=== PATIENT | female | born 1960 | race Two or more races ===

== ENCOUNTER 2020-01-08 15:55 | Outpatient (REF) | payer OTHER, SELFPAY ==
[2020-01-08 17:12] LABS: MANUAL DIFF FLAG NO
[2020-01-08 17:29] LABS: Basophils Percent Auto 0.3 % (0-2); Eosinophils Absolute Auto 0.1 X10*3/uL (0.0-0.4); Eosinophils Percent Auto 0.8 % (0-4); Hematocrit 32.1 % (37-47); Hemoglobin 9.9 g/dl (12.0-16.0); Imm Gran Abs Auto 0.01 X10*3/uL (0.00-0.03); Imm Gran Pct Auto 0.2 % (0.0-0.4); Immature Retic Fraction 7.7 % (3.0-15.9); Lymphocytes Absolute Auto 2.4 X10*3/uL (1.2-4.9); Lymphocytes Percent Auto 36.4 % (20-40); Mean Corpuscular HGB Conc 30.8 g/dl (31.0-35.0); Mean Corpuscular Hemoglobin 23.4 pg (27.0-33.0); Mean Corpuscular Volume 75.9 fL (80-98); Mean Platelet Volume 11.1 fL (9.4-12.3); Monocytes Absolute Auto 0.7 X10*3/uL (0.1-1.2); Monocytes Percent Auto 10.8 % (2-11); Neutrophils Absolute Auto 3.4 X10*3/uL (2.0-8.3); Neutrophils Percent Auto 51.5 % (45-73); Platelet Count 238 X10*3/uL (160-400); Red Blood Count 4.23 X10*6/uL (4.20-5.50); Red Cell Distribution Width 13.8 % (11.0-16.0); Retic HGB Equivalent 26.3 pg (30.0-35.0); Reticulocytes Absolute 0.041 X10*6/uL (0.026-0.095); White Blood Count 6.5 X10*3/uL (4.8-10.8)
[2020-01-08 17:54] LABS: Alanine Aminotransferase 45 U/L (0-31); Albumin Level 4.4 g/dL (3.5-5.0); Alkaline Phosphatase 55 U/L (39-117); Anion Gap 9 (12-20); Aspartate Amino Transferase 33 U/L (5-31); Bilirubin Total 0.2 mg/dL (0.0-1.0); Blood Urea Nitrogen 24 mg/dL (9-16); Calcium 9.4 mg/dL (8.4-10.2); Carbon Dioxide 30 mmol/L (22-29); Chloride 106 mmol/L (96-108); Estimated Glomerular Filt Rate > 60; Glucose Random 72 mg/dL (60-115); Potassium 4.4 mmol/l (3.3-5.1); Sodium 141 mmol/L (135-145); Total Protein 7.4 g/dL (6.5-8.0)
[2020-01-08 17:57] LABS: Ferritin 630 ng/mL (10-250)
== END 2020-01-08 15:56 | disposition home or self-care (01) ==
LOC: HO.LAB 15:55
PROVIDERS: PCP Internal Medicine; Visit Provider Internal Medicine Medical Oncology
DX: Z86.2 Personal history of diseases of the blood and blood-forming organs and certain disorders involving the immune mechanism (principal)
CPT/HCPCS: 36415; 80053; 82728; 85025; 85045

== ENCOUNTER 2020-02-29 10:09 | Outpatient (REF) | payer OTHER, SELFPAY ==
[2020-02-29 11:30] LABS: MANUAL DIFF FLAG NO
[2020-02-29 11:50] LABS: Basophils Percent Auto 0.3 % (0-2); Eosinophils Percent Auto 0.6 % (0-4); Hematocrit 31.9 % (37-47); Imm Gran Abs Auto 0.02 X10*3/uL (0.00-0.03); Imm Gran Pct Auto 0.3 % (0.0-0.4); Lymphocytes Absolute Auto 2.2 X10*3/uL (1.2-4.9); Lymphocytes Percent Auto 31.4 % (20-40); Mean Corpuscular HGB Conc 31.3 g/dl (31.0-35.0); Mean Corpuscular Hemoglobin 23.4 pg (27.0-33.0); Mean Corpuscular Volume 74.7 fL (80-98); Mean Platelet Volume 10.8 fL (9.4-12.3); Monocytes Absolute Auto 0.6 X10*3/uL (0.1-1.2); Monocytes Percent Auto 8.1 % (2-11); Neutrophils Absolute Auto 4.1 X10*3/uL (2.0-8.3); Neutrophils Percent Auto 59.3 % (45-73); Platelet Count 244 X10*3/uL (160-400); Red Blood Count 4.27 X10*6/uL (4.20-5.50); Red Cell Distribution Width 13.7 % (11.0-16.0); White Blood Count 6.9 X10*3/uL (4.8-10.8)
[2020-02-29 12:02] LABS: Alanine Aminotransferase 40 U/L (0-31); Albumin Level 4.6 g/dL (3.5-5.0); Alkaline Phosphatase 52 U/L (39-117); Anion Gap 13 (12-20); Aspartate Amino Transferase 31 U/L (5-31); Bilirubin Total 0.3 mg/dL (0.0-1.0); Blood Urea Nitrogen 18 mg/dL (9-16); Calcium 9.4 mg/dL (8.4-10.2); Carbon Dioxide 27 mmol/L (22-29); Chloride 105 mmol/L (96-108); Estimated Glomerular Filt Rate > 60; Glucose Random 78 mg/dL (60-115); Potassium 4.5 mmol/l (3.3-5.1); Sodium 140 mmol/L (135-145); Total Protein 7.9 g/dL (6.5-8.0)
== END 2020-02-29 10:10 | disposition home or self-care (01) ==
LOC: HO.LAB 10:09
PROVIDERS: PCP Internal Medicine; Visit Provider Internal Medicine
DX: R42 Dizziness and giddiness (principal); R55 Syncope and collapse
CPT/HCPCS: 36415; 80053; 85025

== ENCOUNTER 2020-02-29 10:33 | Outpatient (REF) | payer OTHER, SELFPAY | END 2020-02-29 10:34 | disposition home or self-care (01) | LOC: HO.US 10:33 | PROVIDERS: PCP Internal Medicine; Visit Provider Internal Medicine | DX: Z13.89 Encounter for screening for other disorder (principal) ==

== ENCOUNTER 2020-03-08 14:46 | Outpatient (REF) | payer OTHER, SELFPAY ==
--- NOTE | 2020-03-08 | US_ITS ---
EXAMINATION: US EXTRACRANIAL CAROTID DUPLEX, BILATERAL CLINICAL INFORMATION: Syncope. Dizziness. COMPARISON: None TECHNIQUE: Real-time ultrasound and Doppler techniques (integrating B-mode 2-D vascular images, Doppler spectral analysis and color-flow Doppler imaging) were utilized to interrogate the extracranial carotid arteries, the vertebral arteries and proximal subclavian arteries bilaterally. The degree of stenosis is determined by criteria similar to NASCET. FINDINGS: Right Side: 1. There is no significant atherosclerotic plaque seen in the bifurcation/proximal ICA region. There is some mild calcified plaque with shadowing seen within the right external carotid artery. 2. The common carotid artery PSV proximally is 113 cm/s and distally 93 cm/s. 3. The proximal internal carotid artery velocities are 105 cm/s systolic and 24 cm/s diastolic. 4. The proximal external carotid artery PSV is 130 cm/s. 5. The vertebral artery shows antegrade flow. 6. The subclavian artery waveforms are normal. Left Side: 1. There is no significant atherosclerotic plaque seen in the bifurcation/proximal ICA region. There is some mild calcified plaque with shadowing seen within the left external carotid artery. 2. The common carotid artery PSV proximally is 126 cm/s and distally 111 cm/s. 3. The proximal internal carotid artery velocities are 66 cm/s systolic and 19 cm/s diastolic. 4. The proximal external carotid artery PSV is 98 cm/s. 5. The vertebral artery shows antegrade flow. 6. The subclavian artery waveforms are normal. US/US carotid duplex BI IMPRESSION: 1. RIGHT: Minimal, non-hemodynamically significant stenosis of the proximal right internal carotid artery corresponding to a 0-49% stenosis by velocity criteria. 2. LEFT: Minimal, non-hemodynamically significant stenosis of the proximal left internal carotid artery corresponding to a 0-49% stenosis by velocity criteria.
== END 2020-03-08 14:47 | disposition home or self-care (01) ==
LOC: HO.US 14:46
PROVIDERS: PCP Internal Medicine; Visit Provider Internal Medicine
DX: R55 Syncope and collapse (principal); R42 Dizziness and giddiness
CPT/HCPCS: 93880

== ENCOUNTER → 2020-03-11 13:08 | Outpatient (BNVA) | payer OTHER, SELFPAY | PROVIDERS: PCP Internal Medicine; Visit Provider Nurse Practitioner | DX: Z76.89 Persons encountering health services in other specified circumstances (principal) ==

== ENCOUNTER 2020-04-02 09:34 | Outpatient (REF) | payer OTHER, SELFPAY ==
[2020-04-02 10:31] LABS: Alanine Aminotransferase 31 U/L (0-31); Albumin Level 4.7 g/dL (3.5-5.0); Alkaline Phosphatase 52 U/L (39-117); Anion Gap 10 (12-20); Aspartate Amino Transferase 26 U/L (5-31); Bilirubin Total 0.4 mg/dL (0.0-1.0); Blood Urea Nitrogen 19 mg/dL (9-16); Calcium 9.2 mg/dL (8.4-10.2); Carbon Dioxide 32 mmol/L (22-29); Chloride 103 mmol/L (96-108); Cholesterol 288 mg/dL; Estimated Glomerular Filt Rate > 60; Glucose Fasting 93 mg/dL (60-99); HDL Cholesterol 63 mg/dL; LDL Cholesterol Calculated 201 mg/dl; Potassium 4.2 mmol/l (3.3-5.1); Sodium 141 mmol/L (135-145); Total Protein 7.9 g/dL (6.5-8.0); Triglycerides 121 mg/dL
[2020-04-02 10:51] LABS: Ferritin 836 ng/mL (10-250); Thyroid Stimulating Hormone 1.72 uIU/mL (0.32-4.0)
== END 2020-04-02 09:35 | disposition home or self-care (01) ==
LOC: HO.LAB 09:34
PROVIDERS: PCP Internal Medicine; Visit Provider Internal Medicine
DX: D64.89 Other specified anemias (principal); E04.2 Nontoxic multinodular goiter; R42 Dizziness and giddiness; R55 Syncope and collapse
CPT/HCPCS: 36415; 80053; 80061; 82728; 84443

== ENCOUNTER → 2020-05-06 13:19 | Outpatient (BNVA) | payer OTHER, SELFPAY | PROVIDERS: PCP Internal Medicine; Visit Provider Nurse Practitioner ==

== ENCOUNTER 2020-05-24 06:28 | Outpatient (REF) | payer OTHER, SELFPAY ==
[2020-05-24 07:51] LABS: Alanine Aminotransferase 82 U/L (0-31); Albumin Level 4.5 g/dL (3.5-5.0); Alkaline Phosphatase 57 U/L (39-117); Anion Gap 13 (12-20); Aspartate Amino Transferase 48 U/L (5-31); Bilirubin Total 0.5 mg/dL (0.0-1.0); Blood Urea Nitrogen 13 mg/dL (9-16); Calcium 8.9 mg/dL (8.4-10.2); Carbon Dioxide 27 mmol/L (22-29); Chloride 106 mmol/L (96-108); Cholesterol 124 mg/dL; Estimated Glomerular Filt Rate > 60; Glucose Random 89 mg/dL (60-115); HDL Cholesterol 60 mg/dL; LDL Cholesterol Calculated 52 mg/dl; Potassium 4.7 mmol/L (3.3-5.1); Sodium 141 mmol/L (135-145); Total Protein 7.6 g/dL (6.5-8.0); Triglycerides 63 mg/dL
== END 2020-05-24 06:29 | disposition home or self-care (01) ==
LOC: HO.LAB 06:28
PROVIDERS: PCP Internal Medicine; Visit Provider Internal Medicine
DX: D64.89 Other specified anemias (principal); E78.01 Familial hypercholesterolemia; H81.11 Benign paroxysmal vertigo, right ear; H92.01 Otalgia, right ear
CPT/HCPCS: 36415; 80053; 80061

== ENCOUNTER 2020-06-02 09:08 | Outpatient (REF) | payer OTHER, SELFPAY ==
--- NOTE | ~2020-06-02 | US_ITS ---
EXAMINATION: US THYROID CLINICAL INFORMATION: Nontoxic multinodular goiter. COMPARISON: Ultrasound soft tissue head/neck thyroid dated 02/03/2018 and 01/14/2017. TECHNIQUE: Linear transducer grayscale and color Doppler examination with attention to the region of the thyroid. FINDINGS: SIZE: Measurements of the thyroid lobes and nodules are given in sagittal, anteroposterior and transverse dimensions respectively. Right Thyroid Lobe: 5.7 x 1.3 x 1.2 cm, volume 4.7 mL. Previously 5.0 x 1.4 x 1.5 cm, volume 5.4 mL. Parenchyma: The gland echotexture is heterogeneous. Thyroid vascularity is increased. Left Thyroid Lobe: 4.2 x 1.1 x 1.2 cm, volume 2.9 mL. Previously 4.1 x 0.9 x 1.0 cm, volume 2.0 mL. Parenchyma: The gland echotexture is heterogeneous. Thyroid vascularity is increased. Isthmus: 0.5 cm in maximum AP dimension. Previously 0.3 cm. Estimated total number of nodules greater than or equal to 1 cm: 0. [employer] nodules are described as follows: 1. Location: Right mid. Size: 0.8 x 0.5 x 0.5 cm, volume 0.1 mL. Previously: 0.6 x 0.4 x 0.4 cm, volume 0.08 mL. Nodule characteristics: Composition: Solid (2). Echogenicity: Very hypoechoic (3). Shape: Not taller than wide (0). Margins: Lobulated (2). Echogenic Foci: None (0). ACR TI-RADS total points: 7 ACR TI-RADS category: 5 Significant change in size (>/= 20% in 2 dimensions and minimal increase of 2 mm or 50% or greater increase in volume): None Change in features: None Change in ACR TI-RADS risk category: Not applicable. 2. Location: Right mid. Size: 0.8 x 0.5 x 0.8 cm, volume 0.2 mL. Previously: 0.5 x 0.4 x 0.5 cm, volume 0.05 mL. Nodule characteristics: Composition: Solid (2). Echogenicity: Hypoechoic (2). Shape: Not taller than wide (0). Margins: Ill-defined (0). Echogenic Foci: None (0). ACR TI-RADS total points: 4 ACR TI-RADS category: 4 Significant change in size (>/= 20% in 2 dimensions and minimal increase of 2 mm or 50% or greater increase in volume): None Change in features: None Change in ACR TI-RADS risk category: Not applicable. 3. Location: Isthmus. Size: 0.6 x 0.5 x 0.7 cm, volume 0.1 mL. Previously: 0.5 x 0.3 x 0.4 cm, volume 0.03 mL. Nodule characteristics: Composition: Solid (2). Echogenicity: Hypoechoic (2). Shape: Not taller than wide (0). Margins: Smooth (0). Echogenic Foci: None (0). ACR TI-RADS total points: 4 ACR TI-RADS category: 4 Significant change in size (>/= 20% in 2 dimensions and minimal increase of 2 mm or 50% or greater increase in volume): None Change in features: None Change in ACR TI-RADS risk category: Not applicable. 4. Location: Left mid. Size: 0.5 x 0.4 x 0.4 cm, volume 0.04 mL. Previously: 0.5 x 0.3 x 0.4 cm, volume 0.03 mL. Nodule characteristics: Composition: Solid (2). Echogenicity: Isoechoic (1). Shape: Not taller than wide (0). Margins: Smooth (0). Echogenic Foci: None (0). ACR TI-RADS total points: 3 ACR TI-RADS category: 3 Significant change in size (>/= 20% in 2 dimensions and minimal increase of 2 mm or 50% or greater increase in volume): None Change in features: None Change in ACR TI-RADS risk category: Not applicable. NODES: No lymphadenopathy is seen in the tissue surrounding the thyroid gland. US/US thyroid IMPRESSION: Subcentimeter thyroid nodules bilaterally as described above are stable. The 4 largest nodules are mentioned above. Recommend continued followup. ACR TI-RADS RECOMMENDATION REFERENCE: Ultrasound-guided fine-needle aspiration, followup ultrasound, no further follow up. * TR1 (0 point) and TR 2 (2 points): No FNA or follow up * TR3 (3 points): FNA if more than or equal to 2.5 cm in maximum dimension, followup ultrasound in 1, 3 and 5 years if 1.5 to 2.4 cm in maximum dimension. * TR4 (4-6 points): FNA if more than or equal to 1.5 cm in maximum dimension, followup ultrasound in 1, 2, 3 and 5 years if 1 to 1.4 cm in maximum dimension. * TR5 (more than or equal to 7 points): FNA if more than or equal to 1 cm in maximum dimension, followup ultrasound every year for 5 years if 0.5 to 0.9 cm in maximum dimension. * TR3, TR4 or TR5 nodules that are below the size threshold for follow up receive no follow up.
== END 2020-06-02 09:09 | disposition home or self-care (01) ==
LOC: HO.US 09:08
PROVIDERS: PCP Internal Medicine; Visit Provider Internal Medicine
DX: E04.2 Nontoxic multinodular goiter (principal)
CPT/HCPCS: 76536

== ENCOUNTER → 2020-06-17 13:13 | Outpatient (BNVA) | payer OTHER, SELFPAY | PROVIDERS: PCP Internal Medicine; Visit Provider Nurse Practitioner | DX: K21.9 Gastro-esophageal reflux disease without esophagitis (principal); K59.00 Constipation, unspecified | CPT/HCPCS: 99212 ==

== ENCOUNTER → 2020-11-23 09:35 | Outpatient (BNVA) | payer OTHER, SELFPAY | PROVIDERS: PCP Internal Medicine; Visit Provider Internal Medicine | DX: E04.2 Nontoxic multinodular goiter (principal); E55.9 Vitamin D deficiency, unspecified | CPT/HCPCS: 99202 ==

== ENCOUNTER 2020-11-23 10:37 | Outpatient (REF) | payer OTHER, SELFPAY ==
[2020-11-23 14:58] LABS: Thyroid Stimulating Hormone 1.35 uIU/mL (0.32-4.0)
== END 2020-11-23 10:38 | disposition home or self-care (01) ==
LOC: HO.10HDL 10:37
PROVIDERS: Visit Provider Internal Medicine
DX: E04.2 Nontoxic multinodular goiter (principal); E55.9 Vitamin D deficiency, unspecified
CPT/HCPCS: 36415; 82306; 84439; 84443

== ENCOUNTER → 2020-12-06 14:48 | Outpatient (BNVA) | payer OTHER, SELFPAY | PROVIDERS: PCP Internal Medicine; Visit Provider Nurse Practitioner ==

== ENCOUNTER 2020-12-10 10:26 | Outpatient (REF) | payer OTHER, SELFPAY ==
[2020-12-10 11:12] LABS: Appearance Urine CLEAR; Color Urine STRAW; Glucose Urine UA NEG (NEG); Leukocyte Esterase Urine NEG (NEG); Nitrite Urine NEG (NEG); Specific Gravity - Urine <= 1.005 (1.005-1.025); UACC Culture Trigger NO; Urine Blood 1+ (NEG); Urine Ketones NEG (NEG); Urine Protein NEG (NEG-TRACE)
[2020-12-10 11:25] LABS: RBC Urine 0-2 /HPF (0); Squamous Epithelial Cell Urine TRACE /LPF; WBC Urine 0 /HPF (0-4)
== END 2020-12-10 10:27 | disposition home or self-care (01) ==
LOC: HO.LAB 10:26
PROVIDERS: PCP Internal Medicine; Visit Provider Nurse Practitioner
DX: R35.0 Frequency of micturition (principal)
CPT/HCPCS: 81001

== ENCOUNTER 2020-12-25 18:47 | Emergency (ER) | payer OTHER, SELFPAY ==
[2020-12-25 18:51] VITALS: BP 129/67; PULSE 68; RESP 18; TEMP 36.6; O2SAT 99; BMI 21.9
[2020-12-25 19:21] VITALS: BP 136/55; PULSE 68; RESP 18; TEMP 36.4; O2SAT 99
--- NOTE | 2020-12-25 20:23 | ED.ALLEREA ---
HPI - Allergic Reaction General Chief complaint: Allergic Reaction Stated complaint: allergic reaction Time Seen by Provider: 12/25/20 19:56 Source: patient Mode of arrival: ambulatory Limitations: no limitations History of Present Illness HPI narrative: Patient presents to the ED for itchy rash on extremities, neck, and llower extremities. Patient states began 3 hours after eating at a restaurant last night. Patient denies swelling of lips, tongue, or sensation of throat closing. MD complaint: allergic reaction Related Data Home Medications Medication Instructions Recorded Confirmed magnesium oxide 400 mg (241.3 mg 400 mg PO BID 06/17/20 11/23/20 magnesium) tablet rosuvastatin 40 mg tablet 40 mg PO BEDTIME 06/17/20 11/23/20 Previous Rx's Medication Instructions Recorded omeprazole 20 mg capsule,delayed 20 mg PO DAILY 30 Days #30 cap 05/06/20 release diphenhydramine HCl 25 mg capsule 25 mg PO TID PRN #30 cap 12/25/20 (Benadryl) famotidine 20 mg tablet (Pepcid) 20 mg PO BID 7 Days #14 tab 12/25/20 prednisone 20 mg tablet 60 mg PO DAILY 7 Days #21 tab 12/25/20 Allergies Allergy/AdvReac Type Severity Reaction Status Date / Time No Known Allergies Allergy Verified 12/25/20 18:50 [No Known Allergies*] Review of Systems Review of Systems: Yes all other systems are reviewed and are negative Constitutional: Constitutional: Reports as per HPI and Reports no additional constitutional complaints Eyes: Eyes: Reports as per HPI and Reports no additional eye complaints ENT: Reports system reviewed and no additional complaints, except as documented and Reports as per HPI Cardiovascular: Cardiovascular: Reports as per HPI and Reports no additional cardiovascular complaints Respiratory: Respiratory: Reports as per HPI and Reports no additional respiratory complaints Gastrointestinal: Gastrointestinal: Reports as per HPI and Reports no additional gastrointestinal complaints Genitourinary: Genitourinary: Reports no additional female genitourinary complaints and Reports as per HPI Musculoskeletal: Musculoskeletal: Reports no additional musculoskeletal complaints Integumentary/Breasts: Skin/Breast: Reports system reviewed and no additional complaints, except as docu and Reports as per HPI Comments: itchy rash on skin Neurologic: Reports system reviewed and no additional complaints, except as documented and Reports as per HPI Psychiatric: Psychiatric: Reports no additional psychiatric complaints and Reports as per HPI [facility] Past Medical History Medical History Multinodular thyroid Vitamin D deficiency Surgical History H/O blepharoplasty History of colonoscopy History of esophagogastroduodenoscopy (EGD) Family History Family History Father Leukemia Mother Colon cancer Sister Diabetes Hypertension Social History Social History Household Members: Children Alcohol intake: current Alcohol intake frequency: does not drink Patient Tobacco Use Status: Never used Tobacco Advance Directives: No Advance Directives Information Provided: No Patient : No Physical Exam Vital Signs: Vital Signs: Last Vital Signs Temp 97.5 F 12/25/20 19: Pulse 68 12/25/20 19:21 Resp 18 12/25/20 19:21 BP 136/55 L 12/25/20 19:21 Pulse Ox 99 12/25/20 19:21 Body Mass Index 21.9 Const: General: cooperative, healthy appearing, comfortable, no acute distress, well developed, alert, awake and Physically active Orientation/consciousness: patient oriented x3 HENMT: Other: rash on forehead. negative for swelling of tongue, lips, or uvula Head: Yes normal to inspection, Yes No palpable skull fracture present, Yes normocephalic and Yes atraumatic Head images: 1. itchy rash 2. itchy rash Eyes: General: appearance normal, both eyes and all related structures Neck: Other: itchy rash Chest: Chest palpation & inspection: normal inspection of the chest and normal palpation of entire chest wall Resp: Effort & Inspection: normal respiratory effort and able to speak in complete sentences Auscultation: clear to auscultation bilaterally GI: Inspection: Yes normal to inspection and No abdominal wall ecchymosis Palpation (GI): Soft to palpation, not firm, nontender, no guarding and not rigid : General: No CVA tenderness and Yes no CVA tenderness Back/Spine/Pelvis: Back: no CVA tenderness, No CVA tenderness and No back tenderness Skin: Other: itchy rash. no rash on chest/abdomen/back pain Full body images: 1. itchy rash. 2. itchy rash 3. ithcy rash 4. itchy rash 5. itchy rash 6. itchy rash. Neuro: General: patient oriented x3, gait normal and CN's II-XI intact bilaterally Cranial nerves: Yes CN's II-XII intact bilaterally Extrem: Other: itchy rash General: Yes normal to inspection and Yes full ROM Psych: Appearance: grossly normal, well kempt and not disheveled Course Course Course Narrative: Itchy rash Reevaluation(s) Reevaluation #1: Itchy rash. Rash is not vesicular or viral looking. Rash evaluated with Dr. Sheriff who states it may be some form of contact dermaitis/rash reaction Time: 20:47 MDM - Allergic Reaction MDM Narrative Medical decision making narrative: Dermatitis Discharge Plan Discharge Clinical Impression: Contact dermatitis Patient Disposition: Home, Self-Care Instructions: Contact Dermatitis (ED) Additional Instructions: Se le isaias? de earl con esteroides orales, Benadryl y Pepcid. Regrese al servicio de urgencias si tiene hinchaz?n de los labios, hinchaz?n de la lengua, sensaci?n de cierre de la garganta, dificultad para respirar, fiebre, escalofr?os, empeoramiento de la erupci?n o cualquier otro s?ntoma preocupante. Jas un seguimiento con el proveedor de atenci?n primaria. Prescriptions: New prednisone 20 mg tablet 60 mg PO DAILY 7 Days Qty: 21 RF: 0 famotidine [Pepcid] 20 mg tablet 20 mg PO BID 7 Days Qty: 14 RF: 0 diphenhydramine HCl [Benadryl] 25 mg capsule 25 mg PO TID PRN (Reason: itchiness) Qty: 30 RF: 0 No Action rosuvastatin 40 mg tablet 40 mg PO BEDTIME RF: 0 magnesium oxide 400 mg (241.3 mg magnesium) tablet 400 mg PO BID RF: 0 omeprazole 20 mg capsule,delayed release(DR/EC) 20 mg PO DAILY 30 Days Qty: 30 RF: 6 Print Language: Armenian
[2020-12-25] MEDS: predniSONE 20 MG TABLET 60 MG PO (20:31)
[2020-12-25] MEDS: diphenhydrAMINE HCL 25 MG TABLET 50 MG PO (20:31)
[2020-12-25] MEDS: Famotidine 20 MG TABLET PO (20:31)
== END 2020-12-25 21:35 | disposition home or self-care (01) ==
PROVIDERS: Emergency Provider Emergency Medicine Emergency Medical Services; PCP Internal Medicine
DX: L25.9 Unspecified contact dermatitis, unspecified cause (principal); Z79.899 Other long term (current) drug therapy
CPT/HCPCS: 99283; 99284; Q0163

== ENCOUNTER 2021-01-10 06:31 | Outpatient (REF) | payer OTHER, SELFPAY ==
[2021-01-10 06:39] LABS: MANUAL DIFF FLAG NO
[2021-01-10 07:16] LABS: Basophils Percent Auto 0.3 % (0-2); Eosinophils Absolute Auto 0.1 X10*3/uL (0.0-0.4); Eosinophils Percent Auto 0.8 % (0-4); Hematocrit 34.1 % (37-47); Hemoglobin 10.5 g/dl (12.0-16.0); Imm Gran Abs Auto 0.02 X10*3/uL (0.00-0.03); Imm Gran Pct Auto 0.3 % (0.0-0.4); Lymphocytes Absolute Auto 2.3 X10*3/uL (1.2-4.9); Lymphocytes Percent Auto 36.1 % (20-40); Mean Corpuscular HGB Conc 30.8 g/dl (31.0-35.0); Mean Corpuscular Hemoglobin 23.1 pg (27.0-33.0); Mean Corpuscular Volume 75.1 fL (80-98); Mean Platelet Volume 9.6 fL (9.4-12.3); Monocytes Absolute Auto 0.7 X10*3/uL (0.1-1.2); Monocytes Percent Auto 10.8 % (2-11); Neutrophils Absolute Auto 3.3 X10*3/uL (2.0-8.3); Neutrophils Percent Auto 51.7 % (45-73); Platelet Count 247 X10*3/uL (160-400); Red Blood Count 4.54 X10*6/uL (4.20-5.50); Red Cell Distribution Width 14.6 % (11.0-16.0); White Blood Count 6.3 X10*3/uL (4.8-10.8)
[2021-01-10 07:42] LABS: Alanine Aminotransferase 36 U/L (0-31); Albumin Level 4.1 g/dL (3.5-5.0); Alkaline Phosphatase 56 U/L (39-117); Anion Gap 11 (12-20); Aspartate Amino Transferase 25 U/L (5-31); Bilirubin Total 0.2 mg/dL (0.0-1.0); Blood Urea Nitrogen 15 mg/dL (9-16); Calcium 8.9 mg/dL (8.4-10.2); Carbon Dioxide 28 mmol/L (22-29); Chloride 106 mmol/L (96-108); Estimated Glomerular Filt Rate > 60; Glucose Random 94 mg/dL (60-115); Sodium 140 mmol/L (135-145)
[2021-01-10 08:02] LABS: Ferritin 750 ng/mL (10-250)
== END 2021-01-10 06:32 | disposition home or self-care (01) ==
LOC: HO.LAB 06:31
PROVIDERS: PCP Internal Medicine; Visit Provider Internal Medicine Medical Oncology
DX: H81.11 Benign paroxysmal vertigo, right ear (principal); R79.89 Other specified abnormal findings of blood chemistry; Z86.2 Personal history of diseases of the blood and blood-forming organs and certain disorders involving the immune mechanism
CPT/HCPCS: 36415; 80053; 82728; 85025

== ENCOUNTER 2021-01-12 10:15 | Outpatient (REF) | payer OTHER, SELFPAY ==
[2021-01-12 10:51] LABS: MANUAL DIFF FLAG NO
[2021-01-12 11:17] LABS: Basophils Percent Auto 0.5 % (0-2); Eosinophils Percent Auto 0.5 % (0-4); Hematocrit 34.3 % (37-47); Hemoglobin 10.5 g/dl (12.0-16.0); Imm Gran Abs Auto 0.01 X10*3/uL (0.00-0.03); Imm Gran Pct Auto 0.2 % (0.0-0.4); Lymphocytes Absolute Auto 1.9 X10*3/uL (1.2-4.9); Lymphocytes Percent Auto 35.2 % (20-40); Mean Corpuscular HGB Conc 30.6 g/dl (31.0-35.0); Mean Corpuscular Hemoglobin 23.1 pg (27.0-33.0); Mean Corpuscular Volume 75.6 fL (80-98); Mean Platelet Volume 11.7 fL (9.4-12.3); Monocytes Absolute Auto 0.5 X10*3/uL (0.1-1.2); Monocytes Percent Auto 8.9 % (2-11); Neutrophils Percent Auto 54.7 % (45-73); Platelet Count 232 X10*3/uL (160-400); Red Blood Count 4.54 X10*6/uL (4.20-5.50); Red Cell Distribution Width 14.9 % (11.0-16.0); White Blood Count 5.5 X10*3/uL (4.8-10.8)
[2021-01-12 11:52] LABS: Alanine Aminotransferase 36 U/L (0-31); Albumin Level 4.3 g/dL (3.5-5.0); Alkaline Phosphatase 54 U/L (39-117); Anion Gap 10 (12-20); Aspartate Amino Transferase 25 U/L (5-31); Bilirubin Total 0.5 mg/dL (0.0-1.0); Blood Urea Nitrogen 14 mg/dL (9-16); Calcium 9.3 mg/dL (8.4-10.2); Carbon Dioxide 27 mmol/L (22-29); Chloride 108 mmol/L (96-108); Cholesterol 200 mg/dL; Estimated Glomerular Filt Rate > 60; Glucose Random 87 mg/dL (60-115); HDL Cholesterol 70 mg/dL; LDL Cholesterol Calculated 119 mg/dl; Potassium 4.3 mmol/L (3.3-5.1); Sodium 141 mmol/L (135-145); Total Protein 7.3 g/dL (6.5-8.0); Triglycerides 56 mg/dL
[2021-01-12 12:32] LABS: Ferritin 786 ng/mL (10-250)
== END 2021-01-12 10:16 | disposition home or self-care (01) ==
LOC: HO.10HDL 10:15
PROVIDERS: Visit Provider Internal Medicine
DX: D50.8 Other iron deficiency anemias (principal); E78.00 Pure hypercholesterolemia, unspecified; H81.12 Benign paroxysmal vertigo, left ear; M51.15 Intervertebral disc disorders with radiculopathy, thoracolumbar region; R21 Rash and other nonspecific skin eruption
CPT/HCPCS: 36415; 80053; 80061; 82728; 85025

== ENCOUNTER 2021-02-20 10:36 | Outpatient (REF) | payer OTHER, SELFPAY ==
[2021-02-20 14:15] LABS: Hemoglobin 10.3 g/dl (12.0-16.0)
[2021-02-20 14:42] LABS: Iron 88 mcg/dL (30-160); Percent Iron Saturation 37 % (15-50); Total Iron Binding Capacity 241 mcg/dL (228-428); Unsaturated Iron Binding 153 ug/dL
[2021-02-20 14:47] LABS: Ferritin 683 ng/mL (10-250)
[2021-02-20 14:49] LABS: Free T4 (Free Thyroxine) 0.92 ng/dL (0.71-1.85); Thyroid Stimulating Hormone 1.34 uIU/mL (0.32-4.0)
[2021-02-22 15:40] LABS: Prot Elec - Albumin 4.1 g/dL (3.8-4.8); Prot Elec - Alpha1 0.2 g/dL (0.2-0.3); Prot Elec - Alpha2 0.7 g/dL (0.5-0.9); Prot Elec - Beta 1 0.4 g/dL (0.4-0.6); Prot Elec - Beta 2 0.4 g/dL (0.2-0.5); Prot Elec - Gamma 1.2 g/dL (0.8-1.7); Prot Elec - Total Protein 6.9 g/dL (6.1-8.1)
== END 2021-02-20 10:37 | disposition home or self-care (01) ==
LOC: HO.10HDL 10:36
PROVIDERS: Absent Provider Internal Medicine Medical Oncology; Visit Provider Internal Medicine
DX: R79.89 Other specified abnormal findings of blood chemistry (principal); E04.2 Nontoxic multinodular goiter; Z86.2 Personal history of diseases of the blood and blood-forming organs and certain disorders involving the immune mechanism
CPT/HCPCS: 36415; 82728; 83540; 84165; 84439; 84443; 85018

== ENCOUNTER → 2021-02-23 09:38 | Outpatient (BNV) | payer OTHER, SELFPAY | PROVIDERS: PCP Internal Medicine; Referring Provider Internal Medicine Medical Oncology; Visit Provider Internal Medicine Medical Oncology | DX: D50.9 Iron deficiency anemia, unspecified (principal) | CPT/HCPCS: 99203; 99212; 99213; 99214 ==

== ENCOUNTER 2021-05-25 11:12 | Outpatient (REF) | payer OTHER, SELFPAY ==
--- NOTE | ~2021-05-25 | US_ITS ---
EXAMINATION: US THYROID CLINICAL INFORMATION: Goiter. COMPARISON: Ultrasound soft tissue head/neck thyroid dated 06/02/2020 and 02/03/2018. TECHNIQUE: Linear transducer dumas-scale and color Doppler examination with attention to the region of the thyroid. FINDINGS: SIZE: Measurements of the thyroid lobes and nodules are given in sagittal, anteroposterior and transverse dimensions respectively. Right Thyroid Lobe: 5.7 x 1.0 x 1.3 cm, volume 4.3 mL. Previously 5.7 x 1.3 x 1.2 cm, volume 4.7 mL. Parenchyma: The gland echotexture is heterogeneous. Thyroid vascularity is increased. Left Thyroid Lobe: 4.4 x 1.1 x 1.4 cm, volume 3.3 mL. Previously 4.2 x 1.1 x 1.2 cm, volume 2.9 mL. Parenchyma: The gland echotexture is heterogeneous. Thyroid vascularity is increased. Isthmus: 0.41 cm in maximum AP dimension. Previously 0.50 cm. Estimated total number of nodules greater than or equal to 1 cm: 2. [employer] nodules are described as follows: 1. Location: Isthmus. Size: 1.1 x 0.36 x 0.72 cm, volume 0.15 mL. Previously: 0.60 x 0.50 x 0.70 cm, volume 0.10 mL. Nodule characteristics: Composition: Solid (2). Echogenicity: Hypoechoic (2). Shape: Not taller than wide (0). Margins: Smooth (0). Echogenic Foci: None (0). ACR TI-RADS total points: 4 Previous: 4 ACR TI-RADS category: 4 Previous: 4 Significant change in size (>/= 20% in 2 dimensions and minimal increase of 2 mm or 50% or greater increase in volume): Change in features: Change in ACR TI-RADS risk category: 2. Location: Right mid. Size: 0.70 x 0.46 x 0.62 cm, volume 0.10 mL. Previously: 0.80 x 0.50 x 0.50 cm, volume 0.08 mL. Nodule characteristics: Composition: Spongiform (0). Echogenicity: Anechoic (0). Shape: Not taller than wide (0). Margins: Smooth (0). Echogenic Foci: None (0). ACR TI-RADS total points: 0 Previous: 7 ACR TI-RADS category: 1 Previous: 5 Significant change in size (>/= 20% in 2 dimensions and minimal increase of 2 mm or 50% or greater increase in volume): Change in features: Change in ACR TI-RADS risk category: 3. Location: Right mid. Size: 0.96 x 0.53 x 0.93 cm, volume 0.25 mL. Previously: 0.80 x 0.50 x 0.80 cm, volume 0.20 mL. Nodule characteristics: Composition: Mixed cystic and solid (1). Echogenicity: Hypoechoic (2). Shape: Not taller than wide (0). Margins: Smooth (0). Echogenic Foci: None (0). ACR TI-RADS total points: 3 Previous: 4 ACR TI-RADS category: 3 Previous: 4 Significant change in size (>/= 20% in 2 dimensions and minimal increase of 2 mm or 50% or greater increase in volume): Change in features: Change in ACR TI-RADS risk category: 4. Location: Left mid. Size: 1.2 x 0.45 x 0.83 cm, volume 0.24 mL. Previously: 0.50 x 0.38 x 0.39 cm, volume 0.03 mL. Nodule characteristics: Composition: Spongiform (0). Echogenicity: Anechoic (0). Shape: Not taller than wide (0). Margins: Smooth (0). Echogenic Foci: None (0). ACR TI-RADS total points: 0 Previous: 3 ACR TI-RADS category: 1 Previous: 3 Significant change in size (>/= 20% in 2 dimensions and minimal increase of 2 mm or 50% or greater increase in volume): Change in features: Change in ACR TI-RADS risk category: 5. Location: Left mid. Size: 0.36 x 0.30 x 0.30 cm, volume 0.02 mL. Previously: Not seen on the previous study. Nodule characteristics: Composition: Spongiform (0). Echogenicity: Anechoic (0). Shape: Not taller than wide (0). Margins: Smooth (0). Echogenic Foci: None (0). ACR TI-RADS total points: 0 ACR TI-RADS category: 1 NODES: No lymphadenopathy is seen in the tissue surrounding the thyroid gland. US/US thyroid IMPRESSION: Normal size heterogeneous slightly hypervascular thyroid gland. There is slight interval increase in size in the isthmus and left mid pole nodules. There is a newly appreciated small nodule in the left midpole. Otherwise nodules do not appear changed. ACR TI-RADS RECOMMENDATION REFERENCE: Ultrasound-guided fine-needle aspiration, followup ultrasound, no further follow up. * TR1 (0 point) and TR 2 (2 points): No FNA or follow up * TR3 (3 points): FNA if more than or equal to 2.5 cm in maximum dimension, followup ultrasound in 1, 3 and 5 years if 1.5 to 2.4 cm in maximum dimension. * TR4 (4-6 points): FNA if more than or equal to 1.5 cm in maximum dimension, followup ultrasound in 1, 2, 3 and 5 years if 1 to 1.4 cm in maximum dimension. * TR5 (more than or equal to 7 points): FNA if more than or equal to 1 cm in maximum dimension, followup ultrasound every year for 5 years if 0.5 to 0.9 cm in maximum dimension. * TR3, TR4 or TR5 nodules that are below the size threshold for follow up receive no follow up.
== END 2021-05-25 11:13 | disposition home or self-care (01) ==
LOC: HO.HMGCX 11:12
PROVIDERS: PCP Internal Medicine; Visit Provider Internal Medicine
DX: E04.1 Nontoxic single thyroid nodule (principal)
CPT/HCPCS: 76536

== ENCOUNTER 2021-06-19 08:33 | Outpatient (REF) | payer OTHER, SELFPAY ==
[2021-06-19 10:47] LABS: MANUAL DIFF FLAG NO
[2021-06-19 11:04] LABS: Basophils Percent Auto 0.4 % (0-2); Eosinophils Percent Auto 0.4 % (0-4); Hematocrit 37.7 % (37.0-47.0); Hemoglobin 11.3 g/dl (12.0-16.0); Imm Gran Abs Auto 0.01 X10*3/uL (0.00-0.03); Imm Gran Pct Auto 0.2 % (0.0-0.4); Lymphocytes Absolute Auto 1.8 X10*3/uL (1.2-4.9); Lymphocytes Percent Auto 37.2 % (20-40); Mean Corpuscular Hemoglobin 22.7 pg (27.0-33.0); Mean Corpuscular Volume 75.7 fL (80.0-98.0); Mean Platelet Volume 12.5 fL (9.4-12.3); Monocytes Absolute Auto 0.5 X10*3/uL (0.1-1.2); Monocytes Percent Auto 9.7 % (2-11); Neutrophils Absolute Auto 2.6 x10*3/uL (2.0-8.3); Neutrophils Percent Auto 52.1 % (45-73); Platelet Count 192 X10*3/uL (160-400); Red Blood Count 4.98 X10*6/uL (4.20-5.50)
[2021-06-19 11:21] LABS: Alanine Aminotransferase 23 U/L (0-31); Albumin Level 4.7 g/dL (3.5-5.0); Alkaline Phosphatase 55 U/L (39-117); Anion Gap 15 (12-20); Aspartate Amino Transferase 25 U/L (5-31); Bilirubin Total 0.6 mg/dL (0.0-1.0); Blood Urea Nitrogen 18 mg/dL (9-16); Calcium 9.8 mg/dL (8.4-10.2); Carbon Dioxide 27 mmol/L (22-29); Chloride 105 mmol/L (96-108); Cholesterol 241 mg/dL; Estimated Glomerular Filt Rate > 60; Glucose Random 92 mg/dL (60-115); HDL Cholesterol 65 mg/dL; LDL Cholesterol Calculated 158 mg/dl; Potassium 4.5 mmol/L (3.3-5.1); Sodium 142 mmol/L (135-145); Total Protein 8.3 g/dL (6.5-8.0); Triglycerides 92 mg/dL
[2021-06-19 11:37] LABS: Ferritin 737 ng/mL (10-250); Thyroid Stimulating Hormone 1.88 uIU/mL (0.32-4.0)
== END 2021-06-19 08:34 | disposition home or self-care (01) ==
LOC: HO.10HDL 08:33
PROVIDERS: Visit Provider Internal Medicine
DX: D64.9 Anemia, unspecified (principal); E04.2 Nontoxic multinodular goiter; E78.00 Pure hypercholesterolemia, unspecified; U09.9 Post COVID-19 condition, unspecified
CPT/HCPCS: 36415; 80053; 80061; 82728; 84443; 85025

== ENCOUNTER 2021-09-21 11:11 | Outpatient (REF) | payer OTHER, SELFPAY ==
[2021-09-21 13:47] LABS: MANUAL DIFF FLAG NO
[2021-09-21 13:51] LABS: Basophils Percent Auto 0.4 % (0-2); Eosinophils Percent Auto 0.2 % (0-4); Hematocrit 34.2 % (37.0-47.0); Hemoglobin 10.5 g/dl (12.0-16.0); Imm Gran Abs Auto 0.01 X10*3/uL (0.00-0.03); Imm Gran Pct Auto 0.2 % (0.0-0.4); Lymphocytes Absolute Auto 1.9 X10*3/uL (1.2-4.9); Mean Corpuscular HGB Conc 30.7 g/dl (31.0-35.0); Mean Corpuscular Hemoglobin 22.7 pg (27.0-33.0); Mean Platelet Volume 11.1 fL (9.4-12.3); Monocytes Absolute Auto 0.4 X10*3/uL (0.1-1.2); Monocytes Percent Auto 8.2 % (2-11); Neutrophils Absolute Auto 2.6 x10*3/uL (2.0-8.3); Platelet Count 239 X10*3/uL (160-400); Red Blood Count 4.62 X10*6/uL (4.20-5.50); Red Cell Distribution Width 13.9 % (11.0-16.0)
[2021-09-21 14:10] LABS: Alanine Aminotransferase 46 U/L (0-31); Albumin Level 4.5 g/dL (3.5-5.0); Alkaline Phosphatase 59 U/L (39-117); Anion Gap 12 (12-20); Aspartate Amino Transferase 32 U/L (5-31); Bilirubin Total 0.6 mg/dL (0.0-1.0); Blood Urea Nitrogen 15 mg/dL (9-16); Calcium 9.2 mg/dL (8.4-10.2); Carbon Dioxide 28 mmol/L (22-29); Chloride 106 mmol/L (96-108); Cholesterol 179 mg/dL; Estimated Glomerular Filt Rate > 60; Glucose Fasting 87 mg/dL (60-99); HDL Cholesterol 64 mg/dL; LDL Cholesterol Calculated 105 mg/dl; Potassium 4.6 mmol/L (3.3-5.1); Sodium 141 mmol/L (135-145); Total Protein 7.4 g/dL (6.5-8.0); Triglycerides 54 mg/dL
[2021-09-21 14:25] LABS: Ferritin 738 ng/mL (10-250); Thyroid Stimulating Hormone 1.66 uIU/mL (0.32-4.0)
== END 2021-09-21 11:12 | disposition home or self-care (01) ==
LOC: HO.10HDL 11:11
PROVIDERS: Visit Provider Internal Medicine
DX: D59.10 Autoimmune hemolytic anemia, unspecified (principal); E78.00 Pure hypercholesterolemia, unspecified
CPT/HCPCS: 36415; 80053; 80061; 82728; 84443; 85025

== ENCOUNTER 2021-12-17 10:29 | Emergency (ER) | payer OTHER, SELFPAY ==
--- NOTE | ~2021-12-17 | CT_ITS ---
EXAMINATION: CT ABDOMEN AND PELVIS WITHOUT CONTRAST CLINICAL INFORMATION: Left flank pain COMPARISON: Previous CT of the abdomen and pelvis October 2016 TECHNIQUE: Multidetector volumetric imaging was performed from the superior aspect of the liver through the pubic symphysis. Sagittal and coronal reformatted images were obtained on the technologist's workstation. This CT examination was performed using dose optimization techniques as appropriate, variously including the following: *Automated exposure control *Adjustment of mA and/or kV according to patient size (this includes techniques or standardized protocols for targeted exams where dose is matched to indication/reason for exam; i.e. extremities or head) *Use of iterative reconstruction technique DLP: 421 mGy-cm FINDINGS: LUNG BASES: The visualized lung bases are unremarkable. LIVER, GALLBLADDER, AND BILIARY TREE: The liver is normal in size, shape, and attenuation. No focal hepatic lesion or biliary ductal dilatation is present. The gallbladder is unremarkable with no evidence of radiopaque gallstones, gallbladder wall thickening, or obvious pericholecystic inflammatory changes. PANCREAS: Unremarkable. SPLEEN: Unremarkable. ADRENAL GLANDS: Unremarkable. KIDNEYS AND URETERS: There is a small 1 to 2 mm nonobstructing right upper pole renal stone. There is a small 2 mm left lower pole nonobstructing stone. No hydronephrosis or ureteral dilatation. There are several left pelvic calcifications probably representing calcified phleboliths. No definite left ureteral stone is seen. BLADDER: Unremarkable. GASTROINTESTINAL TRACT: The small and large bowel are unremarkable. The appendix is not identified with certainty. No inflammatory changes are seen in the right lower quadrant.. ABDOMINAL WALL: There is a small umbilical hernia containing fat. LYMPH NODES: Normal. VASCULAR: Unremarkable. PELVIC VISCERA: Unremarkable. OSSEOUS STRUCTURES: Unremarkable. CT/CT abdomen pelvis wo IV con IMPRESSION: Small bilateral renal stones. Fleischner guidelines were followed.
[2021-12-17 10:39] VITALS: BP 139/72; BP 140/90; PULSE 69; PULSE 80; RESP 16; TEMP 36.6; O2SAT 100; BMI 21.9
[2021-12-17] MEDS: ondansetron HCL 4 MG/2 ML VIAL IVPUSH (11:31)
[2021-12-17] MEDS: Morphine Sulfate 4 MG/ML CARTRIDGE IVPUSH (11:32)
[2021-12-17] MEDS: Ketorolac Tromethamine 30 MG/ML VIAL IVPUSH (11:32)
[2021-12-17 11:33] LABS: Basophils Percent Auto 0.5 % (0-2); Eosinophils Absolute Auto 0.1 X10*3/uL (0.0-0.4); Eosinophils Percent Auto 2.2 % (0-4); Hematocrit 36.1 % (37.0-47.0); Hemoglobin 11.5 g/dl (12.0-16.0); Imm Gran Abs Auto 0.01 X10*3/uL (0.00-0.03); Imm Gran Pct Auto 0.2 % (0.0-0.4); Lymphocytes Absolute Auto 2.2 X10*3/uL (1.2-4.9); Lymphocytes Percent Auto 34.3 % (20-40); MANUAL DIFF FLAG NO; Mean Corpuscular HGB Conc 31.9 g/dl (31.0-35.0); Mean Corpuscular Hemoglobin 23.4 pg (27.0-33.0); Mean Corpuscular Volume 73.4 fL (80.0-98.0); Mean Platelet Volume 10.9 fL (9.4-12.3); Monocytes Absolute Auto 0.5 X10*3/uL (0.1-1.2); Monocytes Percent Auto 7.7 % (2-11); Neutrophils Absolute Auto 3.5 x10*3/uL (2.0-8.3); Neutrophils Percent Auto 55.1 % (45-73); Platelet Count 237 X10*3/uL (160-400); Red Blood Count 4.92 X10*6/uL (4.20-5.50); White Blood Count 6.3 X10*3/uL (4.8-10.8)
[2021-12-17 12:32] LABS: Anion Gap 19 (12-20); Blood Urea Nitrogen 20 mg/dL (9-16); Calcium 9.7 mg/dL (8.4-10.2); Carbon Dioxide 23 mmol/L (22-29); Chloride 109 mmol/L (96-108); Creatinine Clr Calc Pharmacy 61.5; Estimated Glomerular Filt Rate > 60; Glucose Random 93 mg/dL (60-115); Potassium 4.6 mmol/L (3.3-5.1); Sodium 146 mmol/L (135-145)
--- NOTE | 2021-12-17 12:35 | ED_ITS ---
HPI - Back Pain/Injury General Chief Complaint: Fall Stated Complaint: LT HIP PAIN S/P FALL,-HS,-LOC Time Seen by Provider: 12/17/21 11:18 Source: patient and family Mode of arrival: EMS Limitations: no limitations History of Present Illness HPI Narrative: Patient no significant back problems was taking shower sudden she noticed pain on the left flank area pain was very severe , patient slumped down , no nausea n o vomiting no abdominal pain no urinary patient ambulates in Related Data Home Medications Medication Instructions Recorded Confirmed magnesium oxide 400 mg (241.3 mg 400 mg PO BID 06/17/20 09/28/21 magnesium) tablet rosuvastatin 40 mg tablet 40 mg PO BEDTIME 06/17/20 09/28/21 aspirin 81 mg tablet 81 mg PO BID PRN Pain 05/25/21 09/28/21 Previous Rx's Medication Instructions Recorded omeprazole 20 mg capsule,delayed 20 mg PO DAILY 30 days #30 caps 05/06/20 release cyclobenzaprine 10 mg tablet 10 mg PO Q8H #20 tabs 12/17/21 tramadol 50 mg tablet 50 mg PO Q6H PRN pain #20 tabs 12/17/21 Allergies Allergy/AdvReac Type Severity Reaction Status Date / Time Iodinated Contrast Media Allergy Unconscious Verified 09/28/21 09:56 [IV Contrast Dye] Review of Systems Review of Systems: Yes all other systems are reviewed and are negative [facility] Past Medical History Medical History Multinodular thyroid Vitamin D deficiency Surgical History H/O blepharoplasty History of colonoscopy History of esophagogastroduodenoscopy (EGD) Family History Family History Father Leukemia Mother Colon cancer Sister Diabetes Hypertension Social History Social History Household Members: Children Housing: Apartment Are you a primary vision care associate to a significant other at home: No Do you presently have visiting nurse or other home services: No Alcohol intake: current Alcohol intake frequency: does not drink Patient Tobacco Use Status: Never used Tobacco Smoked in Last 30 Days: No Use of substances other than those prescribed or required for medical reasons: No Advance Directives: No Advance Directives Information Provided: Yes service: No Current occupational status: employed Physical Exam Vital Signs: Vital Signs: Last Vital Signs Temp 97.8 F 12/17/21 10:39 Pulse 62 12/17/21 13:55 Resp 16 12/17/21 13:55 BP 108/60 12/17/21 13:55 Pulse Ox 97 12/17/21 13:55 O2 Del Method 12/17/21 13:55 BMI result Body Mass Index 21.9 Appearance: Alert. Oriented X3. No acute distress. Eyes: PERRLA, No Nystagmus ENT: Pharynx normal. Oral Mucosa moist Neck: Normal inspection. Neck supple. CVS: Normal heart rate and rhythm. Pulses normal. Respiratory: No respiratory distress. Equal air entry bilateral, no wheezing/rales/rhonchi Abdomen: Soft and nontender. Bowel sounds are present, no mass palpable,l flank tenderness no midline spinal tender Skin: Skin warm and dry. Normal skin color. Normal skin turgor. Extremities: No lower extremity edema. No calf tenderness Neuro: Oriented X 3. No motor deficit. MDM - Back Pain/Injury MDM Narrative Medical decision making narrative: Patient has stable labs CT scan negative for acute likely musculoskeletal pain Lab Data Attestation: I reviewed the patient's lab results. Result diagrams: 12/17/21 11:28 12/17/21 12:15 Labs: Lab Results 12/17/21 12/17/21 12/17/21 Range/Units 11:28 12:15 12:45 WBC 6.3 (4.8-10.8) X10*3/uL RBC 4.92 (4.20-5.50) X10*6/uL Hgb 11.5 L (12.0-16.0) g/dl Hct 36.1 L (37.0-47.0) % MCV 73.4 L (80.0-98.0) fL MCH 23.4 L (27.0-33.0) pg MCHC 31.9 (31.0-35.0) g/dl RDW 14.0 (11.0-16.0) % Plt Count 237 (160-400) X10*3/uL MPV 10.9 (9.4-12.3) fL Immature Gran % (Auto) 0.2 (0.0-0.4) % Neut % (Auto) 55.1 (45-73) % Lymph % (Auto) 34.3 (20-40) % Johnson % (Auto) 7.7 (2-11) % Eos % (Auto) 2.2 (0-4) % Baso % (Auto) 0.5 (0-2) % Lymph # (Auto) 2.2 (1.2-4.9) X10*3/uL Johnson # (Auto) 0.5 (0.1-1.2) X10*3/uL Eos # (Auto) 0.1 (0.0-0.4) X10*3/uL Baso # (Auto) 0.0 (0.0-0.2) X10*3/uL Abs Immat Gran (auto) 0.01 (0.00-0.03) X10*3/uL Absolute Neuts (auto) 3.5 (2.0-8.3) x10*3/uL Absolute Nucleated RBC 0.000 (0.0-0.012) X10*3/uL Nucleated RBC % (auto) 0.0 (0.0-0.2) /100WBC Sodium 146 H (135-145) mmol/L Potassium 4.6 (3.3-5.1) mmol/L Chloride 109 H (96-108) mmol/L Carbon Dioxide 23 (22-29) mmol/L Anion Gap 19 (12-20) BUN 20 H (9-16) mg/dL Creatinine 0.75 (0.5-1.4) mg/dL Estim Creat Clear Calc 61.5 Estimated GFR > 60 Random Glucose 93 (60-115) mg/dL Calcium 9.7 (8.4-10.2) mg/dL Urine Color Yellow Urine Appearance Clear Urine pH 6.5 (5.0-9.0) Ur Specific [place] <= 1.005 (1.005-1.025) Urine Protein Negative (Neg-Trace) mg/dL Urine Glucose (UA) Negative (Negative) mg/dL Urine Ketones Trace (Negative) mg/dL Urine Blood Small (1+) H (Negative) Urine Nitrite Negative (Negative) Ur Leukocyte Esterase Negative (Negative) Urine RBC 0-2 (0-2) /HPF Urine WBC 0-5 (0-5) /HPF Ur Squamous Epith Cells 0-2 (0-2) /HPF Urine Bacteria None Seen (None Seen) Hyaline Casts 0-2 (0-2) /LPF Discharge Plan Discharge Clinical Impression: Lumbosacral strain Patient Disposition: Home, Self-Care Instructions: Acute Low Back Pain (ED) Additional Instructions: Rest at home Apply ice Pain medication and muscle relaxant as prescribed Prescriptions: New cyclobenzaprine 10 mg tablet 10 mg PO Q8H Qty: 20 0RF tramadol 50 mg tablet 50 mg PO Q6H PRN (Reason: pain) Qty: 20 0RF No Action aspirin 81 mg Tablet 81 mg PO BID PRN (Reason: Pain) rosuvastatin 40 mg tablet 40 mg PO BEDTIME magnesium oxide 400 mg (241.3 mg magnesium) tablet 400 mg PO BID omeprazole 20 mg capsule,delayed release(DR/EC) 20 mg PO DAILY 30 Days Qty: 30 6RF Interventions: ED Discharge Assessment Last Done: 12/17/21 15:32 Discharge Date/Time: 12/17/21 15:33
[2021-12-17 12:53] LABS: Appearance Urine Clear; Color Urine Yellow; Glucose Urine UA Negative (Negative); Leukocyte Esterase Urine Negative (Negative); Nitrite Urine Negative (Negative); PH 6.5 (5.0-9.0); Specific Gravity - Urine <= 1.005 (1.005-1.025); UMIC TRIGGER UACC YES; Urine Blood Small (1+) (Negative); Urine Ketones Trace mg/dL (Negative); Urine Protein Negative (Neg-Trace)
[2021-12-17 13:14] LABS: Bacteria Urine None Seen (None Seen); Hyaline Casts Urine 0-2 /LPF (0-2); RBC Urine 0-2 /HPF (0-2); Squamous Epithelial Cell Urine 0-2 /HPF (0-2); WBC Urine 0-5 /HPF (0-5)
[2021-12-17] MEDS: 0.9 % Sodium Chloride 1,000 ML 999 ML IV (13:52)
[2021-12-17 13:55] VITALS: BP 108/60; PULSE 62; RESP 16; O2SAT 97
== END 2021-12-17 15:33 | disposition home or self-care (01) ==
PROVIDERS: Emergency Provider Internal Medicine
DX: M54.50 Low back pain, unspecified (principal); R10.2 Pelvic and perineal pain; Z79.899 Other long term (current) drug therapy
CPT/HCPCS: 36415; 74176; 80048; 81001; 85025; 96374; 96375; 99284; J1885; J2270; J2405

== ENCOUNTER 2022-03-01 07:40 | Outpatient (REF) | payer OTHER, SELFPAY ==
[2022-03-01 10:38] LABS: MANUAL DIFF FLAG NO
[2022-03-01 10:48] LABS: Basophils Percent Auto 0.4 % (0-2); Eosinophils Absolute Auto 0.1 X10*3/uL (0.0-0.4); Eosinophils Percent Auto 1.2 % (0-4); Hematocrit 34.8 % (37.0-47.0); Hemoglobin 10.7 g/dl (12.0-16.0); Imm Gran Abs Auto 0.01 X10*3/uL (0.00-0.03); Imm Gran Pct Auto 0.2 % (0.0-0.4); Lymphocytes Absolute Auto 2.4 X10*3/uL (1.2-4.9); Lymphocytes Percent Auto 45.8 % (20-40); Mean Corpuscular HGB Conc 30.7 g/dl (31.0-35.0); Mean Corpuscular Volume 74.7 fL (80.0-98.0); Mean Platelet Volume 11.1 fL (9.4-12.3); Monocytes Absolute Auto 0.5 X10*3/uL (0.1-1.2); Monocytes Percent Auto 10.1 % (2-11); Neutrophils Absolute Auto 2.2 x10*3/uL (2.0-8.3); Neutrophils Percent Auto 42.3 % (45-73); Platelet Count 257 X10*3/uL (160-400); Red Blood Count 4.66 X10*6/uL (4.20-5.50); Red Cell Distribution Width 14.6 % (11.0-16.0); White Blood Count 5.1 X10*3/uL (4.8-10.8)
[2022-03-01 11:43] LABS: Alanine Aminotransferase 26 U/L (0-31); Albumin Level 4.5 g/dL (3.5-5.0); Alkaline Phosphatase 54 U/L (39-117); Anion Gap 12 (12-20); Aspartate Amino Transferase 23 U/L (5-31); Bilirubin Total 0.6 mg/dL (0.0-1.0); Blood Urea Nitrogen 16 mg/dL (9-16); Calcium 9.5 mg/dL (8.4-10.2); Carbon Dioxide 27 mmol/L (22-29); Chloride 107 mmol/L (96-108); Cholesterol 302 mg/dL; Estimated Glomerular Filt Rate > 60; Glucose Random 80 mg/dL (60-115); HDL Cholesterol 61 mg/dL; LDL Cholesterol Calculated 225 mg/dl; Potassium 4.3 mmol/L (3.3-5.1); Sodium 142 mmol/L (135-145); Total Protein 7.4 g/dL (6.5-8.0); Triglycerides 81 mg/dL
== END 2022-03-01 07:41 | disposition home or self-care (01) ==
LOC: HO.10HDL 07:40
PROVIDERS: Visit Provider Internal Medicine
DX: D59.10 Autoimmune hemolytic anemia, unspecified (principal); E78.00 Pure hypercholesterolemia, unspecified; H53.30 Unspecified disorder of binocular vision; R74.01 Elevation of levels of liver transaminase levels
CPT/HCPCS: 36415; 80053; 80061; 85025; 87086

== ENCOUNTER 2022-03-01 14:00 | Outpatient (RCR) | payer OTHER, SELFPAY ==
--- NOTE | 2022-01-24 08:59 | MHC.PT.EP ---
[facility] [place] Office [place] Office [place] Office [address] [phone] F: [phone] F: [phone] F: [phone] F: [phone] Physical Therapy Plan of Care Date of Evaluation: Date of Surgery: Diagnosis: lumbar radiculopathy Assessment: Patient is a pleasant 61 y.o female who presents to PT with dx of LBP with radiculopathy. She presents as sprain/strain L low with mechanical dysfunction back causing compensations that leads to radicular sxs, does not test as disc involvement. She presents with weakness in hips and core, decreased lumbar AROM, pain and difficulty with walking, bending, working, stair use. She will benefit from course of skilled PT to restore to full independent activities. Frequency and Duration: The patient will be seen 1-2/week for 4 weeks Short Term Goals: 2 weeks Patient presents with decreased LBP 4/10. Patient demonstrates independence with HEP to self manage symptoms. Mcc Goals: 4 weeks Patient presents with increased lumbar flexion 90 degrees to be able to perform ADLs without difficulty. Patient presents with increased bilateral knee flexion 5/5 without pain to be able to utilize reciprocal stairs. Treatment Plan: Modalities to reduce pain, spasms and effusion. Manual therapy to restore motion and function. Therapeutic exercise to improve strength and flexibility. Neuromuscular re-education for posture and balance. Therapeutic activities to return to functional activities of daily living. Electronically signed by: Dennis Buenrostro, PT, DPT Please sign and return to therapist. Thank you for your referral.
--- NOTE | 2022-04-04 13:39 | MHC.PT.DC ---
[facility] [place] Office [place] Office [place] Office [address] Lucy Singh [address] [phone] F: [phone] F: [phone] F: [phone] F: [phone] Physical Therapy Discharge Report Diagnosis: lumbar radiculopathy Date of Surgery: Date of Evaluation: 01/23/22 Date of Discharge: 04/04/22 Treatments to Date: 5 Cancellations to Date: 2 No Shows to Date: Discharge Status: Independent with HEP Patient Elected to Stop Discharge Summary: Patient ceased attending PT on her own accord as of 03/01/22. And is therefore discharged from PT at this time. Electronically signed by: Dennis Buenrostro, PT, DPT Please sign and return to therapist. Thank you for your referral.
== END 2022-04-04 13:40 | disposition home or self-care (01) ==
LOC: HO.PT 14:00
PROVIDERS: PCP Internal Medicine; Visit Provider Internal Medicine
DX: M54.16 Radiculopathy, lumbar region (principal)
CPT/HCPCS: 97110; 97140; 97161

== ENCOUNTER 2022-06-25 08:59 | Outpatient (REF) | payer OTHER, SELFPAY ==
[2022-06-25 10:53] LABS: Cholesterol 156 mg/dL; HDL Cholesterol 64 mg/dL; LDL Cholesterol Calculated 81 mg/dl; Triglycerides 56 mg/dL
== END 2022-06-25 09:00 | disposition home or self-care (01) ==
LOC: HO.10HDL 08:59
PROVIDERS: Visit Provider Internal Medicine
DX: D64.89 Other specified anemias (principal); E78.01 Familial hypercholesterolemia; M54.50 Low back pain, unspecified
CPT/HCPCS: 36415; 80061

== ENCOUNTER 2022-09-13 08:34 | Outpatient (REF) | payer OTHER, SELFPAY ==
--- NOTE | ~2022-09-13 | MM_ITS ---
EXAMINATION: BONE DENSITOMETRY CLINICAL INDICATION: Menopause. COMPARISON: None (current study represents initial baseline exam). TECHNIQUE: Using a [employer] DXA System (software version: 13.1) manufactured by [employer], dual-energy x-ray absorptiometry was performed of the lumbar spine and left hip. The images are of good technical quality. Summary results are attached. FINDINGS: AP SPINE L1-L4: BMD 0.898 g/cm2, Z-score -0.5, T-score -2.4, osteopenia. LEFT FEMUR, NECK: BMD 0.705 g/cm2, Z-score -0.8, T-score -2.4, osteopenia. LEFT FEMUR, TOTAL: BMD 0.785 g/cm2, Z-score -0.4, T-score -1.8, osteopenia. IDENTIFIED RISK FACTORS: Menopause. HISTORY OF FRACTURE: None listed. MEDICATIONS: Vitamin D. MM/XR DEXA axial skeleton IMPRESSION: 1. DIAGNOSIS: Osteopenia based on the lowest T-score value of -2.4 in the lumbar spine and femur neck applying World Health Organization criteria. 2. 10-YEAR FRACTURE RISK PREDICTION, FRAX: Major osteoporotic fracture (clinical spine, forearm, hip or shoulder) 6.1%. Hip fracture 1.2%. 3. Treatment Recommendations: NOF guidelines recommend consideration for treatment in postmenopausal women and men age 50 and older presenting with the following: -A hip or vertebral (clinical or morphometric) fracture. -T-score less than or equal to -2.5 at the femoral neck or spine after appropriate evaluation to exclude secondary causes. -Low bone mass at the hip or spine and a 10-year fracture probability by FRAX of greater than or equal to 3% for hip fracture or greater than or equal to 20% for major osteoporotic fracture based on the [place] adapted WHO algorithm. 4. Other Recommendations: All treatment decisions require clinical judgment and consideration of individual patient factors, including patient preferences, comorbidities, previous drug use, risk factors not captured in the FRAX model (e.g. frailty, falls, vitamin D deficiency, increased bone turnover, interval significant decline in bone density) and possible under or overestimation of fracture risk by FRAX. Additional medical evaluation for secondary cause of low bone mineral density may be appropriate. FUTURE SCAN RECOMMENDATION: People with diagnosed cases of osteoporosis or at high risk for fracture should have regular bone mineral density tests. For patients eligible for Medicare, routine testing is allowed once every 2 years. The testing frequency can be increased to one year for patients who have rapidly progressing disease, those who are receiving or discontinuing medical therapy to restore bone mass, or have additional risk factors.
--- NOTE | ~2022-09-13 | MM_ITS ---
EXAMINATION: MM SCREENING DIGITAL BREAST TOMOSYNTHESIS, BILATERAL CLINICAL INFORMATION: Screening. Asymptomatic. The lifetime risk of breast cancer based on the Tyrer-Cuzick Model is 6%. COMPARISON: Mammography: 08/09/2018, 07/06/2017, 05/25/2016 TECHNIQUE: Digital breast tomosynthesis is performed in both the craniocaudal and mediolateral oblique views along with computer-aided detection (CAD). Synthesized 2D images are generated from the tomosynthesis. Additional right MLO view is provided. FINDINGS: The breasts are heterogeneously dense, which may obscure small masses (ACR BI-RADS breast composition Category c). Fibronodular parenchymal pattern is similar to prior studies and there is no developing density or architectural abnormality. There are no significant masses, abnormal calcifications, or other abnormalities. The axilla and skin contours are unremarkable. No significant changes. MM/MM tomosynthesis screening BI IMPRESSION: No mammographic evidence of malignancy. ASSESSMENT: BI-RADS 1: Negative RECOMMENDATION: Routine annual mammography screening. This patient's information was entered into a reminder system with a target due date for their next mammogram.
== END 2022-09-13 08:35 | disposition home or self-care (01) ==
LOC: HO.MAMMO 08:34
PROVIDERS: PCP Internal Medicine; Visit Provider Obstetrics & Gynecology Female Pelvic Medicine and Reconstructive Surgery
DX: Z12.31 Encounter for screening mammogram for malignant neoplasm of breast (principal); Z13.820 Encounter for screening for osteoporosis; N95.1 Menopausal and female climacteric states
CPT/HCPCS: 77063; 77067; 77080

== ENCOUNTER 2022-12-25 08:59 | Outpatient (REF) | payer OTHER, SELFPAY ==
[2022-12-25 09:42] LABS: Cholesterol 182 mg/dL (<200); HDL Cholesterol 58 mg/dL (>40); LDL Cholesterol Calculated 108 mg/dL (<100); Triglycerides 82 mg/dL (<150)
[2022-12-25 09:57] LABS: Thyroid Stimulating Hormone 2.29 uIU/mL (0.32-4.0)
== END 2022-12-25 09:00 | disposition home or self-care (01) ==
LOC: HO.LAB 08:59
PROVIDERS: PCP Internal Medicine; Visit Provider Internal Medicine
DX: Z00.00 Encounter for general adult medical examination without abnormal findings (principal); D64.89 Other specified anemias; E04.2 Nontoxic multinodular goiter; E78.01 Familial hypercholesterolemia; R21 Rash and other nonspecific skin eruption
CPT/HCPCS: 36415; 80061; 84443

== ENCOUNTER 2023-01-08 18:28 | Emergency (ER) | payer OTHER, SELFPAY ==
[2023-01-08 18:38] VITALS: BP 142/70; PULSE 60; O2SAT 98
[2023-01-08 18:45] VITALS: BP 135/69; PULSE 64; RESP 18; TEMP 36.8; O2SAT 99; BMI 22.6
--- NOTE | 2023-01-08 18:59 | ED_ITS ---
HPI - General Adult General Chief complaint: General Medical Stated complaint: DIZZINESS, WEAKNESS, PALPITATIONS Time Seen by Provider: 01/08/23 18:56 Source: patient Mode of arrival: ambulatory Limitations: no limitations History of Present Illness HPI narrative: Patient with history of vertigo anemia was feeling good otherwise noticed nonspecific dizziness since patient started on Lopressor 50 mg daily for new diagnosis of hypertension patient feels heavy felt like passing out no vertiginous feeling nausea no urinary complaint of abdominal pain no chest pain no shortness of breath no cough no palpitations no fever no chills Related Data Home Medications Medication Instructions Recorded Confirmed magnesium oxide 400 mg (241.3 mg 400 mg PO BID 06/17/20 07/19/22 magnesium) tablet rosuvastatin 40 mg tablet 40 mg PO BEDTIME 06/17/20 07/19/22 aspirin 81 mg tablet 81 mg PO BID PRN Pain 05/25/21 07/19/22 Previous Rx's Medication Instructions Recorded omeprazole 20 mg capsule,delayed 20 mg PO DAILY 30 days #30 caps 05/06/20 release tramadol 50 mg tablet 50 mg PO Q6H PRN pain #20 tabs 12/17/21 Allergies Allergy/AdvReac Type Severity Reaction Status Date / Time Iodinated Contrast Media Allergy Unconscious Verified 01/08/23 18:50 [IV Contrast Dye] Review of Systems 2 Review of Systems: Yes all other systems are reviewed and are negative [facility] Past Medical History Medical History Vitamin D deficiency Multinodular thyroid Surgical History H/O blepharoplasty History of esophagogastroduodenoscopy (EGD) History of colonoscopy Family History Family History Father Leukemia Mother Colon cancer Sister Diabetes Hypertension Social History Social History Household Members: Children Housing: Apartment Are you a primary furnace caretaker to a significant other at home: No Do you presently have visiting nurse or other home services: No Alcohol intake: current Alcohol intake frequency: does not drink Patient Tobacco Use Status: Never used Tobacco Smoked in Last 30 Days: No Use of substances other than those prescribed or required for medical reasons: No Advance Directives: No Advance Directives Information Provided: No Patient : No service: No Current occupational status: employed Physical Exam ED Vital Signs: Vital Signs - 24 hr 01/08/23 18:45 01/08/23 21:12 Temperature 98.2 F 98.4 F Pulse Rate 64 63 Respiratory Rate 18 20 Blood Pressure 135/69 132/59 L Pulse Oximetry 99 98 Oxygen Delivery Method Room Air Room Air BMI result Body Mass Index 22.6 Appearance: Alert. Oriented X3. No acute distress. Eyes: PERRLA, No Nystagmus ENT: Pharynx normal. Oral Mucosa moist Neck: Normal inspection. Neck supple. CVS: Normal heart rate and rhythm. Pulses normal. Respiratory: No respiratory distress. Equal air entry bilateral, no wheezing/rales/rhonchi Abdomen: Soft and nontender. Bowel sounds are present, no mass palpable, no CVA tenderness Skin: Skin warm and dry. Normal skin color. Normal skin turgor. Extremities: No lower extremity edema. No calf tenderness Neuro: Oriented X 3. No motor deficit. No sensory deficit.No cerebellar signs , cranial nerves II-XII intact Medical Decision Making Medical Decision Making MDM Narrative: Patient chronic anemia came for nonspecific dizziness after starting Lopressor likely the cause blood pressure stable, workup is negative orthostatics are stable will discharge patient home advised drink plenty of fluids Differential Diagnosis Differential Diagnoses: The differential diagnosis associated with the presentation includes Vertigo/dizziness/viral syndrome/UTI Lab Data [facility] Lab Attestation statement: I reviewed the patient's lab results. 01/08/23 20:17 01/08/23 20:17 Labs: Lab Results 01/08/23 01/08/23 Range/Units 20:17 21:02 WBC 6.0 (4.8-10.8) X10*3/uL RBC 4.61 (4.20-5.50) X10*6/uL Hgb 10.7 L (12.0-16.0) g/dl Hct 34.3 L (37.0-47.0) % MCV 74.4 L (80.0-98.0) fL MCH 23.2 L (27.0-33.0) pg MCHC 31.2 (31.0-35.0) g/dl RDW 14.2 (11.0-16.0) % Plt Count 230 (160-400) X10*3/uL MPV 10.7 (9.4-12.3) fL Immature Gran % (Auto) 0.2 (0.0-0.4) % Neut % (Auto) 55.4 (45-73) % Lymph % (Auto) 32.1 (20-40) % [place] % (Auto) 10.8 (2-11) % Eos % (Auto) 1.2 (0-4) % Baso % (Auto) 0.3 (0-2) % Lymph # (Auto) 1.9 (1.2-4.9) X10*3/uL [place] # (Auto) 0.6 (0.1-1.2) X10*3/uL Eos # (Auto) 0.1 (0.0-0.4) X10*3/uL Baso # (Auto) 0.0 (0.0-0.2) X10*3/uL Abs Immat Gran (auto) 0.01 (0.00-0.03) X10*3/uL Absolute Neuts (auto) 3.3 (2.0-8.3) x10*3/uL Absolute Nucleated RBC 0.000 (0.0-0.012) X10*3/uL Nucleated RBC % (auto) 0.0 (0.0-0.2) /100WBC Sodium 144 (135-145) mmol/L Potassium 4.0 (3.3-5.1) mmol/L Chloride 108 (96-108) mmol/L Carbon Dioxide 28 (22-29) mmol/L Anion Gap 12 (12-20) BUN 11 (9-16) mg/dL Creatinine 0.92 (0.5-1.4) mg/dL Estim Creat Clear Calc 49.5 Estimated GFR > 60 Random Glucose 70 (60-115) mg/dL Calcium 9.7 (8.4-10.2) mg/dL Magnesium 2.4 (1.6-2.6) mg/dL Total Bilirubin 0.3 (0.0-1.0) mg/dL AST 26 (5-31) U/L ALT 26 (0-31) U/L Alkaline Phosphatase 61 (39-117) U/L Troponin I High Sens < 2.7 (<3.5-17.0) ng/L Total Protein 8.0 (6.5-8.0) g/dL Albumin 4.5 (3.5-5.0) g/dL Urine Color Yellow Urine Appearance Clear Urine pH 7.5 (5.0-9.0) Ur Specific [place] <= 1.005 (1.005-1.025) Urine Protein Negative (Neg-Trace) mg/dL Urine Glucose (UA) Negative (Negative) mg/dL Urine Ketones Negative (Negative) mg/dL Urine Blood Trace H (Negative) Urine Nitrite Negative (Negative) Ur Leukocyte Esterase Trace H (Negative) Urine RBC 0-2 (0-2) /HPF Urine WBC 0-5 (0-5) /HPF Ur Squamous Epith Cells 0-2 (0-2) /HPF Urine Bacteria None Seen (None Seen) Hyaline Casts 0-2 (0-2) /LPF COVID-19 (JOAO) Negative (Negative) COVID-19 Clin Com See Note Independent Interpretation I performed an independent interpretation of an: EKG Interpretation: Of sinus rhythm heart rate is 80 beats per minute number interval normal axis no acute ST-T changes no acute ischemia Discharge Plan Discharge Clinical Impression: Weakness Patient Disposition: Home, Self-Care Instructions: Weakness (ED) Additional Instructions: Drink plenty of fluids cause of your weakness is not very clear Take your medications and follow-up with PCP Beber mucho l?quido La causa de tu debilidad no est? muy feli. Larson toñito medicamentos y ovidio seguimiento con buchanan PCP. Prescriptions: No Action aspirin 81 mg Tablet 81 mg PO BID PRN (Reason: Pain) tramadol 50 mg tablet 50 mg PO Q6H PRN (Reason: pain) Qty: 20 0RF rosuvastatin 40 mg tablet 40 mg PO BEDTIME magnesium oxide 400 mg (241.3 mg magnesium) tablet 400 mg PO BID omeprazole 20 mg capsule,delayed release(DR/EC) 20 mg PO DAILY 30 Days Qty: 30 6RF Interventions: ED Discharge Assessment Last Done: 01/08/23 22:39 Discharge Date/Time: 01/08/23 22:40 Print Language: Lebanese
--- NOTE | 2023-01-08 19:22 | ECG_ITS ---
Test Reason : DIZZINESS Blood Pressure : / mmHG Vent. Rate : 063 BPM Atrial Rate : 063 BPM P-R Int : 126 ms QRS Dur : 082 ms QT Int : 402 ms P-R-T Axes : 073 072 057 degrees QTc Int : 411 ms Normal sinus rhythm Normal ECG No previous ECGs available Referred By: Sandoval Benítez Electronically Signed By:MARQUITA GIL MD
[2023-01-08 20:24] LABS: MANUAL DIFF FLAG NO
[2023-01-08 20:30] LABS: Appearance Urine Clear; Color Urine Yellow; Glucose Urine UA Negative (Negative); Leukocyte Esterase Urine Trace (Negative); Nitrite Urine Negative (Negative); PH 7.5 (5.0-9.0); Specific Gravity - Urine <= 1.005 (1.005-1.025); UMIC TRIGGER UACC YES; Urine Blood Trace (Negative); Urine Ketones Negative (Negative); Urine Protein Negative (Neg-Trace)
[2023-01-08 20:36] LABS: Basophils Percent Auto 0.3 % (0-2); Eosinophils Absolute Auto 0.1 X10*3/uL (0.0-0.4); Eosinophils Percent Auto 1.2 % (0-4); Hematocrit 34.3 % (37.0-47.0); Hemoglobin 10.7 g/dl (12.0-16.0); Imm Gran Abs Auto 0.01 X10*3/uL (0.00-0.03); Imm Gran Pct Auto 0.2 % (0.0-0.4); Lymphocytes Absolute Auto 1.9 X10*3/uL (1.2-4.9); Lymphocytes Percent Auto 32.1 % (20-40); Mean Corpuscular HGB Conc 31.2 g/dl (31.0-35.0); Mean Corpuscular Hemoglobin 23.2 pg (27.0-33.0); Mean Corpuscular Volume 74.4 fL (80.0-98.0); Mean Platelet Volume 10.7 fL (9.4-12.3); Monocytes Absolute Auto 0.6 X10*3/uL (0.1-1.2); Monocytes Percent Auto 10.8 % (2-11); Neutrophils Absolute Auto 3.3 x10*3/uL (2.0-8.3); Neutrophils Percent Auto 55.4 % (45-73); Platelet Count 230 X10*3/uL (160-400); Red Blood Count 4.61 X10*6/uL (4.20-5.50); Red Cell Distribution Width 14.2 % (11.0-16.0)
[2023-01-08 20:41] LABS: Bacteria Urine None Seen (None Seen); Hyaline Casts Urine 0-2 /LPF (0-2); RBC Urine 0-2 /HPF (0-2); Squamous Epithelial Cell Urine 0-2 /HPF (0-2); WBC Urine 0-5 /HPF (0-5)
[2023-01-08 20:46] LABS: Troponin-I High Sensitivity < 2.7 ng/L (<3.5-17.0)
[2023-01-08 20:48] LABS: Alanine Aminotransferase 26 U/L (0-31); Albumin Level 4.5 g/dL (3.5-5.0); Alkaline Phosphatase 61 U/L (39-117); Anion Gap 12 (12-20); Aspartate Amino Transferase 26 U/L (5-31); Bilirubin Total 0.3 mg/dL (0.0-1.0); Blood Urea Nitrogen 11 mg/dL (9-16); Calcium 9.7 mg/dL (8.4-10.2); Carbon Dioxide 28 mmol/L (22-29); Chloride 108 mmol/L (96-108); Creatinine Clr Calc Pharmacy 49.5; Estimated Glomerular Filt Rate > 60; Glucose Random 70 mg/dL (60-115); Magnesium 2.4 mg/dL (1.6-2.6); Sodium 144 mmol/L (135-145)
[2023-01-08 21:12] VITALS: BP 132/59; PULSE 63; RESP 20; TEMP 36.9; O2SAT 98
[2023-01-08 21:21] LABS: COVID-19 Test Negative (Negative); IDNOW Serial# BCCEAD1C
--- NOTE | 2023-01-08 21:34 | PC.NURSE ---
pt oob with 1 assist, pt c/o dizziness, gait steady, tolerated well, will cont to monitor
== END 2023-01-08 22:40 | disposition home or self-care (01) ==
PROVIDERS: Emergency Provider Internal Medicine; PCP Internal Medicine
DX: R53.1 Weakness (principal); I10 Essential (primary) hypertension; Z79.82 Long term (current) use of aspirin; Z79.899 Other long term (current) drug therapy; Z11.52 Encounter for screening for COVID-19
CPT/HCPCS: 36415; 80053; 81001; 83735; 84484; 85025; 87635; 93005; 99283; 99284

== ENCOUNTER 2023-01-22 08:27 | Outpatient (AMB) | payer OTHER, SELFPAY ==
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
[2023-01-22 08:39] VITALS: BP 145/63; PULSE 80; BMI 21.0
== END 2023-01-22 09:26 | disposition home or self-care (01) ==
PROVIDERS: PCP Internal Medicine; Visit Provider Nurse Practitioner
DX: R13.10 Dysphagia, unspecified (principal); D50.9 Iron deficiency anemia, unspecified; Z80.0 Family history of malignant neoplasm of digestive organs; K21.9 Gastro-esophageal reflux disease without esophagitis; K59.00 Constipation, unspecified; R00.2 Palpitations
CPT/HCPCS: 99214

== ENCOUNTER → 2023-01-22 08:27 | Outpatient (BNVA) | payer OTHER, SELFPAY | PROVIDERS: PCP Internal Medicine; Visit Provider Nurse Practitioner | DX: R13.10 Dysphagia, unspecified (principal); K21.9 Gastro-esophageal reflux disease without esophagitis; K59.00 Constipation, unspecified; R00.2 Palpitations; D50.9 Iron deficiency anemia, unspecified; E55.9 Vitamin D deficiency, unspecified | CPT/HCPCS: 99212 ==

== ENCOUNTER 2023-02-05 08:27 | Outpatient (REF) | payer OTHER, SELFPAY ==
--- NOTE | ~2023-02-05 | CT_ITS ---
EXAMINATION: CT ABDOMEN AND PELVIS WITHOUT CONTRAST CLINICAL INFORMATION: Umbilical hernia COMPARISON: None available. TECHNIQUE: Multidetector volumetric imaging was performed from the superior aspect of the liver through the pubic symphysis. Sagittal and coronal reformatted images were obtained on the technologist's workstation. This CT examination was performed using dose optimization techniques as appropriate, variously including the following: *Automated exposure control *Adjustment of mA and/or kV according to patient size (this includes techniques or standardized protocols for targeted exams where dose is matched to indication/reason for exam; i.e. extremities or head) *Use of iterative reconstruction technique DLP: 266 mGy-cm FINDINGS: LUNG BASES: The visualized lung bases are unremarkable. Nonenlarged heart. No pericardial effusion. LIVER, GALLBLADDER, AND BILIARY TREE: The liver is normal in size, shape, and attenuation. No focal hepatic lesion or biliary ductal dilatation is present. The gallbladder is unremarkable with no evidence of radiopaque gallstones, gallbladder wall thickening, or obvious pericholecystic inflammatory changes. PANCREAS: Unremarkable. SPLEEN: Unremarkable. ADRENAL GLANDS: Unremarkable. KIDNEYS AND URETERS: The kidneys are normal in size, shape, and attenuation. No hydronephrosis or hydroureter. Punctate bilateral renal calculi. No perinephric stranding. BLADDER: Unremarkable. GASTROINTESTINAL TRACT: Stomach is not ideally distended. Nonobstructive bowel pattern. Appendix not seen. Moderately severe to severe fecal retention. ABDOMINAL WALL: Small fat filled umbilical hernia. No bowel contents. LYMPH NODES: Normal. VASCULAR: Atherosclerotic calcifications nonaneurysmal aorta. The inferior vena cava are normal caliber. PELVIC VISCERA: Unremarkable. Pelvic phleboliths. OSSEOUS STRUCTURES: Unremarkable. CT/CT abdomen pelvis wo IV con IMPRESSION: Fat filled umbilical hernia with no bowel contents. Punctate bilateral nonobstructing renal calculi. Fleischner guidelines were followed.
[2023-02-05] MEDS: Barium Sulfate Oral (Vanilla) 450 ML ORAL.SUSP 900 ML PO (11:09)
== END 2023-02-05 08:28 | disposition home or self-care (01) ==
LOC: HO.CT 08:27
PROVIDERS: PCP Internal Medicine; Visit Provider Internal Medicine Medical Oncology
DX: K42.9 Umbilical hernia without obstruction or gangrene (principal)
CPT/HCPCS: 74176

== ENCOUNTER 2023-02-27 10:04 | Outpatient (AMB) | payer OTHER, SELFPAY ==
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
[2023-02-27 10:21] VITALS: BP 145/65; PULSE 74; BMI 20.6
== END 2023-02-27 11:13 | disposition home or self-care (01) ==
PROVIDERS: PCP Internal Medicine; Visit Provider Nurse Practitioner
DX: K21.9 Gastro-esophageal reflux disease without esophagitis (principal); K59.00 Constipation, unspecified; R10.12 Left upper quadrant pain; R13.10 Dysphagia, unspecified
CPT/HCPCS: 99214

== ENCOUNTER → 2023-02-27 10:04 | Outpatient (BNVA) | payer OTHER, SELFPAY | PROVIDERS: PCP Internal Medicine; Visit Provider Nurse Practitioner | DX: K21.9 Gastro-esophageal reflux disease without esophagitis (principal); K59.00 Constipation, unspecified; R10.12 Left upper quadrant pain; R13.10 Dysphagia, unspecified | CPT/HCPCS: 99212 ==

== ENCOUNTER 2023-04-02 17:38 | Emergency (ER) | payer OTHER, SELFPAY ==
--- NOTE | ~2023-04-02 | CT_ITS ---
EXAMINATION: CT CERVICAL SPINE WITHOUT CONTRAST CLINICAL INFORMATION: Neck pain, trauma. COMPARISON: None available. TECHNIQUE: Multiple helical unenhanced images were acquired through the cervical spine. Multiplanar computer reformatted images were acquired from the dataset in the sagittal and coronal plane. This CT examination was performed using dose optimization techniques as appropriate, variously including the following: *Automated exposure control *Adjustment of mA and/or kV according to patient size (this includes techniques or standardized protocols for targeted exams where dose is matched to indication/reason for exam; i.e. extremities or head) *Use of iterative reconstruction technique DLP: 199 mGy-cm FINDINGS: CT examination of the cervical spine shows no prevertebral soft tissue swelling. Vertebral body height and alignment are maintained. No acute fracture or subluxation is evident. The odontoid process, cervicothoracic and cervical medullary junctions are normal. There are no bone lesions. Review of individual intervertebral levels shows mild degenerative disc disease at C5-C6 with posterior osteophyte and uncovertebral joint hypertrophy CT/CT cervical spine wo IV con IMPRESSION: 1. No acute cervical spine fracture or subluxation. Fleischner guidelines were followed.
--- NOTE | ~2023-04-02 | CT_ITS ---
EXAMINATION: CT HEAD WITHOUT CONTRAST CLINICAL INFORMATION: Head strike, syncope COMPARISON: 09/07/2018 TECHNIQUE: Contiguous axial imaging was performed from the skull base to vertex without intravenous administration of contrast. This CT examination was performed using dose optimization techniques as appropriate, variously including the following: *Automated exposure control *Adjustment of mA and/or kV according to patient size (this includes techniques or standardized protocols for targeted exams where dose is matched to indication/reason for exam; i.e. extremities or head) *Use of iterative reconstruction technique DLP: 545 mGy-cm FINDINGS: The ventricles and sulci are normal in size and configuration. No acute hemorrhage, mass effect or shift is evident. Inman-white differentiation is maintained. In the posterior fossa, the brainstem, cerebellum and fourth ventricle image normally. The orbits and calvarium are intact. The paranasal sinuses and mastoid air cells are well pneumatized and clear. CT/CT head/brain wo IV con IMPRESSION: 1. Unremarkable noncontrast brain CT. No acute hemorrhage, mass effect or shift.
--- NOTE | ~2023-04-02 | XR_ITS ---
EXAMINATION: XR RIBS, LEFT CLINICAL INFORMATION: Left rib pain, status post fall COMPARISON: None available. TECHNIQUE: 3 views of the left ribs were obtained. Chest one view FINDINGS: Chest: Lungs are clear. No consolidation, pneumothorax, or pleural effusion. The cardiomediastinal silhouette and pulmonary vasculature are normal. The bony thorax is unremarkable. Left RIBS: Multiple views of left ribs reveal no acute fracture or bony abnormality.. XR/XR ribs LT min 3V w CXR1V IMPRESSION: 1. Unremarkable chest exam. 2. No visible left rib fractures seen.
--- NOTE | ~2023-04-02 | US_ITS ---
EXAMINATION: US VENOUS ULTRASOUND WITH DOPPLER LOWER EXTREMITY, BILATERAL CLINICAL INFORMATION: Bilateral calf pain COMPARISON: None available. TECHNIQUE: Ultrasound of the deep veins is performed from the hip to the calf with compression sonography and color and pulse Doppler assessment. Spectral analysis with color-flow imaging is performed. FINDINGS: RIGHT: There is normal venous compression and respiratory variation and augmented flow. The visualized common femoral vein, superficial femoral vein, profunda femoral vein, popliteal vein, and the trifurcation region shows no evidence of deep venous thrombosis. There is no significant popliteal fossa cyst. LEFT: There is normal venous compression and respiratory variation and augmented flow. The visualized common femoral vein, superficial femoral vein, profunda femoral vein, popliteal vein, and the trifurcation region shows no evidence of deep venous thrombosis. There is no significant popliteal fossa cyst. US/US venous duplex LE BI IMPRESSION: No DVT demonstrated in the left or right lower extremity.
[2023-04-02 18:27] VITALS: BP 140/70; PULSE 78; O2SAT 98; BMI 22.4
[2023-04-02 18:29] VITALS: BP 133/77; PULSE 84; RESP 16; TEMP 36.8; O2SAT 100
--- NOTE | 2023-04-02 18:29 | ED.GENADULT ---
HPI - General Adult General Chief complaint: Syncope Stated complaint: CHEST PAIN LEG PAIN Time Seen by Provider: 04/02/23 18:29 Source: patient, EMS, RN notes reviewed and air tester Mode of arrival: EMS Limitations: language barrier History of Present Illness HPI narrative: This is a 62-year-old Somali-speaking female, with a history of hypertension, hyperlipidemia, GERD, presenting to the emergency department via EMS after a fall today. Patient states that is she was having increased pain in her legs today and ultimately fell. She fell backwards and struck the posterior aspect of her head. She endorses loss of consciousness, this fall was not witnessed. She approximates loss of consciousness for 2 minutes however there was no family around her. She lifted her legs up on the couch, and called 911. Patient reports that she has chronic bilateral lower extremity pain which she believes is attributed to her for rosuvastatin. She has not told her primary care physician to have this changed. She reports slight headache. She denies any chest pain, shortness of breath, abdominal pain. She does have left-sided rib pain. No other complaints or concerns at this time. MD complaint: Fall Onset (ago): minute(s) Location: head Radiation: non-radiation Relieving factors: none Exacerbating factors: none Associated symptoms: denies other symptoms Treatments prior to arrival: none Related Data Home Medications Medication Instructions Recorded Confirmed rosuvastatin 40 mg tablet 40 mg PO BEDTIME 06/17/20 07/19/22 aspirin 81 mg tablet 81 mg PO BID PRN Pain 05/25/21 07/19/22 diclofenac sodium 75 mg 75 mg PO BID 02/27/23 tablet,delayed release ezetimibe 10 mg tablet 10 mg PO DAILY 02/27/23 fluticasone propionate 50 1 spray intranasal BID 02/27/23 mcg/actuation nasal spray,suspension triamcinolone acetonide 0.5 % appl topical 02/27/23 topical cream Previous Rx's Medication Instructions Recorded tramadol 50 mg tablet 50 mg PO Q6H PRN pain #20 tabs 12/17/21 lisinopril 2.5 mg tablet 2.5 mg PO DAILY #30 tabs 01/22/23 omeprazole 20 mg capsule,delayed 20 mg PO DAILY 30 days #30 caps 01/22/23 release magnesium oxide 400 mg (241.3 mg 800 mg (2 x 400 mg (241.3 mg 12/06/23 magnesium) tablet magnesium)) PO BID #120 tabs Allergies Allergy/AdvReac Type Severity Reaction Status Date / Time Iodinated Contrast Media Allergy Unconscious Verified 04/02/23 18:27 [IV Contrast Dye] Review of Systems Review of Systems: Yes all other systems are reviewed and are negative Constitutional: Constitutional: Reports as per [facility] Past Medical History Onset Date is defined in the Problem List Problems that require an onset date and time if occurred within 24 hrs of arrival to the ED Aortic Dissection and Rupture; Neurologic impairment; Cardiopulmonary Arrest; Endotracheal Intubation; Insertion or Replacement of Mechanical Circulatory Assist Device Medical History Vitamin D deficiency Multinodular thyroid Surgical History H/O blepharoplasty History of esophagogastroduodenoscopy (EGD) History of colonoscopy Family History Family History Father Leukemia Mother Colon cancer Sister Diabetes Hypertension Social History Social History Household Members: Children Housing: Apartment Are you a primary critical care clinical nurse specialist to a significant other at home: No Do you presently have visiting nurse or other home services: No Alcohol intake: current Alcohol intake frequency: does not drink Patient Tobacco Use Status: Never used Tobacco Smoked in Last 30 Days: No Use of substances other than those prescribed or required for medical reasons: No Advance Directives: No Advance Directives Information Provided: No Patient : No service: No Current occupational status: employed Physical Exam ED Vital Signs: Vital Signs - 24 hr 04/02/23 18:29 04/02/23 18:43 04/02/23 19:35 Temperature 98.3 F 98.4 F Pulse Rate 84 74 Respiratory Rate 16 18 Blood Pressure 133/77 131/64 Pulse Oximetry 100 100 100 Oxygen Delivery Method Room Air Room Air Room Air 04/02/23 22:11 Temperature 98.0 F Pulse Rate 75 Respiratory Rate 16 Blood Pressure 136/76 Pulse Oximetry 98 Oxygen Delivery Method Room Air BMI result Body Mass Index 22.4 Const General: cooperative, comfortable and no acute distress Orientation/consciousness: patient oriented x3 Limitations: no limitations HENMT Head: Yes normal to inspection, Yes normocephalic and Yes atraumatic Ears: hearing grossly normal bilaterally General nose exam: Normal external nose present Face and sinus: Yes normal facial exam Mouth: Normal oral and palatal mucosa present, oropharynx normal and moist mucous membranes Throat: Yes posterior oropharynx normal Eyes General: appearance normal, both eyes and all related structures Eyelids: Yes eyelids normal Conjunctivae: conjunctivae normal Sclerae: sclerae normal Pupils: Equal, round and reactive pupils present EOM: EOMs intact bilaterally Neck Neck: Yes normal visual inspection, Yes full ROM and Yes no lymphadenopathy Lymphatic: no lymphadenopathy noted Chest Other: Tenderness palpation along the left posterior ribs. No step-off or crepitus. Resp Effort & Inspection: normal respiratory effort and able to speak in complete sentences Auscultation: clear to auscultation bilaterally, no crackles, no rales, no rhonchi and no wheezes Cardio Rate: regular rate Rhythm: regular rhythm Heart sounds: S1 normal heart sound present and S2 normal heart sound present GI Inspection: Yes normal to inspection Skin General skin exam: no rashes or lesions noted Trauma: no lacerations or abrasions Wounds: no wounds Neuro General: patient oriented x3 and moves all extremities Cranial nerves: Yes Equal, round and reactive pupils present Extrem Other: bilateral calf tenderness palpation, strong pedal pulse, distal sensation circulation intact. General: Yes normal to inspection Right upper extremity: normal to inspection Left upper extremity: normal to inspection Right lower extremity: normal to inspection Left lower extremity: normal to inspection Course Reevaluation(s) Reevaluation #1: EKG normal sinus rhythm, CT head and CT neck unremarkable. Rib x-ray unremarkable. Ultrasound negative. H&H stable, chemistry within normal limits. D-dimer negative. Patient tearful, reporting pain in her lower extremities. Tylenol 1 g p.o. ordered, will re-evaluate and ensure that she is able to ambulate prior to dispo. Symptoms are likely due to statin use. She states that she has had chronic lower leg pain secondary to her statin use, worse today. Has been treating her chronic leg pain with diclofenac. I discussed this with patient and recommended follow-up with primary care physician. She understands and agrees with plan. Will monitor for symptomatic improvement. Time: 22:24 Reevaluation #2: Patient feeling slightly better after receiving Tylenol. I discussed above information with patient. Second troponin not indicated as she did not have chest pain or syncopal episode. She states that she fell due to her pain that she had in her legs. She is not feeling dizzy. Pt feels well and feels comfortable for d/c. Given return precautions. She understands and agrees with plan. Stable for d/c. Time: 00:02 Medications Administered Discontinued Medications Generic Name Dose Route Start Last Admin Trade Name Camilo PRN Reason Stop Dose Admin Acetaminophen 975 mg 04/02/23 22:34 04/02/23 22:56 Acetaminophen 325 Mg Tablet PO 04/02/23 22:35 975 mg ONCE ONE Administration Medical Decision Making Medical Decision Making [facility] Narrative: This is a 62-year-old female presenting to the emergency department via EMS status post her fall which occurred today. She states that she has a history of chronic lower leg pain which is secondary to statin she is currently on. She states that she had lower extremity pain which caused her to fall striking her posterior head and left side of her ribs. On arrival, vital signs within normal limits. Patient is neurologically intact, vital signs within normal limits. Patient has tenderness palpation along the left ribs as well as lower extremities. She is neurologically intact. No focal findings. Plan: Labs, EKG, CT head, CT neck, left ribs xray Differential Diagnosis Differential Diagnoses: The differential diagnosis associated with the presentation includes ICH, PE, DVT, closed head injury, electrolyte abnormality Admission/Observation Consideration of admission/observation: Escalation of care including admission/observation considered Patient would have been admitted to the hospital had her work up had any findings where hospital admission was appropriate and her clinical presentation warranted hospital admission. Lab Data [facility] Lab Attestation statement: I reviewed the patient's lab results. See course 04/02/23 19:33 04/02/23 19:33 Labs: Lab Results 04/02/23 04/02/23 04/02/23 Range/Units 19:33 19:33 19:33 WBC 9.0 (4.8-10.8) X10*3/uL RBC 4.73 (4.20-5.50) X10*6/uL Hgb 11.0 L (12.0-16.0) g/dl Hct 35.1 L (37.0-47.0) % MCV 74.2 L (80.0-98.0) fL MCH 23.3 L (27.0-33.0) pg MCHC 31.3 (31.0-35.0) g/dl RDW 13.4 (11.0-16.0) % Plt Count 248 (160-400) X10*3/uL MPV 10.2 (9.4-12.3) fL Immature Gran % (Auto) 0.2 (0.0-0.4) % Neut % (Auto) 65.5 (45-73) % Lymph % (Auto) 25.8 (20-40) % [place] % (Auto) 8.1 (2-11) % Eos % (Auto) 0.2 (0-4) % Baso % (Auto) 0.2 (0-2) % Lymph # (Auto) 2.3 (1.2-4.9) X10*3/uL [place] # (Auto) 0.7 (0.1-1.2) X10*3/uL Eos # (Auto) 0.0 (0.0-0.4) X10*3/uL Baso # (Auto) 0.0 (0.0-0.2) X10*3/uL Abs Immat Gran (auto) 0.02 (0.00-0.03) X10*3/uL Absolute Neuts (auto) 5.9 (2.0-8.3) x10*3/uL Absolute Nucleated RBC 0.000 (0.0-0.012) X10*3/uL Nucleated RBC % (auto) 0.0 (0.0-0.2) /100WBC PT 11.0 L (11.1-13.3) SEC INR 0.9 (0.9-1.1) APTT 29.1 (26.0-36.4) SEC D-Dimer High Sensitivty < 150 Cancelled NG/ML Sodium Cancelled 144 Potassium Cancelled Chloride Carbon Dioxide Anion Gap BUN Creatinine Estim Creat Clear Calc Estimated GFR Random Glucose Calcium Magnesium Total Bilirubin Direct Bilirubin AST ALT Alkaline Phosphatase Total Creatine Kinase (26-140) U/L Troponin I High Sens (<3.5-17.0) ng/L Total Protein Albumin Lipase Urine Color Urine Appearance Urine pH (5.0-9.0) Ur Specific [place] (1.005-1.025) Urine Protein (Neg-Trace) mg/dL Urine Glucose (UA) (Negative) mg/dL Urine Ketones (Negative) mg/dL Urine Blood (Negative) Urine Nitrite (Negative) Ur Leukocyte Esterase (Negative) Urine RBC (0-2) /HPF Urine WBC (0-5) /HPF Ur Squamous Epith Cells (0-2) /HPF Urine Bacteria (None Seen) Hyaline Casts (0-2) /LPF Ethyl Alcohol mg/dL 04/02/23 04/02/23 04/02/23 Range/Units 19:33 19:33 19:33 WBC (4.8-10.8) X10*3/uL RBC (4.20-5.50) X10*6/uL Hgb (12.0-16.0) g/dl Hct (37.0-47.0) % MCV (80.0-98.0) fL MCH (27.0-33.0) pg MCHC (31.0-35.0) g/dl RDW (11.0-16.0) % Plt Count (160-400) X10*3/uL MPV (9.4-12.3) fL Immature Gran % (Auto) (0.0-0.4) % Neut % (Auto) (45-73) % Lymph % (Auto) (20-40) % [place] % (Auto) (2-11) % Eos % (Auto) (0-4) % Baso % (Auto) (0-2) % Lymph # (Auto) (1.2-4.9) X10*3/uL [place] # (Auto) (0.1-1.2) X10*3/uL Eos # (Auto) (0.0-0.4) X10*3/uL Baso # (Auto) (0.0-0.2) X10*3/uL Abs Immat Gran (auto) (0.00-0.03) X10*3/uL Absolute Neuts (auto) (2.0-8.3) x10*3/uL Absolute Nucleated RBC (0.0-0.012) X10*3/uL Nucleated RBC % (auto) (0.0-0.2) /100WBC PT (11.1-13.3) SEC INR (0.9-1.1) APTT (26.0-36.4) SEC D-Dimer High Sensitivty NG/ML Sodium Potassium 5.0 Chloride Cancelled 107 Carbon Dioxide Cancelled 25 Anion Gap Cancelled BUN Creatinine Estim Creat Clear Calc Estimated GFR Random Glucose Calcium Magnesium Total Bilirubin Direct Bilirubin AST ALT Alkaline Phosphatase Total Creatine Kinase (26-140) U/L Troponin I High Sens (<3.5-17.0) ng/L Total Protein Albumin Lipase Urine Color Urine Appearance Urine pH (5.0-9.0) Ur Specific [place] (1.005-1.025) Urine Protein (Neg-Trace) mg/dL Urine Glucose (UA) (Negative) mg/dL Urine Ketones (Negative) mg/dL Urine Blood (Negative) Urine Nitrite (Negative) Ur Leukocyte Esterase (Negative) Urine RBC (0-2) /HPF Urine WBC (0-5) /HPF Ur Squamous Epith Cells (0-2) /HPF Urine Bacteria (None Seen) Hyaline Casts (0-2) /LPF Ethyl Alcohol mg/dL 04/02/23 04/02/23 04/02/23 Range/Units 19:33 19:33 19:33 WBC (4.8-10.8) X10*3/uL RBC (4.20-5.50) X10*6/uL Hgb (12.0-16.0) g/dl Hct (37.0-47.0) % MCV (80.0-98.0) fL MCH (27.0-33.0) pg MCHC (31.0-35.0) g/dl RDW (11.0-16.0) % Plt Count (160-400) X10*3/uL MPV (9.4-12.3) fL Immature Gran % (Auto) (0.0-0.4) % Neut % (Auto) (45-73) % Lymph % (Auto) (20-40) % [place] % (Auto) (2-11) % Eos % (Auto) (0-4) % Baso % (Auto) (0-2) % Lymph # (Auto) (1.2-4.9) X10*3/uL [place] # (Auto) (0.1-1.2) X10*3/uL Eos # (Auto) (0.0-0.4) X10*3/uL Baso # (Auto) (0.0-0.2) X10*3/uL Abs Immat Gran (auto) (0.00-0.03) X10*3/uL Absolute Neuts (auto) (2.0-8.3) x10*3/uL Absolute Nucleated RBC (0.0-0.012) X10*3/uL Nucleated RBC % (auto) (0.0-0.2) /100WBC PT (11.1-13.3) SEC INR (0.9-1.1) APTT (26.0-36.4) SEC D-Dimer High Sensitivty NG/ML Sodium Potassium Chloride Carbon Dioxide Anion Gap 17 BUN Cancelled 16 Creatinine Cancelled 0.81 Estim Creat Clear Calc Cancelled Estimated GFR Random Glucose Calcium Magnesium Total Bilirubin Direct Bilirubin AST ALT Alkaline Phosphatase Total Creatine Kinase (26-140) U/L Troponin I High Sens (<3.5-17.0) ng/L Total Protein Albumin Lipase Urine Color Urine Appearance Urine pH (5.0-9.0) Ur Specific [place] (1.005-1.025) Urine Protein (Neg-Trace) mg/dL Urine Glucose (UA) (Negative) mg/dL Urine Ketones (Negative) mg/dL Urine Blood (Negative) Urine Nitrite (Negative) Ur Leukocyte Esterase (Negative) Urine RBC (0-2) /HPF Urine WBC (0-5) /HPF Ur Squamous Epith Cells (0-2) /HPF Urine Bacteria (None Seen) Hyaline Casts (0-2) /LPF Ethyl Alcohol mg/dL 04/02/23 04/02/23 04/02/23 Range/Units 19:33 19:33 19:33 WBC (4.8-10.8) X10*3/uL RBC (4.20-5.50) X10*6/uL Hgb (12.0-16.0) g/dl Hct (37.0-47.0) % MCV (80.0-98.0) fL MCH (27.0-33.0) pg MCHC (31.0-35.0) g/dl RDW (11.0-16.0) % Plt Count (160-400) X10*3/uL MPV (9.4-12.3) fL Immature Gran % (Auto) (0.0-0.4) % Neut % (Auto) (45-73) % Lymph % (Auto) (20-40) % [place] % (Auto) (2-11) % Eos % (Auto) (0-4) % Baso % (Auto) (0-2) % Lymph # (Auto) (1.2-4.9) X10*3/uL [place] # (Auto) (0.1-1.2) X10*3/uL Eos # (Auto) (0.0-0.4) X10*3/uL Baso # (Auto) (0.0-0.2) X10*3/uL Abs Immat Gran (auto) (0.00-0.03) X10*3/uL Absolute Neuts (auto) (2.0-8.3) x10*3/uL Absolute Nucleated RBC (0.0-0.012) X10*3/uL Nucleated RBC % (auto) (0.0-0.2) /100WBC PT (11.1-13.3) SEC INR (0.9-1.1) APTT (26.0-36.4) SEC D-Dimer High Sensitivty NG/ML Sodium Potassium Chloride Carbon Dioxide Anion Gap BUN Creatinine Estim Creat Clear Calc 51.0 Estimated GFR Cancelled > 60 Random Glucose Cancelled 99 Calcium Cancelled Magnesium Total Bilirubin Direct Bilirubin AST ALT Alkaline Phosphatase Total Creatine Kinase (26-140) U/L Troponin I High Sens (<3.5-17.0) ng/L Total Protein Albumin Lipase Urine Color Urine Appearance Urine pH (5.0-9.0) Ur Specific [place] (1.005-1.025) Urine Protein (Neg-Trace) mg/dL Urine Glucose (UA) (Negative) mg/dL Urine Ketones (Negative) mg/dL Urine Blood (Negative) Urine Nitrite (Negative) Ur Leukocyte Esterase (Negative) Urine RBC (0-2) /HPF Urine WBC (0-5) /HPF Ur Squamous Epith Cells (0-2) /HPF Urine Bacteria (None Seen) Hyaline Casts (0-2) /LPF Ethyl Alcohol mg/dL 04/02/23 04/02/23 04/02/23 Range/Units 19:33 19:33 19:33 WBC (4.8-10.8) X10*3/uL RBC (4.20-5.50) X10*6/uL Hgb (12.0-16.0) g/dl Hct (37.0-47.0) % MCV (80.0-98.0) fL MCH (27.0-33.0) pg MCHC (31.0-35.0) g/dl RDW (11.0-16.0) % Plt Count (160-400) X10*3/uL MPV (9.4-12.3) fL Immature Gran % (Auto) (0.0-0.4) % Neut % (Auto) (45-73) % Lymph % (Auto) (20-40) % [place] % (Auto) (2-11) % Eos % (Auto) (0-4) % Baso % (Auto) (0-2) % Lymph # (Auto) (1.2-4.9) X10*3/uL [place] # (Auto) (0.1-1.2) X10*3/uL Eos # (Auto) (0.0-0.4) X10*3/uL Baso # (Auto) (0.0-0.2) X10*3/uL Abs Immat Gran (auto) (0.00-0.03) X10*3/uL Absolute Neuts (auto) (2.0-8.3) x10*3/uL Absolute Nucleated RBC (0.0-0.012) X10*3/uL Nucleated RBC % (auto) (0.0-0.2) /100WBC PT (11.1-13.3) SEC INR (0.9-1.1) APTT (26.0-36.4) SEC D-Dimer High Sensitivty NG/ML Sodium Potassium Chloride Carbon Dioxide Anion Gap BUN Creatinine Estim Creat Clear Calc Estimated GFR Random Glucose Calcium 9.9 Magnesium Cancelled 2.3 Total Bilirubin Cancelled 0.3 Direct Bilirubin Cancelled AST ALT Alkaline Phosphatase Total Creatine Kinase (26-140) U/L Troponin I High Sens (<3.5-17.0) ng/L Total Protein Albumin Lipase Urine Color Urine Appearance Urine pH (5.0-9.0) Ur Specific [place] (1.005-1.025) Urine Protein (Neg-Trace) mg/dL Urine Glucose (UA) (Negative) mg/dL Urine Ketones (Negative) mg/dL Urine Blood (Negative) Urine Nitrite (Negative) Ur Leukocyte Esterase (Negative) Urine RBC (0-2) /HPF Urine WBC (0-5) /HPF Ur Squamous Epith Cells (0-2) /HPF Urine Bacteria (None Seen) Hyaline Casts (0-2) /LPF Ethyl Alcohol mg/dL 04/02/23 04/02/23 04/02/23 Range/Units 19:33 19:33 19:33 WBC (4.8-10.8) X10*3/uL RBC (4.20-5.50) X10*6/uL Hgb (12.0-16.0) g/dl Hct (37.0-47.0) % MCV (80.0-98.0) fL MCH (27.0-33.0) pg MCHC (31.0-35.0) g/dl RDW (11.0-16.0) % Plt Count (160-400) X10*3/uL MPV (9.4-12.3) fL Immature Gran % (Auto) (0.0-0.4) % Neut % (Auto) (45-73) % Lymph % (Auto) (20-40) % [place] % (Auto) (2-11) % Eos % (Auto) (0-4) % Baso % (Auto) (0-2) % Lymph # (Auto) (1.2-4.9) X10*3/uL [place] # (Auto) (0.1-1.2) X10*3/uL Eos # (Auto) (0.0-0.4) X10*3/uL Baso # (Auto) (0.0-0.2) X10*3/uL Abs Immat Gran (auto) (0.00-0.03) X10*3/uL Absolute Neuts (auto) (2.0-8.3) x10*3/uL Absolute Nucleated RBC (0.0-0.012) X10*3/uL Nucleated RBC % (auto) (0.0-0.2) /100WBC PT (11.1-13.3) SEC INR (0.9-1.1) APTT (26.0-36.4) SEC D-Dimer High Sensitivty NG/ML Sodium Potassium Chloride Carbon Dioxide Anion Gap BUN Creatinine Estim Creat Clear Calc Estimated GFR Random Glucose Calcium Magnesium Total Bilirubin Direct Bilirubin 0.1 AST Cancelled 40 H ALT Cancelled 33 H Alkaline Phosphatase Cancelled Total Creatine Kinase (26-140) U/L Troponin I High Sens (<3.5-17.0) ng/L Total Protein Albumin Lipase Urine Color Urine Appearance Urine pH (5.0-9.0) Ur Specific [place] (1.005-1.025) Urine Protein (Neg-Trace) mg/dL Urine Glucose (UA) (Negative) mg/dL Urine Ketones (Negative) mg/dL Urine Blood (Negative) Urine Nitrite (Negative) Ur Leukocyte Esterase (Negative) Urine RBC (0-2) /HPF Urine WBC (0-5) /HPF Ur Squamous Epith Cells (0-2) /HPF Urine Bacteria (None Seen) Hyaline Casts (0-2) /LPF Ethyl Alcohol mg/dL 04/02/23 04/02/23 04/02/23 Range/Units 19:33 19:33 19:33 WBC (4.8-10.8) X10*3/uL RBC (4.20-5.50) X10*6/uL Hgb (12.0-16.0) g/dl Hct (37.0-47.0) % MCV (80.0-98.0) fL MCH (27.0-33.0) pg MCHC (31.0-35.0) g/dl RDW (11.0-16.0) % Plt Count (160-400) X10*3/uL MPV (9.4-12.3) fL Immature Gran % (Auto) (0.0-0.4) % Neut % (Auto) (45-73) % Lymph % (Auto) (20-40) % [place] % (Auto) (2-11) % Eos % (Auto) (0-4) % Baso % (Auto) (0-2) % Lymph # (Auto) (1.2-4.9) X10*3/uL [place] # (Auto) (0.1-1.2) X10*3/uL Eos # (Auto) (0.0-0.4) X10*3/uL Baso # (Auto) (0.0-0.2) X10*3/uL Abs Immat Gran (auto) (0.00-0.03) X10*3/uL Absolute Neuts (auto) (2.0-8.3) x10*3/uL Absolute Nucleated RBC (0.0-0.012) X10*3/uL Nucleated RBC % (auto) (0.0-0.2) /100WBC PT (11.1-13.3) SEC INR (0.9-1.1) APTT (26.0-36.4) SEC D-Dimer High Sensitivty NG/ML Sodium Potassium Chloride Carbon Dioxide Anion Gap BUN Creatinine Estim Creat Clear Calc Estimated GFR Random Glucose Calcium Magnesium Total Bilirubin Direct Bilirubin AST ALT Alkaline Phosphatase 56 Total Creatine Kinase 168 H (26-140) U/L Troponin I High Sens < 2.7 (<3.5-17.0) ng/L Total Protein Cancelled 8.6 H Albumin Cancelled 4.5 Lipase Cancelled Urine Color Urine Appearance Urine pH (5.0-9.0) Ur Specific [place] (1.005-1.025) Urine Protein (Neg-Trace) mg/dL Urine Glucose (UA) (Negative) mg/dL Urine Ketones (Negative) mg/dL Urine Blood (Negative) Urine Nitrite (Negative) Ur Leukocyte Esterase (Negative) Urine RBC (0-2) /HPF Urine WBC (0-5) /HPF Ur Squamous Epith Cells (0-2) /HPF Urine Bacteria (None Seen) Hyaline Casts (0-2) /LPF Ethyl Alcohol mg/dL 04/02/23 Range/Units 19:33 WBC (4.8-10.8) X10*3/uL RBC (4.20-5.50) X10*6/uL Hgb (12.0-16.0) g/dl Hct (37.0-47.0) % MCV (80.0-98.0) fL MCH (27.0-33.0) pg MCHC (31.0-35.0) g/dl RDW (11.0-16.0) % Plt Count (160-400) X10*3/uL MPV (9.4-12.3) fL Immature Gran % (Auto) (0.0-0.4) % Neut % (Auto) (45-73) % Lymph % (Auto) (20-40) % [place] % (Auto) (2-11) % Eos % (Auto) (0-4) % Baso % (Auto) (0-2) % Lymph # (Auto) (1.2-4.9) X10*3/uL [place] # (Auto) (0.1-1.2) X10*3/uL Eos # (Auto) (0.0-0.4) X10*3/uL Baso # (Auto) (0.0-0.2) X10*3/uL Abs Immat Gran (auto) (0.00-0.03) X10*3/uL Absolute Neuts (auto) (2.0-8.3) x10*3/uL Absolute Nucleated RBC (0.0-0.012) X10*3/uL Nucleated RBC % (auto) (0.0-0.2) /100WBC PT (11.1-13.3) SEC INR (0.9-1.1) APTT (26.0-36.4) SEC D-Dimer High Sensitivty NG/ML Sodium Potassium Chloride Carbon Dioxide Anion Gap BUN Creatinine Estim Creat Clear Calc Estimated GFR Random Glucose Calcium Magnesium Total Bilirubin Direct Bilirubin AST ALT Alkaline Phosphatase Total Creatine Kinase (26-140) U/L Troponin I High Sens (<3.5-17.0) ng/L Total Protein Albumin Lipase 19 Urine Color Yellow Urine Appearance Clear Urine pH 8.0 (5.0-9.0) Ur Specific [place] <= 1.005 (1.005-1.025) Urine Protein Negative (Neg-Trace) mg/dL Urine Glucose (UA) Negative (Negative) mg/dL Urine Ketones Negative (Negative) mg/dL Urine Blood Trace H (Negative) Urine Nitrite Negative (Negative) Ur Leukocyte Esterase Negative (Negative) Urine RBC 0-2 (0-2) /HPF Urine WBC 0-5 (0-5) /HPF Ur Squamous Epith Cells 0-2 (0-2) /HPF Urine Bacteria None Seen (None Seen) Hyaline Casts 0-2 (0-2) /LPF Ethyl Alcohol < 10 mg/dL Radiology Impression Discussion of test interpretation with radiology: I have reviewed the radiologist's reading. External Record Review External record reviewed: Inpatient record, Office record, Outpatient record, Prior outpatient labs, Prior outpatient radiology, Primary care record and Outside ED record Discharge Plan Discharge Clinical Impression: Myalgia Patient Disposition: Home, Self-Care Instructions: Musculoskeletal Pain (ED) Additional Instructions: You were seen in the emergency department after a fall. Your head CT, neck CT, EKG and left rib x-rays were normal. Your labs are reassuring. Your symptoms are likely due to your statin medication. I would follow-up with your primary care physician in regards to this as you may need to switch her medications. If any new or worsening symptoms occur, chest pain, shortness of breath, worsening pain, please return for re-evaluation. Lo atendieron en el departamento de emergencias despu?s de trinity ca?da. White tomograf?a computarizada de kriss, tomograf?a computarizada de danette, electrocardiograma y radiograf?as de jaelyn izquierda fueron normales. Katerine laboratorios son tranquilizadores. Es probable que katerine s?ntomas se deban a white medicaci?n con estatinas. Tyler?a un seguimiento con white m?dico de atenci?n primaria con respecto a esto, ya que es posible que deba cambiar katerine medicamentos. Si se presenta alg?n s?ntoma nuevo o que empeora, dolor en el pecho, dificultad para respirar, dolor que empeora, regrese para trinity reevaluaci?n. Prescriptions: No Action aspirin 81 mg Tablet 81 mg PO BID PRN (Reason: Pain) tramadol 50 mg tablet 50 mg PO Q6H PRN (Reason: pain) Qty: 20 0RF rosuvastatin 40 mg tablet 40 mg PO BEDTIME ezetimibe 10 mg tablet 10 mg PO DAILY fluticasone propionate 50 mcg/actuation spray,suspension 1 spray intranasal BID diclofenac sodium 75 mg tablet,delayed release (DR/EC) 75 mg PO BID triamcinolone acetonide 0.5 % cream topical magnesium oxide 400 mg (241.3 mg magnesium) tablet 800 mg PO BID Qty: 120 6RF omeprazole 20 mg capsule,delayed release(DR/EC) 20 mg PO DAILY 30 Days Qty: 30 6RF lisinopril 2.5 mg tablet 2.5 mg PO DAILY Qty: 30 3RF Interventions: ED Discharge Assessment Last Done: 04/03/23 00:32 Discharge Date/Time: 04/03/23 00:33
--- NOTE | 2023-04-02 18:41 | ECG_ITS ---
Test Reason : SYNCOPE Blood Pressure : / mmHG Vent. Rate : 075 BPM Atrial Rate : 075 BPM P-R Int : 144 ms QRS Dur : 086 ms QT Int : 386 ms P-R-T Axes : 075 068 054 degrees QTc Int : 431 ms Normal sinus rhythm Normal ECG When compared with ECG of 08-JAN-2023 20:23, No significant change was found Referred By: Radha Tobar Electronically Signed By:KAYA ADORNO MD
[2023-04-02 18:43] VITALS: O2SAT 100
[2023-04-02 19:35] VITALS: BP 131/64; PULSE 74; RESP 18; TEMP 36.9; O2SAT 100
--- NOTE | 2023-04-02 19:39 | MHC.EDTECH ---
This tech took over care of patient at 1900, Hourly rounds and vitals completed,EKG taken per order and signed by provider,labs and urine obtained and sent to lab. Patient repositioned to comfort and changed into hospital attire,call burton in reach.
[2023-04-02 19:50] LABS: MANUAL DIFF FLAG NO
[2023-04-02 19:52] LABS: Basophils Percent Auto 0.2 % (0-2); Eosinophils Percent Auto 0.2 % (0-4); Hematocrit 35.1 % (37.0-47.0); Imm Gran Abs Auto 0.02 X10*3/uL (0.00-0.03); Imm Gran Pct Auto 0.2 % (0.0-0.4); Lymphocytes Absolute Auto 2.3 X10*3/uL (1.2-4.9); Lymphocytes Percent Auto 25.8 % (20-40); Mean Corpuscular HGB Conc 31.3 g/dl (31.0-35.0); Mean Corpuscular Hemoglobin 23.3 pg (27.0-33.0); Mean Corpuscular Volume 74.2 fL (80.0-98.0); Mean Platelet Volume 10.2 fL (9.4-12.3); Monocytes Absolute Auto 0.7 X10*3/uL (0.1-1.2); Monocytes Percent Auto 8.1 % (2-11); Neutrophils Absolute Auto 5.9 x10*3/uL (2.0-8.3); Neutrophils Percent Auto 65.5 % (45-73); Platelet Count 248 X10*3/uL (160-400); Red Blood Count 4.73 X10*6/uL (4.20-5.50); Red Cell Distribution Width 13.4 % (11.0-16.0)
[2023-04-02 19:54] LABS: Appearance Urine Clear; Color Urine Yellow; Glucose Urine UA Negative (Negative); Leukocyte Esterase Urine Negative (Negative); Nitrite Urine Negative (Negative); Specific Gravity - Urine <= 1.005 (1.005-1.025); UMIC TRIGGER UACC YES; Urine Blood Trace (Negative); Urine Ketones Negative (Negative); Urine Protein Negative (Neg-Trace)
--- NOTE | 2023-04-02 19:55 | MHC.EDTECH ---
Patient urinated a large amount of urine in bedpan,patient was cleaned and cristi-care given,Patient repositioned and call burton in reach
[2023-04-02 19:57] LABS: Bacteria Urine None Seen (None Seen); Hyaline Casts Urine 0-2 /LPF (0-2); INTERNATIONAL NORM RATIO 0.9 (0.9-1.1); RBC Urine 0-2 /HPF (0-2); Squamous Epithelial Cell Urine 0-2 /HPF (0-2); WBC Urine 0-5 /HPF (0-5)
[2023-04-02 20:00] LABS: Partial Thromboplastin Time 29.1 SEC (26.0-36.4)
[2023-04-02 20:01] LABS: D Dimer High Sensitivity < 150 NG/ML
[2023-04-02 20:12] LABS: Alanine Aminotransferase 33 U/L (0-31); Albumin Level 4.5 g/dL (3.5-5.0); Alkaline Phosphatase 56 U/L (39-117); Anion Gap 17 (12-20); Aspartate Amino Transferase 40 U/L (5-31); Bilirubin Direct 0.1 mg/dL (0.0-0.5); Bilirubin Total 0.3 mg/dL (0.0-1.0); Blood Urea Nitrogen 16 mg/dL (9-16); Calcium 9.9 mg/dL (8.4-10.2); Carbon Dioxide 25 mmol/L (22-29); Chloride 107 mmol/L (96-108); Estimated Glomerular Filt Rate > 60; Ethanol < 10 mg/dL; Glucose Random 99 mg/dL (60-115); Lipase 19 U/L (8-78); Magnesium 2.3 mg/dL (1.6-2.6); Sodium 144 mmol/L (135-145); Total Protein 8.6 g/dL (6.5-8.0)
[2023-04-02 20:16] LABS: Troponin-I High Sensitivity < 2.7 ng/L (<3.5-17.0)
[2023-04-02 22:11] VITALS: BP 136/76; PULSE 75; RESP 16; TEMP 36.7; O2SAT 98
--- NOTE | 2023-04-02 22:12 | MHC.EDTECH ---
Hourly rounds and vitals completed, patient is very tearful, Patient stated she is in a lot of pain, CAMRYN Enriquez aware and RN. Call burton in reach
[2023-04-02] MEDS: Acetaminophen 325 MG TABLET 975 MG PO (22:56)
== END 2023-04-03 00:33 | disposition home or self-care (01) ==
PROVIDERS: Physician Assistant Medical; Emergency Provider Emergency Medicine; PCP Internal Medicine
DX: R07.89 Other chest pain (principal); M79.605 Pain in left leg; M79.604 Pain in right leg; M79.10 Myalgia, unspecified site; R51.9 Headache, unspecified; R07.81 Pleurodynia; M54.2 Cervicalgia; R60.0 Localized edema; Z79.899 Other long term (current) drug therapy
CPT/HCPCS: 36415; 70450; 71101; 72125; 80048; 80076; 80307; 81001; 82550; 83690; 83735; 84484; 85025; 85379; 85610; 85730; 93005; 93970; 99284; 99285

== ENCOUNTER 2023-05-06 12:12 | Outpatient (AMB) | payer OTHER, SELFPAY ==
--- NOTE | 2023-05-06 12:51 | MHC.OFFVIS ---
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/HTN Intake Note: New patient HTN no chest pain had ekg in [place] not having any chest pain Sleep Technologist Required: Yes Sleep Technologist Name: Imelda Allergies Iodinated Contrast Media [IV Contrast Dye] Allergy (Verified 04/02/23 18:27) Unconscious Medication List - Last Reconciled 05/06/23 by Homer Reyna MD ezetimibe 10 mg PO DAILY fluticasone propionate 50 mcg/actuation 1 spray intranasal BID magnesium oxide 800 mg (2 x 400 mg (241.3 mg magnesium)) PO BID omeprazole 20 mg PO DAILY 30 days HPI HPI Comments History of Present Illness Details Daily was referred here for evaluation of palpitations and episodic high blood pressure. History was obtained with help of electronic service technician. Patient said she has had episodic episodes of hypertension and initially was prescribed metoprolol but then soon developed side effects of lightheadedness and not feeling well. After that metoprolol was discontinued and she was switch to lisinopril therapy and had again symptoms of lightheadedness. Since then she has been monitoring her blood pressure and a blood pressures been generally normal range. She does not think that her episodic hypertension is related to anxiety or stress. Although she appears pretty emotional. Her main complaint is severe pain in both lower extremity more prominent in the right lower extremity and also numbness in her hands and her legs. She also feels very cold in her feet. She thinks that she might have circulation issues. She also has symptoms of sharp pain in bilateral chest area as well as rapid heart rate. She has been evaluated [facility] by cardiology department for similar symptoms in the past she has had rare PACs and PVCs less than 1% burden normal echocardiogram. She denies any exertional chest pain or shortness of breath. Denies any lightheadedness, syncope. No orthopnea, PND, leg edema. [facility] Medical History Vitamin D deficiency Multinodular thyroid Surgical History H/O blepharoplasty History of esophagogastroduodenoscopy (EGD) History of colonoscopy Family History Father Leukemia Mother Colon cancer Sister Diabetes Hypertension Social History Household Members: Children Housing: Apartment Are you a primary customer care representative to a significant other at home: No Do you presently have visiting nurse or other home services: No Alcohol intake: current Alcohol intake frequency: does not drink Patient Tobacco Use Status: Never used Tobacco service: No Current occupational status: employed Review of Systems Const Denies chills, Denies daytime sleepiness, Denies fatigue, Denies fever(s), Denies frequent falls, Denies poor appetite, Denies snoring, Denies stops breathing during sleep, Denies weakness, Denies weight gain and Denies weight loss Eyes Denies loss of vision ENT Denies dizziness and Denies hearing loss Card Denies chest pain, Denies claudication, Denies leg edema, Denies lightheadedness, Denies palpitations, Denies dyspnea, Denies dyspnea on exertion and Denies orthopnea Resp Denies cough, Denies excessive phlegm production, Denies dyspnea, Denies dyspnea on exertion, Denies snoring and Denies wheezing GI Denies abdominal pain, Denies hematochezia, Denies change in bowel habits, Denies nausea and Denies vomiting Denies urinary frequency and Denies dysuria Musc Denies arthralgias, Denies muscle weakness, Denies numbness and Denies other (frequent falls) Skin/Breast Denies nail changes and Denies rash Neuro Denies Abnormal speech present, Denies dizziness, Denies frequent falls, Denies loss of vision, Denies memory loss, Denies numbness and Denies weakness Psych Denies depression and Denies memory loss Endo Denies fatigue and Denies palpitations Jacob/Lymph Reports easy bruising and Reports other (anemia) Aller/Immun Denies wheezing Physical Exam Vital Signs: Last Vital Signs Pulse 74 05/06/23 12:53 BP 110/70 05/06/23 12:53 BMI result Body Mass Index 22.0 Const General: cooperative, comfortable, no acute distress, alert, awake, Physically active and anxious Nutritional Appearance: thin Orientation/consciousness: patient oriented x3 Limitations: no limitations HEENT Head: Yes normal to inspection Neck Neck: Yes trachea midline and Yes no JVD Resp Effort & Inspection: normal respiratory effort Auscultation: clear to auscultation bilaterally Cardio Jugular venous distension: no JVD Palpation: normal PMI Rate: regular rate Rhythm: regular rhythm Heart sounds: S1 normal heart sound present, S2 normal heart sound present, no click, no gallops, no murmurs and no rubs GI Auscultation: normal bowel sounds Skin General skin exam: no rashes or lesions noted Neuro General: patient oriented x3 and no focal motor deficits Speech: No Abnormal speech present Extrem General: Yes no clubbing, cyanosis or edema Psych Appearance: grossly normal Assessment & Plan Assessment & Plan (1) Palpitations: Code(s): R00.2 - Palpitations Plan: Patient with symptoms of sharp discomfort in the chest most likely related to isolated extra systoles but also rapid heart rate. She is very anxious about these symptoms. Most likely appears to me that her symptoms are driven by anxiety and could be related to sinus tachycardia. There is also possibility of supraventricular tachycardia and atrial fibrillation which are low on the likelihood scale. Will obtain a 3 day Holter monitor to further assess for the symptoms of palpitations. No pharmacotherapy is been recommended. Avoidance of stimulants was discussed. Stress mitigation strategies were discussed. If Holter monitor is benign, will follow up in the clinic if need be. No other workup is indicated. (2) Episode of hypertension: Code(s): I10 - Essential (primary) hypertension Plan: Episodic hypertension but blood pressure recorded over the last month and half appear to be within normal range. Question blood pressure related to anxiety/stress. However she denies this. Advised to continue to monitor blood pressure at home and avoid salt loading. I would avoid any pharmacotherapy given her side effects and normotensive blood pressures. Will follow up in the clinic if need be. Thank you for allowing me to partake in the care Coding Level of Care Code New Pt Level 3 (54789) Diagnoses Palpitations R00.2 Episode of hypertension I10
[2023-05-06 12:53] VITALS: BP 110/70; PULSE 74; BMI 22.0
== END 2023-05-06 13:28 | disposition home or self-care (01) ==
PROVIDERS: PCP Internal Medicine; Visit Provider Internal Medicine Cardiovascular Disease
DX: R00.2 Palpitations (principal); I10 Essential (primary) hypertension
CPT/HCPCS: 99203

== ENCOUNTER → 2023-05-06 12:12 | Outpatient (BNVA) | payer OTHER, SELFPAY | PROVIDERS: PCP Internal Medicine; Visit Provider Internal Medicine Cardiovascular Disease | DX: R00.2 Palpitations (principal); I10 Essential (primary) hypertension | CPT/HCPCS: 99202 ==

== ENCOUNTER 2023-05-15 08:20 | Outpatient (AMB) | payer OTHER, SELFPAY ==
--- NOTE | 2023-05-15 08:28 | A.OFFVIS_ITS ---
Intake Intake Visit Reasons: 6 weeks Follow up Intake Note: Patient follow up for Constipation Patient cc: slow digestion and denies any other GI issues, medication for constipation is helping her. Brass And Wind Instrument Repairer Required: Yes Brass And Wind Instrument Repairer Name: Francisca [facility] [place] Accompanied by: Self / Same As Patient Allergies Iodinated Contrast Media [IV Contrast Dye] Allergy (Verified 05/15/23 08:30) Unconscious HPI 6 weeks Follow up HPI Details Assessment & Plan (1) GERD (gastroesophageal reflux diseas e): Code(s): K21.9 - Gastro-esophageal reflux disease without esophagitis (2) Constipation: Code(s): K59.00 - Constipation, unspecified (3) LUQ pain: Code(s): R10.12 - Left upper quadrant pain (4) Dysphagia: Code(s): R13.10 - Dysphagia, unspecified Plan [place] #dtr interprets per pt request. She is doing much better, she credits the IB Guard and a probiotic (which I recommended) and she has no more LUQ pain and has not needed to take the omeprazole. This is fine, we will d/c the omeprazole. She also received the lisinopril 2.5mg dose and is having no more dizziness. She has not yet heard from cardiology but I give her the phone # - I think she needs more professional mgmt of her HTN. She stopped her metoprolol, and her BP is the same, very mildly high as before, and this may be ok to offset the risk pre syncope and falls. Cautiously increasing lisinopril may also be prudent. She received the magnesium and credits this as well to helping her to move her bowels up to bid, but she still has incomplete evacuation. Will increase to 2 tabs bid and titrate. ROV 6 weeks. Dtr will email me last EGD from OR from her esophageal impaction of garlic and HH. They again had questions RE: HH and again were educated. Declines barium swallow for now will watch and wait. This was a long appointment because her daughter was not with her at the last 1 and I had to again explained about the hiatal hernia and why we do not routinely surgically repair these. Orders: Orders [place] barium swallow Today R13.10 - Dysphagia , unspecified Medications: Changed From magnesium oxide 400 mg PO BID 60 tabs 6RF K59.00 - Constipat ion, unspecified To magnesium oxide 800 mg (2 x 400 mg (241.3 mg magnesi um)) PO BID 120 ta bs 6RF K59.00 - Constipat ion, unspecified BARIUM SWALLOW SCHEDULED FOR 05/16/2023 TODAY'S VISIT [place] #Francisca Reardon She will have episodes of severe pain with sitting intermittently, she has a hx of fx of coccyx ? if this is related. She has sensitivity at L5-S1 and in the SI joints. She spoke with her accounts payable clerk re: BP but they did not feel that any adjustment was needed or that it was r/t her leg pain. She is now moving her bowels very well with 2 magnesium a day. She feels like my digestion is slow but still her appetite is good and she does very well with the IB guard and the probiotic. She was questioning if she needed the barium swallow, and I explain why I would like to have it given her hx of esophageal spasm. This is a long appt because of a misunderstanding/missed documentation on her file. ROV 3 mos. PFSH Medical History Vitamin D deficiency Multinodular thyroid Surgical History H/O blepharoplasty History of esophagogastroduodenoscopy (EGD) History of colonoscopy Family History Father Leukemia Mother Colon cancer Sister Diabetes Hypertension Social History Household Members: Children Housing: Apartment Are you a primary primary care nurse to a significant other at home: No Do you presently have visiting nurse or other home services: No Alcohol intake: current Alcohol intake frequency: does not drink Patient Tobacco Use Status: Never used Tobacco service: No Current occupational status: employed Review of Systems Const Denies fatigue, Denies fever(s), Denies night sweats, Denies poor appetite and Denies weight loss ENT Reports Normal hearing present, Denies dental pain, Denies dysphagia, Denies hearing loss, Denies mouth pain, Denies odynophagia, Denies throat swelling, Denies tongue swelling and Reports other (Dentition adequate) Card Reports no additional complaints Resp Reports no additional complaints GI Details: Denies abdominal pain, Denies melena, Reports bloating, Denies hematochezia, Denies constipation, Reports GI cramping, Denies dysphagia, Denies excessive flatus, Denies early satiety, Reports heartburn, Denies diarrhea, Denies nausea, Denies odynophagia, Denies vomiting and Denies hematemesis Skin/Breast Denies pruritus, Denies lesions, Denies rash and Denies jaundice Neuro Reports Normal hearing present and Denies Abnormal speech present Endo Denies fatigue Aller/Immun Denies throat swelling and Denies tongue swelling Physical Exam Const General: cooperative, no acute distress, well developed and well groomed Nutritional Appearance: average body habitus and well nourished Orientation/consciousness: oriented to person, oriented to place and oriented to time Limitations: language barrier HEENT Head: Yes normocephalic and Yes atraumatic Eyes General: appearance normal, both eyes and all related structures Pupils: Equal, round and reactive pupils present Neck Neck: Yes normal visual inspection and Yes no lymphadenopathy Thyroid: Thyroid normal Resp Effort & Inspection: normal respiratory effort and able to speak in complete sentences Auscultation: clear to auscultation bilaterally Cardio Rate: regular rate Rhythm: regular rhythm Heart sounds: Normal, physiologic split S2 sound present Peripheral pulses: radial pulses present and posterior tibial pulses present GI Inspection: No distended and No Abdominal panniculus present Palpation (GI): Soft to palpation, nontender, no guarding, not rigid and No hepatosplenomegaly present Percussion: Yes normal to percussion Auscultation: normal bowel sounds Rectal Exam - Female: deferred Skin General skin exam: no rashes or lesions noted, turgor normal, skin not dry, no jaundice, No spider nevi and no striae Rashes: no rashes Nails: normal Neuro General: oriented to person, oriented to place and oriented to time Cranial nerves: Yes Equal, round and reactive pupils present and Yes Normal hearing present Speech: No Abnormal speech present Extrem General: Yes normal to inspection, No clubbing, No cyanosis and No edema Psych Appearance: grossly normal and well kempt Mental Status: mental status grossly normal Speech and movement: Normal speech and movement present Affect: normal affect Attitude: cooperative Thought process: Normal thought process present and not confabulating Thought content: Normal thought content present Insight: Limited insight present (Psych) Judgement: Limited judgement present (Psych) Assessment & Plan Assessment & Plan (1) GERD (gastroesophageal reflux disease): Code(s): K21.9 - Gastro-esophageal reflux disease without esophagitis (2) Constipation: Code(s): K59.00 - Constipation, unspecified Plan [place] #Francisca Live She will have episodes of severe pain with sitting intermittently, she has a hx of fx of coccyx ? if this is related. She has sensitivity at L5-S1 and in the SI joints. She spoke with her accounts payable clerk re: BP but they did not feel that any adjustment was needed or that it was r/t her leg pain. She is now moving her bowels very well with 2 magnesium a day. She feels like my digestion is slow but still her appetite is good and she does very well with the IB guard and the probiotic. She was questioning if she needed the barium swallow, and I explain why I would like to have it given her hx of esophageal spasm. This is a long appt because of a misunderstanding/missed documentation on her file. ROV 3 mos. Coding Level of Care Code Est Pt Level 3 (93061) Diagnoses GERD (gastroesophageal reflux disease) K21.9 Constipation K59.00
== END 2023-05-15 09:21 | disposition home or self-care (01) ==
PROVIDERS: PCP Internal Medicine; Visit Provider Nurse Practitioner
DX: K21.9 Gastro-esophageal reflux disease without esophagitis (principal); K59.00 Constipation, unspecified
CPT/HCPCS: 99213

== ENCOUNTER → 2023-05-15 08:20 | Outpatient (BNVA) | payer OTHER, SELFPAY | PROVIDERS: PCP Internal Medicine; Visit Provider Nurse Practitioner | DX: K21.9 Gastro-esophageal reflux disease without esophagitis (principal); K59.00 Constipation, unspecified | CPT/HCPCS: 99212 ==

== ENCOUNTER 2023-05-23 02:46 | Emergency (ER) | payer OTHER, SELFPAY ==
[2023-05-23 02:55] VITALS: BP 146/73; BP 150/70; PULSE 80; PULSE 84; RESP 14; TEMP 36.8; O2SAT 98
[2023-05-23 03:16] VITALS: BMI 22.1
[2023-05-23] MEDS: diphenhydrAMINE HCL 25 MG CAPSULE PO (03:26)
[2023-05-23 03:37] LABS: Influenza A PCR NEGATIVE (Negative); Influenza B PCR NEGATIVE (Negative); Resp Syncy Virus RNA Qual PCR NEGATIVE (Negative); SARS COV2 PCR INHOUSE NEGATIVE (Negative)
--- NOTE | 2023-05-23 04:08 | ED.URI ---
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 Patient reports that she feels significant sinus pressure and reports that she was started on penicillin for presumptive throat infection but states that she never had a swab done of her throat. Related Data Home Medications Medication Instructions Recorded Confirmed ezetimibe 10 mg tablet 10 mg PO DAILY 02/27/23 05/06/23 fluticasone propionate 50 1 spray intranasal BID 02/27/23 05/06/23 mcg/actuation nasal spray,suspension Previous Rx's Medication Instructions Recorded omeprazole 20 mg capsule,delayed 20 mg PO DAILY 30 days #30 caps 01/22/23 release magnesium oxide 400 mg (241.3 mg 800 mg (2 x 400 mg (241.3 mg 02/27/23 magnesium) tablet magnesium)) PO BID #120 tabs Allergies Allergy/AdvReac Type Severity Reaction Status Date / Time Iodinated Contrast Media Allergy Unconscious Verified 05/23/23 02:57 [IV Contrast Dye] Review of Systems Review of Systems: Pertinent positives and negatives as stated in HPI [facility] Past Medical History Source: nursing notes reviewed Medical History Vitamin D deficiency Multinodular thyroid Surgical History H/O blepharoplasty History of esophagogastroduodenoscopy (EGD) History of colonoscopy Family History Family History Father Leukemia Mother Colon cancer Sister Diabetes Hypertension Social History Social History Household Members: Children Housing: Apartment Are you a primary campground caretaker to a significant other at home: No Do you presently have visiting nurse or other home services: No Alcohol intake: current Alcohol intake frequency: does not drink Patient Tobacco Use Status: Never used Tobacco Advance Directives: No Advance Directives Information Provided: Yes service: No Current occupational status: employed Physical Exam Vital Signs: Vital Signs: Last Vital Signs Temp 98.3 F 05/23/23 02:55 Pulse 84 05/23/23 02:55 Resp 14 05/23/23 02:55 BP 146/73 H 05/23/23 02:55 Pulse Ox 98 05/23/23 02:55 O2 Del Method Room Air 05/23/23 02:55 BMI result Body Mass Index 22.1 VITAL SIGNS: Reviewed. GENERAL: Well developed, well nourished, in no acute distress. HEAD: Normocephalic/atraumatic EYES: PERRLA, EOMI EARS: Ext canals without abnormality, TMs non-bulging and non-erythematous NOSE: Boggy turbinates OROPHARYNX: no oral lesions noted, posterior pharynx clear and non-erythematous without noted tonsillar enlargement/erythema/exudates NECK: Supple, no adenopathy LUNGS: Normal breath sounds. No adventitious sounds or accessory muscle use. SpO2<98> CARDIOVASCULAR: Regular rate and rhythm without noted murmurs ABDOMEN: Soft, non-tender, non-distended with bowel sounds. MUSCULOSKELETAL: No tenderness, deformities, or effusions noted on gross inspection. EXTREMITIES: No cyanosis, clubbing or edema. SKIN: Inspection of the skin reveals no rashes NEUROLOGIC: Alert and oriented x 4. Strength and sensation to light touch were grossly intact x 4. Medications Administered Discontinued Medications Generic Name Dose Route Start Last Admin Trade Name Freq PRN Reason Stop Dose Admin Diphenhydramine HCl 25 mg 05/23/23 03:06 05/23/23 03:26 Diphenhydramine Hcl 25 Mg Capsule PO 05/23/23 03:07 25 mg ONCE ONE Administration Medical Decision Making Medical Decision Making [facility] Narrative: 62-year-old female with history and clinical presentation most consistent with viral infection and suspect a viral sinusitis as well as viral pharyngitis, patient does not exhibit any elevated temperatures I reviewed all investigations and testing for influenza/RSV/COVID-19 is negative. I did offer the patient 25 mg of Benadryl and she has had some improvement in her nasal congestion. We reviewed a number of fqih-aal-wmmtrub medications which I will provide in the discharge paperwork. I have instructed the patient to stop taking the antibiotics as there are no findings to suggest bacterial pharyngitis. Differential Diagnosis Differential Diagnoses: The differential diagnosis associated with the presentation includes Please see the discussion above Admission/Observation Consideration of admission/observation: Escalation of care including admission/observation considered Please see the discussion above Lab Data MDM Lab Attestation statement: I reviewed the patient's lab results. Please see the discussion above Labs: Lab Results 05/23/23 Range/Units 02:57 Influenza Type A (PCR) NEGATIVE (Negative) Influenza Type B (PCR) NEGATIVE (Negative) RSV RNA Qual (PCR) NEGATIVE (Negative) SARS-CoV-2 RNA (RT-PCR) NEGATIVE (Negative) External Record Review External record reviewed: Outpatient record and Prior outpatient labs Discharge Plan Discharge Clinical Impression: Viral syndrome, Viral pharyngitis Patient Disposition: Home, Self-Care Instructions: Pharyngitis (ED), Viral Syndrome (ED) Additional Instructions: 1. Recomiendo fluticasona (Flonase) de venta eladia para ayudar a reducir la inflamaci?n de las fosas nasales. Kelly de christina los antibi?ticos. 2. Tambi?n recomiendo el humidificador de vapor fr?o junto a la cama para aliviar a?n m?s los s?ntomas mientras duerme por la noche. 3. Benadryl de venta eladia puede ayudar con la inflamaci?n y la secreci?n nasal. 4. Jas un seguimiento con buchanan m?dico de atenci?n primaria en los pr?ximos 1 o 2 d?as. 1. I recommend affl-jjw-trefuth fluticasone (Flonase) to help reduce the inflammation within your nasal passages. Stop taking the antibiotics. 2. I also recommend bedside cool mist humidifier for additional symptom relief while sleeping at night. 3. Erod-oon-teupgzo Benadryl can help with inflammation and runny nose. 4. Follow-up with your primary care doctor in the next 1-2 days. Prescriptions: No Action ezetimibe 10 mg tablet 10 mg PO DAILY fluticasone propionate 50 mcg/actuation spray,suspension 1 spray intranasal BID magnesium oxide 400 mg (241.3 mg magnesium) tablet 800 mg PO BID Qty: 120 6RF omeprazole 20 mg capsule,delayed release(DR/EC) 20 mg PO DAILY 30 Days Qty: 30 6RF Print Language: Burkinan
== END 2023-05-23 05:25 | disposition home or self-care (01) ==
PROVIDERS: Emergency Provider Student in an Organized Health Care Education/Training Program
DX: B34.9 Viral infection, unspecified (principal); J02.9 Acute pharyngitis, unspecified; Z11.52 Encounter for screening for COVID-19; Z20.822 Contact with and (suspected) exposure to COVID-19
CPT/HCPCS: 0241U; 99283; 99284

== ENCOUNTER → 2023-06-12 08:36 | Outpatient (REF) | payer OTHER, SELFPAY ==
--- NOTE | 2023-06-12 08:38 | HM_ITS ---
Conclusion: 1. Patient was monitored for total period of 2 days and 23 hours 2. Baseline was normal sinus rhythm with average heart of 66 beats per minute 3. No significant arrhythmias or pauses noted 4. No patient reported events MTDD
== END ==
LOC: HO.CARD 08:36
PROVIDERS: Visit Provider Internal Medicine Cardiovascular Disease
DX: R00.2 Palpitations (principal)
CPT/HCPCS: 93242

== ENCOUNTER → 2023-06-12 08:38 | Outpatient (BNV) | payer OTHER, SELFPAY | PROVIDERS: Visit Provider Internal Medicine Cardiovascular Disease | DX: R00.2 Palpitations (principal) | CPT/HCPCS: 93244 ==

== ENCOUNTER 2023-06-28 08:13 | Outpatient (REF) | payer OTHER, SELFPAY ==
[2023-06-28 08:29] LABS: MANUAL DIFF FLAG NO
[2023-06-28 08:42] LABS: Basophils Percent Auto 0.3 % (0-2); Eosinophils Absolute Auto 0.1 X10*3/uL (0.0-0.4); Hematocrit 33.9 % (37.0-47.0); Hemoglobin 10.7 g/dl (12.0-16.0); Imm Gran Abs Auto 0.01 X10*3/uL (0.00-0.03); Imm Gran Pct Auto 0.1 % (0.0-0.4); Lymphocytes Absolute Auto 2.3 X10*3/uL (1.2-4.9); Lymphocytes Percent Auto 33.9 % (20-40); Mean Corpuscular HGB Conc 31.6 g/dl (31.0-35.0); Mean Corpuscular Hemoglobin 23.5 pg (27.0-33.0); Mean Corpuscular Volume 74.3 fL (80.0-98.0); Mean Platelet Volume 9.4 fL (9.4-12.3); Monocytes Absolute Auto 0.6 X10*3/uL (0.1-1.2); Monocytes Percent Auto 9.1 % (2-11); Neutrophils Absolute Auto 3.7 x10*3/uL (2.0-8.3); Neutrophils Percent Auto 55.6 % (45-73); Platelet Count 238 X10*3/uL (160-400); Red Blood Count 4.56 X10*6/uL (4.20-5.50); Red Cell Distribution Width 14.1 % (11.0-16.0); White Blood Count 6.7 X10*3/uL (4.8-10.8)
[2023-06-28 09:13] LABS: Alanine Aminotransferase 30 U/L (0-31); Albumin Level 4.3 g/dL (3.5-5.0); Alkaline Phosphatase 48 U/L (39-117); Anion Gap 14 (12-20); Aspartate Amino Transferase 30 U/L (5-31); Bilirubin Total 0.5 mg/dL (0.0-1.0); Blood Urea Nitrogen 15 mg/dL (9-16); Calcium 9.4 mg/dL (8.4-10.2); Carbon Dioxide 27 mmol/L (22-29); Chloride 105 mmol/L (96-108); Cholesterol 220 mg/dL (<200); Estimated Glomerular Filt Rate > 60; Glucose Random 94 mg/dL (60-115); HDL Cholesterol 68 mg/dL (>40); LDL Cholesterol Calculated 130 mg/dL (<100); Potassium 4.4 mmol/L (3.3-5.1); Sodium 142 mmol/L (135-145); Total Protein 7.8 g/dL (6.5-8.0); Triglycerides 114 mg/dL (<150)
[2023-06-28 09:34] LABS: Vitamin D 25-OH Total 40.6 ng/mL (>30)
== END 2023-06-28 08:14 | disposition home or self-care (01) ==
LOC: HO.LAB 08:13
PROVIDERS: PCP Internal Medicine; Visit Provider Internal Medicine
DX: E78.00 Pure hypercholesterolemia, unspecified (principal); I10 Essential (primary) hypertension; J30.89 Other allergic rhinitis; M79.606 Pain in leg, unspecified; M81.8 Other osteoporosis without current pathological fracture
CPT/HCPCS: 36415; 80053; 80061; 82306; 85025

== ENCOUNTER 2023-07-19 11:26 | Outpatient (AMB) | payer OTHER, SELFPAY ==
[2023-07-19 11:30] VITALS: BP 129/66; PULSE 66; BMI 20.1
--- NOTE | 2023-07-19 11:30 | MHC.OFFVIS ---
Vital Signs 07/19/23 11:30 Height 5 ft 3 in Weight 113 lb 12.136 oz BMI 20.1 BP 129/66 Blood Pressure Location Lt brachial Position Sitting Pulse 66 Intake Visit Reasons: pt req appointment Intake Note: Daily returns in follow up of GERD. CC: Patient c/o abdominal sensation of fullness, occasional constipation, heartburn, and weakness. She states she feels a strange taste in her mouth. 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 if this is related. She has sensitivity at L5-S1 and in the SI joints. She spoke with her glass calibrator re: BP but they did not feel that any adjustment was needed or that it was r/t her leg pain. She is now moving her bowels very well with 2 magnesium a day. She feels like my digestion is slow but still her appetite is good and she does very well with the IB guard and the probiotic. She was questioning if she needed the barium swallow, and I explain why I would like to have it given her hx of esophageal spasm. This is a long appt because of a misunderstanding/missed documentation on her file. ROV 3 mos. BARIUM SWALLOW Rescheduled fro end of July 2023 TODAY'S VISIT Citizen Of [place] #Eva Live She says she has not been well since I last saw her. She is having a lot of fullness sensation in her midline upper abdomen adn seh has not been able to eat. This is over the past couple of weeks. This was of fairly sudden onset. She thought that it started after eating a candy with coconut. She denies any F/C, her past CIC has improved, no N/V. She denies any medication change, preceding illness, sick contacts or diet changes. The pain will move to the left mid abd/flank, the pain improves after a BM. Probiotics also improve her sx. Passing gas helps a lot too. She has a burning sensation on her tongue and she feels her saliva is thick and her breath is foul. NO recent abx tx. She IS on a fluticasone inhaler. Getting CT, TSH. Also trial of simethicone, diflucan and nystatin swish and spit. She continues on omeprazole 20mg qd. ROV 2 weeks. PFSH Medical History Vitamin D deficiency Multinodular thyroid Surgical History H/O blepharoplasty History of esophagogastroduodenoscopy (EGD) History of colonoscopy Family History Father Leukemia Mother Colon cancer Sister Diabetes Hypertension Social History Household Members: Children Housing: Apartment Are you a primary healthcare educator to a significant other at home: No Do you presently have visiting nurse or other home services: No Alcohol intake: current Alcohol intake frequency: does not drink Patient Tobacco Use Status: Never used Tobacco service: No Current occupational status: employed Review of Systems Const Denies fatigue, Denies fever(s), Denies night sweats, Denies poor appetite and Denies weight loss ENT Reports Normal hearing present, Denies dental pain, Denies dysphagia, Denies hearing loss, Denies mouth pain, Denies odynophagia, Denies throat swelling, Denies tongue swelling and Reports other (Dentition adequate) Card Reports no additional complaints Resp Reports no additional complaints GI Details: Reports abdominal pain, Denies melena, Reports bloating, Denies hematochezia, Reports constipation, Denies GI cramping, Denies dysphagia, Denies excessive flatus, Denies early satiety, Reports heartburn, Denies diarrhea, Denies nausea, Denies odynophagia, Denies vomiting and Denies hematemesis Skin/Breast Denies pruritus, Denies lesions, Denies rash and Denies jaundice Neuro Reports Normal hearing present and Denies Abnormal speech present Endo Denies fatigue Aller/Immun Denies throat swelling and Denies tongue swelling Physical Exam Vital Signs: Last Vital Signs Pulse 66 07/19/23 11:30 BP 129/66 07/19/23 11:30 BMI result Body Mass Index 20.1 Const General: cooperative, no acute distress, well developed and well groomed Nutritional Appearance: average body habitus and well nourished Orientation/consciousness: oriented to person, oriented to place and oriented to time Limitations: language barrier HEENT Head: Yes normocephalic and Yes atraumatic Mouth: tongue abnormal (Red and irritated) Eyes General: appearance normal, both eyes and all related structures Pupils: Equal, round and reactive pupils present Neck Neck: Yes normal visual inspection and Yes no lymphadenopathy Thyroid: Thyroid normal Resp Effort & Inspection: normal respiratory effort and able to speak in complete sentences Auscultation: clear to auscultation bilaterally Cardio Rate: regular rate Rhythm: regular rhythm Heart sounds: Normal, physiologic split S2 sound present Peripheral pulses: radial pulses present and posterior tibial pulses present GI Inspection: No distended and No Abdominal panniculus present Palpation (GI): Soft to palpation, Tenderness to palpation present (GI), no guarding, not rigid and No hepatosplenomegaly present Percussion: Yes normal to percussion Auscultation: normal bowel sounds Rectal Exam - Female: deferred Skin General skin exam: no rashes or lesions noted, turgor normal, skin not dry, no jaundice, No spider nevi and no striae Rashes: no rashes Nails: normal Neuro General: oriented to person, oriented to place and oriented to time Cranial nerves: Yes Equal, round and reactive pupils present and Yes Normal hearing present Speech: No Abnormal speech present Extrem General: Yes normal to inspection, No clubbing, No cyanosis and No edema Psych Appearance: grossly normal and well kempt Mental Status: mental status grossly normal Speech and movement: Normal speech and movement present Affect: normal affect Attitude: cooperative Thought process: Normal thought process present and not confabulating Thought content: Normal thought content present Insight: Limited insight present (Psych) Judgement: Limited judgement present (Psych) Assessment & Plan Assessment & Plan (1) GERD (gastroesophageal reflux disease): Code(s): K21.9 - Gastro-esophageal reflux disease without esophagitis Category: Medical (2) Constipation: Code(s): K59.00 - Constipation, unspecified Category: Medical (3) Family history of colon cancer: Comment: Due for repeat scope in 2024 Code(s): Z80.0 - Family history of malignant neoplasm of digestive organs Category: Medical (4) Oral thrush: Code(s): B37.0 - Candidal stomatitis Category: Medical (5) Generalized abdominal pain: Code(s): R10.84 - Generalized abdominal pain Category: Medical Plan Citizen Of [place] #Eva Reardon She says she has not been well since I last saw her. She is having a lot of fullness sensation in her midline upper abdomen and she has not been able to eat. This is over the past couple of weeks. This was of fairly sudden onset. She thought that it started after eating a candy with coconut. She denies any F/C, her past CIC has improved, no N/V. She denies any medication change, preceding illness, sick contacts or diet changes. The pain will move to the left mid abd/flank, the pain improves after a BM. Probiotics also improve her sx. Passing gas helps a lot too. She has a burning sensation on her tongue and she feels her saliva is thick and her breath is foul. NO recent abx tx. She IS on a fluticasone inhaler. Getting CT, TSH. Also trial of simethicone, diflucan and nystatin swish and spit. She continues on omeprazole 20mg qd. ROV 2 weeks. Orders: Orders CT abdomen pelvis w IV con 07/19/23 R10.84 - Generalized abdominal pain Blood Urea Nitrogen 07/19/23 R10.84 - Generalized abdominal pain UA CC w/rflx Micro + Cult 07/19/23 R10.84 - Generalized abdominal pain TSH reflex Free T4 07/19/23 R10.84 - Generalized abdominal pain Creatinine 07/19/23 R10.84 - Generalized abdominal pain Medications: New fluconazole (Diflucan) 100 mg PO DAILY 5 tabs 0RF 5 days B37.0 - Candidal stomatitis nystatin swish and spit orally 3 times a day; swish and swallow 60 mL 0RF B37.0 - Candidal stomatitis simethicone after meals 180 mg PO QID 120 caps 3RF 30 days Coding Level of Care Code Est Pt Level 4 (13169) Diagnoses GERD (gastroesophageal reflux disease) K21.9 Constipation K59.00 Family history of colon cancer Z80.0 Oral thrush B37.0 Generalized abdominal pain R10.84
== END 2023-07-19 12:16 | disposition home or self-care (01) ==
PROVIDERS: PCP Internal Medicine; Visit Provider Nurse Practitioner
DX: K21.9 Gastro-esophageal reflux disease without esophagitis (principal); K59.00 Constipation, unspecified; Z80.0 Family history of malignant neoplasm of digestive organs; B37.0 Candidal stomatitis; R10.84 Generalized abdominal pain
CPT/HCPCS: 99214

== ENCOUNTER 2023-07-19 11:26 | Outpatient (REF) | payer OTHER, SELFPAY ==
[2023-07-19 14:09] LABS: Appearance Urine Clear; Color Urine Yellow; Glucose Urine UA Negative (Negative); Leukocyte Esterase Urine Negative (Negative); Nitrite Urine Negative (Negative); PH 7.5 (5.0-9.0); UMIC TRIGGER UACC YES; Urine Blood Trace (Negative); Urine Ketones Negative (Negative); Urine Protein Negative (Neg-Trace)
[2023-07-19 14:14] LABS: Bacteria Urine None Seen (None Seen); Hyaline Casts Urine 0-2 /LPF (0-2); Squamous Epithelial Cell Urine 0-2 /HPF (0-2); WBC Urine 0-5 /HPF (0-5)
[2023-07-19 14:46] LABS: TSH reflex Free T4 1.35 uIU/mL (0.32-4.0)
[2023-07-19 15:00] LABS: Blood Urea Nitrogen 14 mg/dL (9-16); Estimated Glomerular Filt Rate > 60
== END 2023-07-19 11:27 | disposition home or self-care (01) ==
LOC: HO.LAB 11:26
PROVIDERS: PCP Internal Medicine; Visit Provider Nurse Practitioner
DX: R10.84 Generalized abdominal pain (principal); K21.9 Gastro-esophageal reflux disease without esophagitis; K59.00 Constipation, unspecified; B37.0 Candidal stomatitis; Z80.0 Family history of malignant neoplasm of digestive organs
CPT/HCPCS: 36415; 81001; 81003; 82565; 84443; 84520; 99212

== ENCOUNTER 2023-08-01 10:25 | Outpatient (AMB) | payer OTHER, SELFPAY ==
--- NOTE | 2023-08-01 10:37 | A.OFFVIS_ITS ---
Vital Signs 08/01/23 10:38 Height 5 ft 3 in Weight 116 lb 13.52 oz BMI 20.7 BP 137/71 Blood Pressure Location Rt brachial Position Sitting Pulse 64 Intake Visit Reasons: 2 week follow up Intake Note: Daily returns in follow up of labs and GERD. CC: Patient states that she is feeling a lot better after taking medications given at last visit. 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0 - Candidal stomatitis Category: Medical (5) Generalized abdominal pain: Code(s): R10.84 - Generalized abdominal pain Category: Medical Plan Swiss #Eva Live She says she has not been well since I last saw her. She is having a lot of fullness sensation in her midline upper abdomen and she has not been able to eat. This is over the past couple of weeks. This was of fairly sudden onset. She thought that it started after eating a candy with coconut. She denies any F/C, her past CIC has improved, no N/V. She denies any medication change, preceding illness, sick contacts or diet changes. The pain will move to the left mid abd/flank, the pain improves after a BM. Probiotics also improve her sx. Passing gas helps a lot too. She has a burning sensation on her tongue and she feels her saliva is thick and her breath is foul. NO recent abx tx. She IS on a fluticasone inhaler. Getting CT, TSH. Also trial of simethicone, diflucan and nystatin swish and spit. She continues on omeprazole 20mg qd. ROV 2 weeks. Orders: Orders CT abdomen pelvis w IV con 04/26/24 R10.84 - Generalized abdominal pain Blood Urea Nitrogen 07/19/23 R10.84 - Generalized abdominal pain UA CC w/rflx Micro + Cult 07/19/23 R10.84 - Generalized abdominal pain TSH reflex Free T4 07/19/23 R10.84 - Generalized abdominal pain Creatinine 07/19/23 R10.84 - Generalized abdominal pain Medications: New fluconazole (Diflucan) 100 mg PO DAILY 5 tabs 0RF 5 days B37.0 - Candidal stomatitis nystatin swish and spit orally 3 times a day; swish and swallow 60 mL 0RF B37.0 - Candidal stomatitis simethicone after meals 180 mg PO QID 120 caps 3RF 30 days LABS: Laboratory Tests 07/19/23 12:52 TSH 1.35 07/19/23-[address]: June Osorio MD ORDERED: [facility] w Micros QUERIES: Collection Date: 07/19/23 Collection Time: 1230 Source: Urine, Clean Catch Test Result Flag Reference Ur Color Yellow Ur Appear Clear PH 7.5 5.0-9.0 Ur Glu Negative Negative mg/dL Urine Blood Trace H Negative Spec Hyde Ur 1.010 1.005-1.025 Urine Protein Negative Neg-Trace mg/dL Urine Ketones Negative Negative mg/dL Ur Nitrite Negative Negative Ur Charley Esterase Negative Negative Ur RBC 3-5 H 0-2 /HPF Ur WBC 0-5 0-5 /HPF Ur Squam Epi 0-2 0-2 /HPF Ur Bact None Seen None Seen Ur Hyaline Manager Athletics 0-2 0-2 /LPF CT ABDOMEN PELVIS ( Ajust had one 01/2023) 02/05/23 FINDINGS: LUNG BASES: The visualized lung bases are unremarkable. Nonenlarged heart. No pericardial effusion. LIVER, GALLBLADDER, AND BILIARY TREE: The liver is normal in size, shape, and attenuation. No focal hepatic lesion or biliary ductal dilatation is present. The gallbladder is unremarkable with no evidence of radiopaque gallstones, gallbladder wall thickening, or obvious pericholecystic inflammatory changes. PANCREAS: Unremarkable. SPLEEN: Unremarkable. ADRENAL GLANDS: Unremarkable. KIDNEYS AND URETERS: The kidneys are normal in size, shape, and attenuation. No hydronephrosis or hydroureter. Punctate bilateral renal calculi. No perinephric stranding. BLADDER: Unremarkable. GASTROINTESTINAL TRACT: Stomach is not ideally distended. Nonobstructive bowel pattern. Appendix not seen. Moderately severe to severe fecal retention. ABDOMINAL WALL: Small fat filled umbilical hernia. No bowel contents. LYMPH NODES: Normal. VASCULAR: Atherosclerotic calcifications nonaneurysmal aorta. The inferior vena cava are normal caliber. PELVIC VISCERA: Unremarkable. Pelvic phleboliths. OSSEOUS STRUCTURES: Unremarkable. CT/CT abdomen pelvis wo IV con IMPRESSION: Fat filled umbilical hernia with no bowel contents. Punctate bilateral nonobstructing renal calculi. TODAY'S VISIT Swiss #Serafin Live She did not find the simethicone helpful, but taking the diflucan has solved the tongue burning and taste and the upper abdominal bloating. This sounds like it was r/t systemic GI nelsy. She continue omeprazole prn and magnesium and likes the OTC IB Guard. Since the simethicone has not helped she can stop this. We will cancel the CT that was scheduled for September. ROV 4 after barium swallow 08/20 [facility] Medical History Vitamin D deficiency Multinodular thyroid Surgical History H/O blepharoplasty History of esophagogastroduodenoscopy (EGD) History of colonoscopy Family History Father Leukemia Mother Colon cancer Sister Diabetes Hypertension Social History Household Members: Children Housing: Apartment Are you a primary healthcare liaison to a significant other at home: No Do you presently have visiting nurse or other home services: No Alcohol intake: current Alcohol intake frequency: does not drink Patient Tobacco Use Status: Never used Tobacco service: No Current occupational status: employed Review [employer] Systems Const Denies fatigue, Denies fever(s), Denies night sweats, Denies poor appetite and Denies weight loss ENT Reports Normal hearing present, Denies dental pain, Denies dysphagia, Denies hearing loss, Denies mouth pain, Denies odynophagia, Denies throat swelling, Denies tongue swelling and Reports other (Dentition adequate) Card Reports no additional complaints Resp Reports no additional complaints GI Details: Denies abdominal pain, Denies melena, Denies bloating, Denies hematochezia, Reports constipation, Denies GI cramping, Denies dysphagia, Denies excessive flatus, Denies early satiety, Reports heartburn, Denies diarrhea, Denies nausea, Denies odynophagia, Denies vomiting and Denies hematemesis Skin/Breast Denies pruritus, Denies lesions, Denies rash and Denies jaundice Neuro Reports Normal hearing present and Denies Abnormal speech present Endo Denies fatigue Aller/Immun Denies throat swelling and Denies tongue swelling Physical Exam Vital Signs: Last Vital Signs Pulse 64 08/01/23 10:38 BP 137/71 08/01/23 10:38 BMI result Body Mass Index 20.7 Const General: cooperative, no acute distress, well developed and well groomed Nutritional Appearance: average body habitus and well nourished Orientation/consciousness: oriented to person, oriented to place and oriented to time Limitations: No language barrier HEENT Head: Yes normocephalic and Yes atraumatic Eyes General: appearance normal, both eyes and all related structures Pupils: Equal, round and reactive pupils present Neck Neck: Yes normal visual inspection and Yes no lymphadenopathy Thyroid: Thyroid normal Resp Effort & Inspection: normal respiratory effort and able to speak in complete sentences Auscultation: clear to auscultation bilaterally Cardio Rate: regular rate Rhythm: regular rhythm Heart sounds: Normal, physiologic split S2 sound present Peripheral pulses: radial pulses present and posterior tibial pulses present GI Inspection: No distended and No Abdominal panniculus present Palpation (GI): Soft to palpation, nontender, no guarding, not rigid and No hepatosplenomegaly present Percussion: Yes normal to percussion Auscultation: normal bowel sounds Rectal Exam - Female: deferred Skin General skin exam: no rashes or lesions noted, turgor normal, skin not dry, no jaundice, No spider nevi and no striae Rashes: no rashes Nails: normal Neuro General: oriented to person, oriented to place and oriented to time Cranial nerves: Yes Equal, round and reactive pupils present and Yes Normal hearing present Speech: No Abnormal speech present Extrem General: Yes normal to inspection, No clubbing, No cyanosis and No edema Psych Appearance: grossly normal and well kempt Mental Status: mental status grossly normal Speech and movement: Normal speech and movement present Affect: normal affect Attitude: cooperative Thought process: Normal thought process present and not confabulating Thought content: Normal thought content present Insight: Limited insight present (Psych) Judgement: Limited judgement present (Psych) Assessment & Plan Assessment & Plan (1) GERD (gastroesophageal reflux disease): Code(s): K21.9 - Gastro-esophageal reflux disease without esophagitis Category: Medical (2) Constipation: Code(s): K59.00 - Constipation, unspecified Category: Medical Plan [place] #Tachira Live She did not find the simethicone helpful, but taking the diflucan has solved the tongue burning and taste and the upper abdominal bloating. This sounds like it was r/t systemic GI nelsy. She continue omeprazole prn and magnesium and likes the OTC IB Guard. Since the simethicone has not helped she can stop this. We will cancel the CT that was scheduled for September. ROV 4 after barium swallow 08/20 Coding Level of Care Code Est Pt Level 3 (37441) Diagnoses GERD (gastroesophageal reflux disease) K21.9 Constipation K59.00
[2023-08-01 10:38] VITALS: BP 137/71; PULSE 64; BMI 20.7
== END 2023-08-01 10:59 | disposition home or self-care (01) ==
PROVIDERS: PCP Internal Medicine; Visit Provider Nurse Practitioner
DX: K21.9 Gastro-esophageal reflux disease without esophagitis (principal); K59.00 Constipation, unspecified
CPT/HCPCS: 99213

== ENCOUNTER → 2023-08-01 10:25 | Outpatient (BNVA) | payer OTHER, SELFPAY | PROVIDERS: PCP Internal Medicine; Visit Provider Nurse Practitioner | DX: K21.9 Gastro-esophageal reflux disease without esophagitis (principal); K59.00 Constipation, unspecified | CPT/HCPCS: 99212 ==

== ENCOUNTER 2023-08-20 11:23 | Outpatient (AMB) | payer OTHER, SELFPAY ==
--- NOTE | 2023-08-20 11:24 | A.OFFVIS_ITS ---
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 States she has pain in both legs. It affects her walking. No redness or swelling. 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 Her main complaint is that she does have some calf pain. It has been a persistent posterior calf pain that has been a source of issues for her. It had actually been exacerbated by a statin which she was subsequently Nola taken off of. She reports that it did improve but she does still have that persistent posterior calf pain. It is painful on pressure and palpation. She d oes not notice any difference with ambulation. She now presents for vascular evaluation. [facility], [facility] Medical History Vitamin D deficiency Multinodular thyroid Surgical History H/O blepharoplasty History of esophagogastroduodenoscopy (EGD) History of colonoscopy Family History Father Leukemia Mother Colon cancer Sister Diabetes Hypertension Social History Household Members: Children Housing: Apartment Are you a primary plant care worker to a significant other at home: No Do you presently have visiting nurse or other home services: No Alcohol intake: current Alcohol intake frequency: does not drink Patient Tobacco Use Status: Never used Tobacco service: No Current occupational status: employed Review of Systems Const Reports as per HPI ENT Reports no additional complaints Card Denies chest pain, Denies chest pain at rest and Denies chest pain with activity Resp Denies chest congestion and Denies cough GI Reports no additional complaints Musc Details: pain over varicosities, aching of lower extremities, swelling, cramping, heaviness and tiredness, itching Denies abnormal gait Skin/Breast Reports pruritus and Denies wounds Neuro Reports no additional complaints and Denies abnormal gait Psych Denies no additional complaints Physical Exam Const General: cooperative, healthy appearing and comfortable Orientation/consciousness: oriented to person, oriented to place and oriented to time Neck Carotids: no bruits Chest Chest palpation & inspection: normal inspection of the chest and normal palpation of entire chest wall Resp Effort & Inspection: normal respiratory effort and able to speak in complete sentences Cardio Rate: regular rate Heart sounds: S1 normal heart sound present and S2 normal heart sound present Peripheral pulses: Peripheral pulses 2+ throughout GI Inspection: Yes normal to inspection Skin Other: +1 edema, lateral spider telangiectasias only General skin exam: dry skin Neuro General: oriented to person, oriented to place and oriented to time Extrem Right lower extremity: full ROM, normal capillary refill and edema Left lower extremity: full ROM, normal capillary refill and edema Psych Mental Status: mental status grossly normal Assessment & Plan Assessment & Plan (1) Varicose veins of right lower extremity with inflammation: Code(s): I83.11 - Varicose veins of right lower extremity with inflammation Category: Medical Plan: In short patient is experiencing lower extremity pain. It does not appear to be arterial in nature as the patient did have palpable pulses. In addition the patient has some lateral leg pain and posterior calf pain. This does appear to be more musculoskeletal in nature. I did take the liberty of ordering venous insufficiency testing to rule that out. She will follow up with us after testing. Thank you for allowing us to assist in her care. If there are any questions or concerns please do not hesitate to contact us. Orders: Orders US venous duplex LE BI 1 Week I83.11 - Varicose veins of right lower extremity with inflammation Coding Level of Care Code Est Pt Level 4 (32409) Diagnoses Varicose veins of right lower extremity with inflammation I83.11
== END 2023-08-20 11:44 | disposition home or self-care (01) ==
PROVIDERS: PCP Internal Medicine; Visit Provider Surgery Vascular Surgery
DX: I83.11 Varicose veins of right lower extremity with inflammation (principal)
CPT/HCPCS: 99213

== ENCOUNTER → 2023-08-20 11:23 | Outpatient (BNVA) | payer OTHER, SELFPAY | PROVIDERS: PCP Internal Medicine; Visit Provider Surgery Vascular Surgery | DX: I83.11 Varicose veins of right lower extremity with inflammation (principal) | CPT/HCPCS: 99212 ==

== ENCOUNTER 2023-08-21 07:49 | Outpatient (REF) | payer OTHER, SELFPAY ==
--- NOTE | ~2023-08-21 | FL_ITS ---
EXAMINATION: XR FLUOROSCOPY UPPER GI WITH AIR CLINICAL INFORMATION: Dysphagia COMPARISON: None TECHNIQUE: Fluoroscopic air contrast upper GI examination was performed utilizing standard techniques with thin and thick barium and effervescent granules. Numerous spot images were obtained. FINDINGS: Lateral cine images of the oropharynx and hypopharynx demonstrate normal swallow mechanism with normal epiglottic inversion and soft palate elevation. No tracheal penetration, glottic or subglottic aspiration identified. No nasopharyngeal reflux present. Hypopharyngeal structures appear normal without evidence of mass or diverticulum. Mild cricopharyngeal achalasia is present. Dual and single contrast images of the esophagus demonstrate a normal caliber, contour, and mucosal pattern. No evidence of stricture, mass, or ulcerations identified. Esophageal peristalsis was mildly disorganized. A very small type I hiatal hernia is present. No significant gastroesophageal reflux was seen during the course of the examination and on reflux views. Dual contrast and single contrast images of the stomach demonstrated normal contour. There is thickening of the rugal folds, there is evidence for mild thickening of the mucosal area gastricae, and there are several foci of subtle contrast pooling in the distal body and antrum suggesting submucosal aphthous ulcers. Findings suggesting gastritis. No duodenal abnormality grossly although only a small amount of contrast progressed into the third segment of the duodenum. No malrotation. FLUOROSCOPY TIME: 5 minutes 10 seconds Number of Spot Images: 15 Number of Cine: 14 DOSE AREA PRODUCT: 1935 uGy-m2 (microgray-meter squared) FL/FL barium swallow with air IMPRESSION: 1. Mild cricopharyngeal achalasia 2. Very small type I hiatal hernia 3. Mildly disorganized esophageal peristalsis 4. Mild delay in gastric emptying, with only small amount of barium observed progressing into the third portion of the duodenum at the end of the examination. Uncertain if this is clinically significant. 5. Findings suggesting gastritis. This procedure was performed by Jerrell Barraza PA-C, and supervised by Dr. Barnard
== END 2023-08-21 07:50 | disposition home or self-care (01) ==
LOC: HO.XRAY 07:49
PROVIDERS: PCP Internal Medicine; Visit Provider Nurse Practitioner
DX: R13.10 Dysphagia, unspecified (principal)
CPT/HCPCS: 74220; 74221

== ENCOUNTER → 2023-08-21 07:50 | Outpatient (BNV) | payer OTHER, SELFPAY | PROVIDERS: PCP Internal Medicine; Visit Provider Physician Assistant Surgical | DX: R13.10 Dysphagia, unspecified (principal) | CPT/HCPCS: 74246 ==

== ENCOUNTER 2023-08-30 10:23 | Outpatient (REF) | payer OTHER, SELFPAY ==
--- NOTE | ~2023-08-30 | US_ITS ---
EXAMINATION: US LOWER EXTREMITY VENOUS (REFLUX EXAM), BILATERAL CLINICAL INDICATION: Chronic venous insufficiency with lower extremity of varicose veins with inflammation COMPARISON: None. TECHNIQUE: Color flow triplex imaging and compression Doppler was performed to evaluate both the deep and the superficial systems bilaterally. To evaluate the superficial system, the examination was performed in the upright position. Color-flow Doppler ultrasound and compression ultrasound were utilized. In addition, maneuvers were utilized to demonstrate reflux. FINDINGS: 1. DEEP VENOUS ULTRASOUND OF THE RIGHT LOWER EXTREMITY: Common Femoral Vein: Compressible, normal respiratory variation and augmented flow. Femoral Vein: Compressible, normal color flow and augmentation. Popliteal Vein: Compressible, normal augmentation. Deep Reflux: There is no evidence of reflux in the deep system in either the common femoral vein, superficial femoral or the popliteal vein. There is no evidence of a Hatch's cyst. 2. SUPERFICIAL ULTRASOUND WITH DOPPLER OF RIGHT LOWER EXTREMITY: GREAT SAPHENOUS VEIN: Saphenofemoral Junction: 0.8 cm; Reflux: 524 ms Proximal Thigh: 0.2 cm; Reflux: 0 ms Mid Thigh: 0.3 cm; Reflux: 0 ms Above Knee: 0.3 cm; Reflux: 0 ms At Knee: 0.3 cm; Reflux: 0 ms Below Knee: 0.2 cm; Reflux: 0 ms Mid Calf: 0.2 cm; Reflux: 0 ms Ankle: 0.2 cm; Reflux: 0 ms DUPLICATED MEDIAL GREAT SAPHENOUS VEIN: Diameter: 0.2 cm Reflux: NA DUPLICATED LATERAL GREAT SAPHENOUS VEIN: Diameter: None imaged Reflux: NA SMALL SAPHENOUS VEIN: Saphenopopliteal Junction: 0.1 cm; Reflux: 0 ms Mid: 0.3 cm; Reflux: 0 ms Distal: 0.2 cm; Reflux: 0 ms VEIN OF GIACOMINI: Size: NA Reflux: NA PERFORATORS: Location: None imaged Size: NA Reflux: NA VARICOSITIES: Location: None significant Size: NA Reflux: NA 3. DEEP VENOUS ULTRASOUND OF THE LEFT LOWER EXTREMITY: Common Femoral Vein: Compressible, normal respiratory variation and augmented flow. Femoral Vein: Compressible, normal color flow and augmentation. Popliteal Vein: Compressible, normal augmentation. Deep Reflux: There is no evidence of reflux in the deep system in either the common femoral vein, superficial femoral or the popliteal vein. There is no evidence of a Hatch's cyst. 4. SUPERFICIAL ULTRASOUND WITH DOPPLER OF LEFT LOWER EXTREMITY: GREAT SAPHENOUS VEIN: Saphenofemoral Junction: 0.7 cm; Reflux: 0 ms Proximal Thigh: 0.2 cm; Reflux: 0 ms Mid Thigh: 0.2 cm; Reflux: 0 ms Above Knee: 0.2 cm; Reflux: 0 ms At Knee: 0.4 cm; Reflux: 0 ms Below Knee: 0.1 cm; Reflux: 0 ms Mid Calf: 0.1 cm; Reflux: 0 ms Ankle: 0.1 cm; Reflux: 0 ms DUPLICATED MEDIAL GREAT SAPHENOUS VEIN: Diameter: None imaged Reflux: NA DUPLICATED LATERAL GREAT SAPHENOUS VEIN: Diameter: None imaged Reflux: NA SMALL SAPHENOUS VEIN: Saphenopopliteal Junction: 0.2 cm; Reflux: 0 ms Proximal: 0.2 cm; Reflux: 0 ms Distal: 0.2 cm; Reflux: 0 ms VEIN OF GIACOMINI: Size: NA Reflux: NA PERFORATORS: Location: None imaged Size: NA Reflux: NA VARICOSITIES: Location: None significant Size: NA Reflux: NA US/US venous duplex LE BI IMPRESSION: Right: Mild reflux at the saphenofemoral junction. No significant reflux throughout the great saphenous vein in the thigh and calf. No significant reflux in the small saphenous vein. Left: No significant venous insufficiency or reflux in the left great saphenous vein or small saphenous vein
== END 2023-08-30 10:24 | disposition home or self-care (01) ==
LOC: HO.US 10:23
PROVIDERS: PCP Internal Medicine; Visit Provider Surgery Vascular Surgery
DX: I83.11 Varicose veins of right lower extremity with inflammation (principal)
CPT/HCPCS: 93970

== ENCOUNTER 2023-09-18 08:29 | Outpatient (AMB) | payer OTHER, SELFPAY ==
[2023-09-18 08:40] VITALS: BP 111/71; PULSE 68; BMI 20.3
--- NOTE | 2023-09-18 08:40 | A.OFFVIS_ITS ---
Vital Signs 09/18/23 08:40 Height 5 ft 3 in Weight 114 lb 13.773 oz BMI 20.3 BP 111/71 Blood Pressure Location Lt brachial Position Sitting Pulse 68 Intake Visit Reasons: Follow up barium swallow Intake Note: Daily returns to in office follow up of barium swallow. CC: Patient c/o right ear pain since Saturday. She states my digestion still slow . Denies other GI symptoms today. Design Intern Required: Yes Accompanied by: Self / Same As Patient Allergies Iodinated Contrast Media [IV Contrast Dye] Allergy (Verified 10/08/23 10:34) Unconscious HPI HPI Follow up barium swallow: Details: Assessment & Plan (1) GERD (gastroesophageal reflux disease): Code(s): K21.9 - Gastro-esophageal reflux disease without esophagitis Category: Medical (2) Constipation: Code(s): K59.00 - Constipation, unspecified Category: Medical Plan Brazilian #[employer] Live She did not find the simethicone helpful, but taking the diflucan has solved the tongue burning and taste and the upper abdominal bloating. This sounds like it was r/t systemic GI nelsy. She continue omeprazole prn and magnesium and likes the OTC IB Guard. Since the simethicone has not helped she can stop this. We will cancel the CT that was scheduled for September. ROV 4 after barium swallow 08/20 BARIUM SWALLOW 09/09/23 FINDINGS: Lateral cine images of the oropharynx and hypopharynx demonstrate normal swallow mechanism with normal epiglottic inversion and soft palate elevation. No tracheal penetration, glottic or subglottic aspiration identified. No nasopharyngeal reflux present. Hypopharyngeal structures appear normal without evidence of mass or diverticulum. Mild cricopharyngeal achalasia is present. Dual and single contrast images of the esophagus demonstrate a normal caliber, contour, and mucosal pattern. No evidence of stricture, mass, or ulcerations identified. Esophageal peristalsis was mildly disorganized. A very small type I hiatal hernia is present. No significant gastroesophageal reflux was seen during the course of the examination and on reflux views. Dual contrast and single contrast images of the stomach demonstrated normal contour. There is thickening of the rugal folds, there is evidence for mild thickening of the mucosal area gastricae, and there are several foci of subtle contrast pooling in the distal body and antrum suggesting submucosal aphthous ulcers. Findings suggesting gastritis. No duodenal abnormality grossly although only a small amount of contrast progressed into the third segment of the duodenum. No malrotation. FLUOROSCOPY TIME: 5 minutes 10 seconds Number of Spot Images: 15 Number of Cine: 14 DOSE AREA PRODUCT: 1935 uGy-m2 (microgray-meter squared) FL/FL barium swallow with air IMPRESSION: 1. Mild cricopharyngeal achalasia 2. Very small type I hiatal hernia 3. Mildly disorganized esophageal peristalsis 4. Mild delay in gastric emptying, with only small amount of barium observed progressing into the third portion of the duodenum at the end of the examination. Uncertain if this is clinically significant. 5. Findings suggesting gastritis. CORRESPONDENCE On 09/02/23 @ 10:43 Christina Shukla Wrote To SudheerNubia (2) Pt follow up on 09/05/23. I called radiology to inquire about barium swallow report and they will look into it. I will follow up on it on Saturday in case I need to r/s. TODAY'S VISIT Brazilian #Serafin Live She felt that Diflucan resolved her problems. She continues to do well on her medications, despite barium swallow results she denies any dysphgia or N/V. She offers doorknob complaint of left ear pain and vertigo. ROV 6 mos. PFSH Medical History Vitamin D deficiency Multinodular thyroid Surgical History H/O blepharoplasty History of esophagogastroduodenoscopy (EGD) History of colonoscopy Family History Father Leukemia Mother Colon cancer Sister Diabetes Hypertension Social History Household Members: Children Housing: Apartment Are you a primary care administrative tech to a significant other at home: No Do you presently have visiting nurse or other home services: No Alcohol intake: current Alcohol intake frequency: does not drink Patient Tobacco Use Status: Never used Tobacco service: No Current occupational status: employed Review of Systems Const Denies fatigue, Denies fever(s), Denies night sweats, Denies poor appetite and Denies weight loss ENT Reports Normal hearing present, Denies dental pain, Denies dysphagia, Denies hearing loss, Denies mouth pain, Denies odynophagia, Denies throat swelling, Denies tongue swelling and Reports other (Dentition adequate) Card Reports no additional complaints Resp Reports no additional complaints GI Details: Denies abdominal pain, Denies melena, Denies bloating, Denies hematochezia, Denies constipation, Denies GI cramping, Denies dysphagia, Denies excessive flatus, Denies early satiety, Reports heartburn, Denies diarrhea, Denies nausea, Denies odynophagia, Denies vomiting and Denies hematemesis Skin/Breast Denies pruritus, Denies lesions, Denies rash and Denies jaundice Neuro Reports Normal hearing present and Denies Abnormal speech present Endo Denies fatigue Aller/Immun Denies throat swelling and Denies tongue swelling Physical Exam Vital Signs: Last Vital Signs Pulse 68 09/18/23 08:40 BP 111/71 09/18/23 08:40 BMI result Body Mass Index 20.3 Const General: cooperative, no acute distress, well developed and well groomed Nutritional Appearance: average body habitus and well nourished Orientation/consciousness: oriented to person, oriented to place and oriented to time Limitations: language barrier HEENT Head: Yes normocephalic and Yes atraumatic Ears: TM normal on the right and left TM abnormal (full but no signs bacterial infection, ? fungal) Eyes General: appearance normal, both eyes and all related structures Pupils: Equal, round and reactive pupils present Neck Neck: Yes normal visual inspection and Yes no lymphadenopathy Thyroid: Thyroid normal Resp Effort & Inspection: normal respiratory effort and able to speak in complete sentences Auscultation: clear to auscultation bilaterally Cardio Rate: regular rate Rhythm: regular rhythm Heart sounds: Normal, physiologic split S2 sound present Peripheral pulses: radial pulses present and posterior tibial pulses present GI Inspection: No distended and No Abdominal panniculus present Palpation (GI): Soft to palpation, nontender, no guarding, not rigid and No hepatosplenomegaly present Percussion: Yes normal to percussion Auscultation: normal bowel sounds Rectal Exam - Female: deferred Skin General skin exam: no rashes or lesions noted, turgor normal, skin not dry, no jaundice, No spider nevi and no striae Rashes: no rashes Nails: normal Neuro General: oriented to person, oriented to place and oriented to time Cranial nerves: Yes Equal, round and reactive pupils present and Yes Normal hearing present Speech: No Abnormal speech present Extrem General: Yes normal to inspection, No clubbing, No cyanosis and No edema Psych Appearance: grossly normal and well kempt Thought process: Normal thought process present and not confabulating Thought content: Normal thought content present Insight: Limited insight present (Psych) Judgement: Limited judgement present (Psych) Results Reviewed Results Reviewed: BARIUM SWALLOW 09/09/23 FINDINGS: Lateral cine images of the oropharynx and hypopharynx demonstrate normal swallow mechanism with normal epiglottic inversion and soft palate elevation. No tracheal penetration, glottic or subglottic aspiration identified. No nasopharyngeal reflux present. Hypopharyngeal structures appear normal without evidence of mass or diverticulum. Mild cricopharyngeal achalasia is present. Dual and single contrast images of the esophagus demonstrate a normal caliber, contour, and mucosal pattern. No evidence of stricture, mass, or ulcerations identified. Esophageal peristalsis was mildly disorganized. A very small type I hiatal hernia is present. No significant gastroesophageal reflux was seen during the course of the examination and on reflux views. Dual contrast and single contrast images of the stomach demonstrated normal contour. There is thickening of the rugal folds, there is evidence for mild thickening of the mucosal area gastricae, and there are several foci of subtle contrast pooling in the distal body and antrum suggesting submucosal aphthous ulcers. Findings suggesting gastritis. No duodenal abnormality grossly although only a small amount of contrast progressed into the third segment of the duodenum. No malrotation. FLUOROSCOPY TIME: 5 minutes 10 seconds Number of Spot Images: 15 Number of Cine: 14 DOSE AREA PRODUCT: 1935 uGy-m2 (microgray-meter squared) FL/FL barium swallow with air IMPRESSION: 1. Mild cricopharyngeal achalasia 2. Very small type I hiatal hernia 3. Mildly disorganized esophageal peristalsis 4. Mild delay in gastric emptying, with only small amount of barium observed progressing into the third portion of the duodenum at the end of the examination. Uncertain if this is clinically significant. 5. Findings suggesting gastritis. Assessment & Plan Assessment & Plan (1) GERD (gastroesophageal reflux disease): Code(s): K21.9 - Gastro-esophageal reflux disease without esophagitis Category: Medical (2) Constipation: Code(s): K59.00 - Constipation, unspecified Category: Medical (3) Vertigo: Code(s): R42 - Dizziness and giddiness Category: Medical Plan Brazilian #Serafin Live She felt that Diflucan resolved her problems. She continues to do well on her medications, despite barium swallow results she denies any dysphgia or N/V. She continue omeprazole prn and magnesium and likes the OTC IB Guard. She offers doorknob complaint of left ear pain and vertigo. ROV 6 mos. Medications: New meclizine 50 mg PO BID 60 tabs 2RF R42 - Dizziness and giddiness clotrimazole 1% 1 application OD tid for fungal otitis media 1 appl topical TID 30 mL 0RF Refilled omeprazole 20 mg PO DAILY 30 caps 6RF 30 days K21.9 - Gastro-esophageal reflux disease without esophagitis magnesium oxide 400 mg PO BID 180 tabs 2RF K59.00 - Constipation, unspecified Coding Level of Care Code Est Pt Level 3 (52206) Diagnoses GERD (gastroesophageal reflux disease) K21.9 Constipation K59.00 Vertigo R42
== END 2023-09-18 09:29 | disposition home or self-care (01) ==
PROVIDERS: PCP Internal Medicine; Visit Provider Nurse Practitioner
DX: K21.9 Gastro-esophageal reflux disease without esophagitis (principal); K59.00 Constipation, unspecified; R42 Dizziness and giddiness
CPT/HCPCS: 99213

== ENCOUNTER → 2023-09-18 08:29 | Outpatient (BNVA) | payer OTHER, SELFPAY | PROVIDERS: PCP Internal Medicine; Visit Provider Nurse Practitioner | DX: K21.9 Gastro-esophageal reflux disease without esophagitis (principal); K59.00 Constipation, unspecified; R42 Dizziness and giddiness; Z71.2 Person consulting for explanation of examination or test findings | CPT/HCPCS: 99212 ==

== ENCOUNTER 2023-10-08 10:28 | Outpatient (AMB) | payer OTHER, SELFPAY ==
--- NOTE | 2023-10-08 10:34 | MHC.OFFVIS ---
Intake Visit Reasons: f/u s/p US 08/30/23 Intake Note: Patient presents for follow up US done on 08/30/23. Patient has no complaints. Allergies Iodinated Contrast Media [IV Contrast Dye] Allergy (Verified 10/08/23 10:34) Unconscious HPI HPI f/u s/p 08/30/23: Details: Very pleasant 63-year-old female presents for follow-up regarding lower extremity pain and discomfort. She reports that it is more muscular in nature and has been improving over the last few weeks since she is seen us. She now presents to us for follow-up with venous insufficiency testing. PFSH Medical History Vitamin D deficiency Multinodular thyroid Surgical History H/O blepharoplasty History of esophagogastroduodenoscopy (EGD) History of colonoscopy Family History Father Leukemia Mother Colon cancer Sister Diabetes Hypertension Social History Household Members: Children Housing: Apartment Are you a primary child care coordinator to a significant other at home: No Do you presently have visiting nurse or other home services: No Alcohol intake: current Alcohol intake frequency: does not drink Patient Tobacco Use Status: Never used Tobacco service: No Current occupational status: employed Review of Systems Const All systems reviewed & are unremarkable except as noted in HPI and below Reports no additional complaints ENT Reports Normal hearing present Card Denies chest pain, Denies chest pain at rest, Denies chest pain with activity and Denies pedal edema Resp Denies cough GI Denies abdominal pain Musc Denies abnormal gait, Denies muscle cramps and Denies radiating pain into limb Skin/Breast Denies skin ulcer and Denies wounds Neuro Reports Normal hearing present and Denies abnormal gait Psych Reports no additional complaints Physical Exam Const General: cooperative, healthy appearing and comfortable Orientation/consciousness: oriented to person, oriented to place and oriented to time HEENT Head: Yes normal to inspection Neck Neck: Yes normal visual inspection Carotids: no bruits Chest Chest palpation & inspection: normal inspection of the chest Resp Effort & Inspection: normal respiratory effort and able to speak in complete sentences Auscultation: clear to auscultation bilaterally, no crackles, no rales, no rhonchi and no wheezes Cardio Rate: regular rate Rhythm: regular rhythm Heart sounds: S1 normal heart sound present and S2 normal heart sound present Bruits: no carotid bruits Peripheral pulses: Peripheral pulses 2+ throughout GI Inspection: Yes normal to inspection Skin Wounds: no wounds Hair: normal Neuro General: oriented to person, oriented to place and oriented to time Cranial nerves: Yes CN's II-XII intact bilaterally and Yes Normal hearing present Cognition (Neuro): normal cognition Motor exam (neuro): 5/5 motor strength present throughout Extrem Other: venous exam: No significant superficial varicosities or spider telangiectasias, minimal edema General: No clubbing, No cyanosis and No edema Psych Appearance: grossly normal Mental Status: mental status grossly normal Speech and movement: Normal speech and movement present Results Reviewed Results Reviewed: Brief summary of venous insufficiency testing is as follows: right great saphenous vein: negative right small saphenous vein: negative right accessory vein: none present left great saphenous vein: negative left small saphenous vein: negative left accessory vein: none present Please note there is no evidence of any venous aneurysms or significant tortuosity Assessment & Plan Assessment & Plan (1) Lower extremity pain, bilateral: Code(s): M79.604 - Pain in right leg; M79.605 - Pain in left leg Category: Medical Plan: In short patient has lower extremity pain and discomfort. It does not appear to be vascular in nature as she does have palpable arterial pulses in venous insufficiency testing has shown to be negative. I do suspect it may be musculoskeletal in nature and possibly associated with her statin use. She will follow up with us on an as-needed basis. Thank you for allowing us to assist in her care. If there are any questions or concerns please do not hesitate to contact us Coding Level of Care Code Est Pt Level 4 (36139) Diagnoses Lower extremity pain, bilateral M79.604; M79.605
== END 2023-10-08 10:54 | disposition home or self-care (01) ==
PROVIDERS: PCP Internal Medicine; Visit Provider Surgery Vascular Surgery
DX: M79.604 Pain in right leg (principal); M79.605 Pain in left leg
CPT/HCPCS: 99214

== ENCOUNTER → 2023-10-08 10:28 | Outpatient (BNVA) | payer OTHER, SELFPAY | PROVIDERS: PCP Internal Medicine; Visit Provider Surgery Vascular Surgery | DX: M79.604 Pain in right leg (principal); M79.605 Pain in left leg | CPT/HCPCS: 99212 ==

== ENCOUNTER 2023-12-27 08:25 | Outpatient (REF) | payer OTHER, SELFPAY ==
[2023-12-27 11:29] LABS: Alanine Aminotransferase 26 U/L (0-31); Albumin Level 4.4 g/dL (3.5-5.0); Alkaline Phosphatase 59 U/L (39-117); Anion Gap 13 (12-20); Aspartate Amino Transferase 28 U/L (5-31); Bilirubin Total 0.5 mg/dL (0.0-1.0); Blood Urea Nitrogen 14 mg/dL (9-16); Calcium 9.7 mg/dL (8.4-10.2); Carbon Dioxide 27 mmol/L (22-29); Chloride 106 mmol/L (96-108); Cholesterol 213 mg/dL (<200); Estimated Glomerular Filt Rate > 60; Glucose Random 85 mg/dL (60-115); HDL Cholesterol 61 mg/dL (>40); LDL Cholesterol Calculated 136 mg/dL (<100); Potassium 4.4 mmol/L (3.3-5.1); Sodium 142 mmol/L (135-145); Total Protein 7.9 g/dL (6.5-8.0); Triglycerides 84 mg/dL (<150)
== END 2023-12-27 08:26 | disposition home or self-care (01) ==
LOC: HO.10HDL 08:25
PROVIDERS: PCP Internal Medicine; Visit Provider Internal Medicine
DX: Z00.00 Encounter for general adult medical examination without abnormal findings (principal); I10 Essential (primary) hypertension; E78.00 Pure hypercholesterolemia, unspecified; D56.0 Alpha thalassemia
CPT/HCPCS: 36415; 80053; 80061

== ENCOUNTER 2024-05-11 00:23 | Emergency (ER) | payer OTHER, SELFPAY ==
[2024-05-11 00:24] VITALS: BP 155/62; PULSE 74; O2SAT 99
[2024-05-11 00:26] VITALS: BP 138/74; PULSE 66; RESP 18; TEMP 36.3; O2SAT 98; BMI 23.7
--- NOTE | 2024-05-11 00:45 | ED_ITS ---
HPI - Dizziness General Chief Complaint: Dizziness Stated Complaint: Dizzy, LUGO, hx vertigo & anxiety Time Seen by Provider: 05/11/24 00:33 Source: patient Mode of arrival: EMS Limitations: language barrier (Malian speaking only, [facility] [place] used) History of Present Illness ED Provider: Dr. Gerry Thibodeaux HPI Narrative: 63-year-old female with a history of hypertension, GERD, palpitations and vertigo who presents emergency department for evaluation flare-up of her vertigo. She states that she has had vertigo attacks which started yesterday morning. She describes the vertigo as a room spinning dizziness. She states she did her vertigo exercise yesterday with improvement of her symptoms but the vertigo came back last night. Prior to coming to the emergency department she had a episode of room spinning that cause her to fall to the carpeted floor of her bedroom. She denies any injury. Because of the severity of her vertigo she called an ambulance to come to the emergency department for evaluation. She denied fever, chills, rhinorrhea, sore throat, cough. She states she was had nausea with no vomiting. She denied change in her vision, headache or weakness. Related Data Home Medications ?Medication ?Instructions ?Recorded ?Confirmed ezetimibe 10 mg tablet 10 mg PO DAILY 02/27/23 01/14/24 fluticasone propionate 50 1 spray intranasal BID 02/27/23 01/14/24 mcg/actuation nasal spray,suspension polyethylene glycol 3350 17 17 g PO DAILY 07/19/23 01/14/24 gram/dose oral powder (Gavilax) diclofenac sodium 75 mg 75 mg PO BID 09/18/23 01/14/24 tablet,delayed release metoprolol succinate 50 mg 50 mg PO DAILY 09/18/23 01/14/24 tablet,extended release 24 hr Previous Rx's ?Medication ?Instructions ?Recorded simethicone 180 mg capsule 180 mg PO QID 30 days #120 caps 07/19/23 clotrimazole 1 % topical solution 1 appl topical TID #30 mL 09/18/23 magnesium oxide 400 mg (241.3 mg 400 mg PO BID #180 tabs 09/18/23 magnesium) tablet meclizine 50 mg tablet 50 mg PO BID #60 tabs 09/18/23 omeprazole 20 mg capsule,delayed 20 mg PO DAILY 30 days #30 caps 09/18/23 release azithromycin 250 mg tablet See Rx Instructions .Route 01/14/24 (Zithromax Z-Frandy) .COMPLEX #6 tabs phenylephrine HCl 10 mg tablet 10 mg PO Q4-6H PRN Congestion #20 01/14/24 (Sudafed PE) tabs meclizine 25 mg tablet (Dramamine 25 mg PO TID PRN dizziness #20 tabs 05/11/24 Less Drowsy) Allergies Allergy/AdvReac Type Severity Reaction Status Date / Time Iodinated Contrast Media Allergy Unconscious Verified 05/11/24 00:39 [IV Contrast Dye] Review of Systems Review of Systems: Yes all other systems are reviewed and are negative [facility] Past Medical History [facility] Narrative: Social history: She lives alone. She denies tobacco, alcohol and drug use Medical History Vitamin D deficiency Multinodular thyroid Surgical History H/O blepharoplasty History of esophagogastroduodenoscopy (EGD) History of colonoscopy Family History Family History Father Leukemia Mother Colon cancer Sister Diabetes Hypertension Social History Social History Household Members: Children Housing: Apartment Are you a primary child care development specialist to a significant other at home: No Do you presently have visiting nurse or other home services: No Alcohol intake: current Alcohol intake frequency: does not drink Patient Tobacco Use Status: Never used Tobacco Smoked in Last 30 Days: No Use of substances other than those prescribed or required for medical reasons: No Advance Directives: No Advance Directives Information Provided: Yes Do you have a plan to hurt others: No Plan Patient : No service: No Current occupational status: employed Physical Exam Vital Signs: Vital Signs: Last Vital Signs Temp 97.5 F 05/11/24 07:56 Pulse 67 05/11/24 07:56 Resp 16 05/11/24 07:56 BP 100/62 05/11/24 07:56 Pulse Ox 99 05/11/24 07:56 O2 Del Method Room Air 05/11/24 07:56 BMI result Body Mass Index 23.7 Vital signs were normal Exam: General: Awake, alert in no distress Head: Normocephalic, atraumatic EENT: PERRL, patient does have lateral nystagmus, Lids normal, sclera normal, conjunctiva normal, nose normal , ears normal, throat without erythema or exudates Neck: Supple, no adenopathy Lung: breath sounds symmetric, no wheezing, rales or rhonchi Chest: symmetric movement, nontender Heart: regular rate and rhythm, normal S1, S2 no murmurs or rubs Abdomen: soft, non-tender, nondistended, normal bowel sounds Back: no vertebral tenderness, no CVAT Extremities: no deformities, moves all extremities symmetrically Neuro: Awake, alert, oriented, normal speech, cranial nerves intact, moves all extremities symmetrically Psych: Pleasant, cooperative Course Course Course Narrative: up and awake feels better wants to go home 732am TERRY 05/11/24 Medications Administered Discontinued Medications Generic Name Dose Route Start Last Admin Trade Name Freq PRN Reason Stop Dose Admin Hydroxyzine HCl 25 mg 05/11/24 01:59 05/11/24 02:08 Hydroxyzine Hcl 25 Mg Tablet PO 05/11/24 02:00 25 mg ONCE ONE Administration Lorazepam 0.5 mg 05/11/24 00:46 05/11/24 00:52 Lorazepam 0.5 Mg Tablet PO 05/11/24 00:47 0.5 mg ONCE ONE Administration Lorazepam 1 mg 05/11/24 01:21 05/11/24 01:26 Lorazepam 1 Mg Tablet PO 05/11/24 01:22 1 mg ONCE ONE Administration Meclizine HCl 25 mg 05/11/24 00:46 05/11/24 00:52 Meclizine Hcl 25 Mg Tablet PO 05/11/24 00:47 25 mg ONCE STA Administration Medical Decision Making Medical Decision Making [facility] Narrative: 63-year-old female with a history of hypertension, GERD, palpitations and vertigo who presents emergency department for evaluation flare-up of her vertigo with symptoms starting yesterday and getting worse prior to coming to the emergency department. Patient states she had an episode this morning that caused her to fall to the bedroom floor. She denied any injury. Vital signs were normal. Physical examination did reveal lateral nystagmus otherwise exam was unremarkable. Differential diagnosis: ?Includes but is not limited to benign positional vertigo, cerebellar stroke, anxiety Course: 00:51 Patient's presentation is consistent with her vertigo syndrome and anxiety. Patient was treated with meclizine 25 mg orally and Ativan 0.5 mg orally. 02:00 Start physician observation Patient states that her dizziness did not improve, she was given a 2nd dose of Ativan 1 mg orally and a dose of hydroxyzine 25 mg orally. At this time, the patient states she can not get a ride home but her daughter may be able to pick her up in the morning. Therefore the patient will be placed in physician observation to monitor her symptoms and her vital signs and if she improves in the morning then you will discharge her to home. At the end of my shift, patient was care was turned over to my colleague, Dr. Benítez. Admission/Observation Consideration of admission/observation: Escalation of care including admission/observation considered (No) Chronic Conditions Patient?s care impacted by: Hypertension and Other (Benign positional vertigo) Discharge Plan Discharge Clinical Impression: Anxiety Benign paroxysmal positional vertigo Qualifiers: Laterality: unspecified laterality Qualified Code(s): H81.10 - Benign paroxysmal vertigo, unspecified ear Patient Disposition: Home, Self-Care Instructions: Benign Paroxysmal Positional Vertigo (ED) Additional Instructions: Your symptoms are consistent with a flare-up of your vertigo syndrome. Take meclizine 25 mg pills, 1 pill 3 times a day for the next 3 days for dizziness then as needed for dizziness. ?This medication will make you sleepy. ?Do not drive or work while taking this medication. Follow-up with your doctor in 2 days. Please return to the emergency department if your symptoms get worse or if you develop any symptoms that are concerning to you. Prescriptions: New meclizine [Dramamine Less Drowsy] 25 mg tablet 25 mg PO TID PRN (Reason: dizziness) Qty: 20 0RF No Action azithromycin [Zithromax Z-Frandy] 250 mg Tablet See Rx Instructions .ROUTE .COMPLEX Qty: 6 2RF Rx Instructions: For 250 mg dose pack: take 500 mg today (day 1), then 250 mg for 4 days (days 2-5) phenylephrine HCl [Sudafed PE] 10 mg Tablet 10 mg PO Q4-6H PRN (Reason: Congestion) Qty: 20 3RF ezetimibe 10 mg tablet 10 mg PO DAILY fluticasone propionate 50 mcg/actuation spray,suspension 1 spray intranasal BID polyethylene glycol 3350 [Gavilax] 17 gram/dose powder 17 g PO DAILY simethicone 180 mg capsule 180 mg PO QID 30 Days Qty: 120 3RF Rx Instructions: after meals metoprolol succinate 50 mg tablet extended release 24 hr 50 mg PO DAILY diclofenac sodium 75 mg tablet,delayed release (DR/EC) 75 mg PO BID magnesium oxide 400 mg (241.3 mg magnesium) tablet 400 mg PO BID Qty: 180 2RF clotrimazole 1 % solution 1 appl topical TID Qty: 30 0RF Rx Instructions: 1 application OD tid for fungal otitis media omeprazole 20 mg capsule,delayed release(DR/EC) 20 mg PO DAILY 30 Days Qty: 30 6RF meclizine 50 mg tablet 50 mg PO BID Qty: 60 2RF Interventions: ED Discharge Assessment Last Done: 05/11/24 07:56 Discharge Date/Time: 05/11/24 08:06 Print Language: Malian
[2024-05-11] MEDS: LORazepam 0.5 MG TABLET PO (00:52)
[2024-05-11] MEDS: Meclizine HCl 25 MG TABLET PO (00:52)
[2024-05-11] MEDS: LORazepam 1 MG TABLET PO (01:26)
[2024-05-11] MEDS: hydrOXYzine HCL 25 MG TABLET PO (02:08)
--- NOTE | 2024-05-11 02:14 | PC.NURSE ---
patient ambulated to bathroom with heavy assist of 1
[2024-05-11 03:54] VITALS: BP 104/58; PULSE 66; RESP 14; TEMP 36.7; O2SAT 97
[2024-05-11 07:56] VITALS: BP 100/62; PULSE 67; RESP 16; TEMP 36.4; O2SAT 99
== END 2024-05-11 08:06 | disposition home or self-care (01) ==
PROVIDERS: Emergency Provider Emergency Medicine Emergency Medical Services; PCP Internal Medicine
DX: H81.10 Benign paroxysmal vertigo, unspecified ear (principal); F41.9 Anxiety disorder, unspecified; I10 Essential (primary) hypertension
CPT/HCPCS: 99283; 99284

== ENCOUNTER 2024-07-22 09:23 | Outpatient (REF) | payer OTHER, SELFPAY ==
[2024-07-22 09:46] LABS: MANUAL DIFF FLAG NO
[2024-07-22 10:08] LABS: Basophils Percent Auto 0.5 % (0-2); Eosinophils Absolute Auto 0.1 X10*3/uL (0.0-0.4); Eosinophils Percent Auto 0.9 % (0-4); Hematocrit 35.1 % (37.0-47.0); Hemoglobin 10.8 g/dl (12.0-16.0); Imm Gran Abs Auto 0.01 X10*3/uL (0.00-0.03); Imm Gran Pct Auto 0.2 % (0.0-0.4); Lymphocytes Absolute Auto 2.1 X10*3/uL (1.2-4.9); Lymphocytes Percent Auto 37.3 % (20-40); Mean Corpuscular HGB Conc 30.8 g/dl (31.0-35.0); Mean Corpuscular Hemoglobin 23.6 pg (27.0-33.0); Mean Corpuscular Volume 76.6 fL (80.0-98.0); Mean Platelet Volume 10.3 fL (9.4-12.3); Monocytes Absolute Auto 0.6 X10*3/uL (0.1-1.2); Monocytes Percent Auto 10.5 % (2-11); Neutrophils Absolute Auto 2.9 x10*3/uL (2.0-8.3); Neutrophils Percent Auto 50.6 % (45-73); Platelet Count 255 X10*3/uL (160-400); Red Blood Count 4.58 X10*6/uL (4.20-5.50); Red Cell Distribution Width 13.6 % (11.0-16.0); White Blood Count 5.7 X10*3/uL (4.8-10.8)
[2024-07-22 10:26] LABS: Alanine Aminotransferase 28 U/L (0-31); Albumin Level 4.4 g/dL (3.5-5.0); Alkaline Phosphatase 61 U/L (39-117); Anion Gap 11 (12-20); Aspartate Amino Transferase 28 U/L (5-31); Bilirubin Total 0.3 mg/dL (0.0-1.0); Blood Urea Nitrogen 19 mg/dL (9-16); Calcium 9.8 mg/dL (8.4-10.2); Carbon Dioxide 29 mmol/L (22-29); Chloride 105 mmol/L (96-108); Cholesterol 225 mg/dL (<200); Estimated Glomerular Filt Rate > 60; Glucose Random 81 mg/dL (60-115); HDL Cholesterol 65 mg/dL (>40); LDL Cholesterol Calculated 143 mg/dL (<100); Potassium 4.3 mmol/L (3.3-5.1); Sodium 141 mmol/L (135-145); Total Protein 7.8 g/dL (6.5-8.0); Triglycerides 88 mg/dL (<150)
== END 2024-07-22 09:24 | disposition home or self-care (01) ==
LOC: HO.10HDL 09:23
PROVIDERS: Visit Provider Internal Medicine
DX: D64.9 Anemia, unspecified (principal); E78.00 Pure hypercholesterolemia, unspecified; H81.11 Benign paroxysmal vertigo, right ear; H93.A1 Pulsatile tinnitus, right ear; I10 Essential (primary) hypertension
CPT/HCPCS: 36415; 80053; 80061; 85025; 87086

== ENCOUNTER 2024-08-07 09:40 | Outpatient (AMB) | payer OTHER, SELFPAY ==
--- NOTE | 2024-08-07 09:42 | A.OFFVIS_ITS ---
Vital Signs 08/07/24 09:45 Height 5 ft Weight 114 lb 10.246 oz BMI 22.4 BP 121/55 L Blood Pressure Location Lt brachial Position Sitting Pulse 76 Intake Visit Reasons: Follow up GERD/CIC Intake Note: Daily presents in the office as a follow up for GERD and CIC. CC: She states she has several concerns - states she states that she is feeling okay. Project Director Required: Yes Allergies Iodinated Contrast Media [IV Contrast Dye] Allergy (Verified 08/07/24 09:46) Unconscious HPI HPI Follow up GERD/CIC: Details: Assessment & Plan (1) GERD (gastroesophageal reflux disease): Code(s): K21.9 - Gastro-esophageal reflux disease without esophagitis Category: Medical (2) Constipation: Code(s): K59.00 - Constipation, unspecified Category: Medical (3) Vertigo: Code(s): R42 - Dizziness and giddiness Category: Medical Plan [place] #[employer] She felt that Diflucan resolved her problems. She continues to do well on her medications, despite barium swallow results she denies any dysphgia or N/V. She continue omeprazole prn and magnesium and likes the OTC IB Guard. She offers doorknob complaint of left ear pain and vertigo. ROV 6 mos. Medications: New meclizine 50 mg PO BID 60 tabs 2RF R42 - Dizziness and giddiness clotrimazole 1% 1 application OD tid for fungal otitis media 1 appl topical TID 30 mL 0RF Refilled omeprazole 20 mg PO DAILY 30 caps 6RF 30 days K21.9 - Gastro-esophageal reflux disease without esophagitis magnesium oxide 400 mg PO BID 180 tabs 2RF K59.00 - Constipation, unspecified Labs: Laboratory Tests 01/04/18 01/14/24 07/22/24 12:18 09:40 09:30 WBC 5.7 RBC 4.58 Hgb 10.8 L Hct 35.1 L MCV 76.6 L MCH 23.6 L MCHC 30.8 L Plt Count 255 Estimated GFR > 60 Ferritin 647 H Total Bilirubin 0.3 AST 28 ALT 28 Alkaline Phosphatase 61 Triglycerides 88 Cholesterol 225 H LDL Cholesterol, Calc 143 H HDL Cholesterol 65 Hemochromatosis DNA negative Review of Dr. Meade's note (hematology) ?Given the chronicity of the microcytic anemia, and elevated ferritin level, l was suspecting that she may have an underlying thalassemia trait. She could still have alpha thalassemia trait. Other possibilities that of liver disease that can also lead to an elevated ferritin. She has had several courses of IV Iron in the past, that could have led to Iron overload.? TODAYS VISIT [place] [employer] She continue omeprazole prn and magnesium and likes the OTC IB Guard. She is anxious and tearful today. Apparently, she feels she has difficulty communicating with her primary care provider because they do not provide professional [place] interpreters so she always has to bring 1 of her children with her. She really does not want to share her personal business with her children, and the last time she was very upset because her primary care pr torin, per her report, took her son aside and told him that Daily needed to have a colonoscopy even though the patient wanted a Cologuard test. While clinically her concerns for valid, her methodology of going behind the back of the patient seems to have jeopardize there therapeutic relationship. Today Daily wants to discuss in detail Cologuard versus colonoscopy. One of her big concerns is the fear of the anesthesia more than anything else. She says she is not afraid she will , rather she is afraid that with the after effects and without anyone in her family who will be available to drive her home, she would be vulnerable to being robbed attacked etc. because she ?does not even know on me. ? This is actually a reasonable concern. She says she would be able to get a ride home but it would be a friend and she is bit miss trusting of anyone but her close family. I did tell her that we are using propofol now and unlike the conscious sedation that utilized a benzo and an opiate this is much quicker to wear off and he is usually do not have that retrograde amnesia and severe sedation that goes on for hours anymore. This makes her feel somewhat better. We also discussed utilization of Cologuard. I let her know that we certainly could do this but of course if it comes back positive then we need to talk about colonoscopy could that would be indicative of a polyp that needs to be removed. Her last colonoscopy was in [address] Rubio and was negative. After a long discussion she decides that we will order colonoscopy but she would prefer to have it done with Dr. Mcghee and of course she would prefer propofol anesthesia. She also wishes to fill out a do not resuscitate form and have it on file. Again she does not feel comfortable discussing this in front of her children with her primary. I did go to the website and printed the for and helped her to fill it out to her wishes. She does not want to be intubated or have CPR but she would be agreeable to CPAP use, dialysis and any or all ID treatments including blood transfusions if needed. I let her know that she should keep the paperwork on her because if she goes to a different hospital she will need it to make her wishes clear. She asks me about some lesions on her skin she is concerned about. I did a thorough check and the lesion she was discussing are simple wright angiomas and I explained to her that these are quite benign. She wanted to review all of her blood work. She is concerned that she is anemic I yet she has not elevated ferritin. She has seen Hematology and they explained to her that this is simply a genetic variant because her body makes smaller red cells than usual. Under these circumstances she would not need any iron therapy. This in fact would be harmful to her liver. I tried to explain this to her never day language, and this does concur with what I read in marketing underwriter last note saying she likely has thalassemia a trait. She also wants an explanation of her cholesterol in detail including the meaning and importance of LDL HDL and triglyceride types. This was provided to her. There are no prior problems with anesthesia or sedation. She simply is very anxious that someone would take advantage of her if she has not fully recovered upon discharge. She denies any cardiac or respiratory problems. There are no infectious disease problems. Again she has a family history of colon cancer. Return office visit in 6 months and of course after the procedures. [facility] Medical History (Updated 08/07/24 @ 11:58 by Nubia Willard, ANP-C) Microcytic anemia Urinary frequency Generalized abdominal pain Oral thrush Vitamin D deficiency Multinodular thyroid Surgical History H/O blepharoplasty History of esophagogastroduodenoscopy (EGD) History of colonoscopy Family History Father Leukemia Mother Colon cancer Sister Diabetes Hypertension Social History Household Members: Children Housing: Apartment Are you a primary director career to a significant other at home: No Do you presently have visiting nurse or other home services: No Alcohol intake: current Alcohol intake frequency: does not drink Patient Tobacco Use Status: Never used Tobacco service: No Current occupational status: employed Review of Systems Const Denies fatigue, Denies fever(s), Denies night sweats, Denies poor appetite and Denies weight loss ENT Reports Normal hearing present, Denies dental pain, Denies dysphagia, Reports dizziness, Denies hearing loss, Denies mouth pain, Denies odynophagia, Denies throat swelling, Denies tongue swelling and Reports other (Dentition adequate) Card Reports no additional complaints Resp Reports no additional complaints GI Details: Denies abdominal pain, Denies melena, Denies bloating, Denies hematochezia, Denies constipation, Reports GI cramping, Denies dysphagia, Denies excessive flatus, Denies early satiety, Reports heartburn, Denies diarrhea, Denies nausea, Denies odynophagia, Denies vomiting and Denies hematemesis Skin/Breast Denies pruritus, Reports lesions (Wright angiomas), Denies rash and Denies jaundice Neuro Reports Normal hearing present, Denies Abnormal speech present and Reports dizziness Psych Reports anxiety Endo Denies fatigue Aller/Immun Denies throat swelling and Denies tongue swelling Physical Exam Vital Signs: Last Vital Signs Pulse 76 08/07/24 09:45 BP 121/55 L 08/07/24 09:45 BMI result Body Mass Index 22.4 Const General: cooperative, no acute distress, well developed, anxious and well groomed Nutritional Appearance: average body habitus and well nourished Orientation/consciousness: oriented to person, oriented to place and oriented to time Limitations: language barrier HEENT Head: Yes normocephalic and Yes atraumatic Eyes General: appearance normal, both eyes and all related structures Pupils: Equal, round and reactive pupils present Neck Neck: Yes normal visual inspection and Yes no lymphadenopathy Thyroid: Thyroid normal Resp Effort & Inspection: normal respiratory effort and able to speak in complete sentences Auscultation: clear to auscultation bilaterally Cardio Rate: regular rate Rhythm: regular rhythm Heart sounds: Normal, physiologic split S2 sound present Peripheral pulses: radial pulses present and posterior tibial pulses present GI Inspection: No distended and No Abdominal panniculus present Palpation (GI): Soft to palpation, nontender, no guarding, not rigid and No hepatosplenomegaly present Percussion: Yes normal to percussion Auscultation: normal bowel sounds Rectal Exam - Female: deferred Skin General skin exam: no rashes or lesions noted, turgor normal, skin not dry, no jaundice, No spider nevi and no striae Rashes: no rashes Nails: normal Neuro General: oriented to person, oriented to place and oriented to time Cranial nerves: Yes Equal, round and reactive pupils present and Yes Normal hearing present Speech: No Abnormal speech present Extrem General: Yes normal to inspection, No clubbing, No cyanosis and No edema Psych Appearance: grossly normal and well kempt Mental Status: mental status grossly normal Speech and movement: Normal speech and movement present Affect: normal affect Attitude: cooperative Thought process: Normal thought process present and not confabulating Thought content: Normal thought content present Insight: Fair insight present (Psych) Judgement: Fair judgement present (Psych) Assessment & Plan Assessment & Plan (1) Family history of colon cancer: Comment: Due for repeat scope in 2024 Code(s): Z80.0 - Family history of malignant neoplasm of digestive organs Category: Medical (2) Abdominal bloating: Code(s): R14.0 - Abdominal distension (gaseous) Category: Medical (3) GERD (gastroesophageal reflux disease): Code(s): K21.9 - Gastro-esophageal reflux disease without esophagitis Category: Medical (4) LUQ pain: Code(s): R10.12 - Left upper quadrant pain Category: Medical (5) DNR (do not resuscitate) discussion: Code(s): Z71.89 - Other specified counseling Category: Medical (6) Microcytic hypochromic anemia: Code(s): D50.9 - Iron deficiency anemia, unspecified Category: Medical (7) Elevated ferritin: Comment: Negative hemochromatosis genetic study Code(s): R79.89 - Other specified abnormal findings of blood chemistry Category: Medical Plan [place] #[employer] Live She continue omeprazole prn and magnesium and likes the OTC IB Guard. She is anxious and tearful today. Apparently, she feels she has difficulty communicating with her primary care provider because they do not provide professional [place] interpreters so she always has to bring 1 of her children with her. She really does not want to share her personal business with her children, and the last time she was very upset because her primary care provider, per her report, took her son aside and told him that Daily needed to have a colonoscopy even though the patient wanted a Cologuard test. While clinically her concerns for valid, her methodology of going behind the back of the patient seems to have jeopardize there therapeutic relationship. Today Daily wants to discuss in detail Cologuard versus colonoscopy. One of her big concerns is the fear of the anesthesia more than anything else. She says she is not afraid she will , rather she is afraid that with the after effects and without anyone in her family who will be available to drive her home, she would be vulnerable to being robbed attacked etc. because she ?does not even know on me. ? This is actually a reasonable concern. She says she would be able to get a ride home but it would be a friend and she is bit miss trusting of anyone but her close family. I did tell her that we are using propofol now and unlike the conscious sedation that utilized a benzo and an opiate this is much quicker to wear off and he is usually do not have that retrograde amnesia and severe sedation that goes on for hours anymore. This makes her feel somewhat better. We also discussed utilization of Cologuard. I let her know that we certainly could do this but of course if it comes back positive then we need to talk about colonoscopy could that would be indicative of a polyp that needs to be removed. Her last colonoscopy was in [address] Rubio and was negative. After a long discussion she decides that we will order colonoscopy but she would prefer to have it done with Dr. Mcghee and of course she would prefer propofol anesthesia. She also wishes to fill out a do not resuscitate form and have it on file. Again she does not feel comfortable discussing this in front of her children with her primary. I did go to the website and printed the for and helped her to fill it out to her wishes. She does not want to be intubated or have CPR but she would be agreeable to CPAP use, dialysis and any or all ID treatments including blood transfusions if needed. I let her know that she should keep the paperwork on her because if she goes to a different hospital she will need it to make her wishes clear. She asks me about some lesions on her skin she is concerned about. I did a thorough check and the lesion she was discussing are simple wright angiomas and I explained to her that these are quite benign. She wanted to review all of her blood work. She is concerned that she is anemic I yet she has not elevated ferritin. She has seen Hematology and they explained to her that this is simply a genetic variant because her body makes smaller red cells than usual. Under these circumstances she would not need any iron therapy. This in fact would be harmful to her liver. I tried to explain this to her never day language, and this does concur with what I read in marketing underwriter last note saying she likely has thalassemia a trait. She also wants an explanation of her cholesterol in detail including the meaning and importance of LDL HDL and triglyceride types. This was provided to her. There are no prior problems with anesthesia or sedation. She simply is very anxious that someone would take advantage of her if she has not fully recovered upon discharge. She denies any cardiac or respiratory problems. There are no infectious disease problems. Again she has a family history of colon cancer. Return office visit in 6 months and of course after the procedures. Orders: Orders Colonoscopy - GI Use Only Today Z80.0 - Family history of malignant neoplasm of digestive organs Medications: New sodium,potassium,mag sulfates 17.5-3.13-1.6 gram (Suprep Bowel Prep Kit) 480 mL orally; FOR COLONOSCOPY PREP 354 mL 0RF Refilled omeprazole 20 mg PO DAILY 30 days 30 caps 6RF K21.9 - Gastro-esophageal reflux disease without esophagitis simethicone after meals 180 mg PO QID 30 days 120 caps 6RF R14.0 - Abdominal distension (gaseous) Coding Level of Care Code Est Pt Level 4 (49181) Diagnoses Family history of colon cancer Z80.0 Abdominal bloating R14.0 GERD (gastroesophageal reflux disease) K21.9 LUQ pain R10.12 DNR (do not resuscitate) discussion Z71.89 Microcytic hypochromic anemia D50.9 Elevated ferritin R79.89 Time Spent (min) 46
[2024-08-07 09:45] VITALS: BP 121/55; PULSE 76; BMI 22.4
== END 2024-08-07 10:57 | disposition home or self-care (01) ==
LOC: HO.HGI 09:40
PROVIDERS: PCP Internal Medicine; Visit Provider Nurse Practitioner
DX: Z80.0 Family history of malignant neoplasm of digestive organs (principal); R14.0 Abdominal distension (gaseous); K21.9 Gastro-esophageal reflux disease without esophagitis; R10.12 Left upper quadrant pain; Z71.89 Other specified counseling; D50.9 Iron deficiency anemia, unspecified; R79.89 Other specified abnormal findings of blood chemistry
CPT/HCPCS: 99214

== ENCOUNTER → 2024-08-07 09:40 | Outpatient (BNVA) | payer OTHER, SELFPAY | PROVIDERS: PCP Internal Medicine; Visit Provider Nurse Practitioner | DX: K21.9 Gastro-esophageal reflux disease without esophagitis (principal); K59.04 Chronic idiopathic constipation; R14.0 Abdominal distension (gaseous); R10.12 Left upper quadrant pain; D50.9 Iron deficiency anemia, unspecified; R79.89 Other specified abnormal findings of blood chemistry; Z71.89 Other specified counseling; Z80.0 Family history of malignant neoplasm of digestive organs | CPT/HCPCS: 99212 ==

== ENCOUNTER 2024-10-02 09:07 | Outpatient (REF) | payer MEDICARE, MEDICAID, SELFPAY | END 2024-10-02 09:08 | disposition home or self-care (01) | LOC: HO.MAMMO 09:07 | PROVIDERS: PCP Internal Medicine; Visit Provider Internal Medicine | DX: Z12.31 Encounter for screening mammogram for malignant neoplasm of breast (principal) | CPT/HCPCS: 77063; 77067 ==

== ENCOUNTER → 2024-10-02 09:30 | Outpatient (BNV) | payer MEDICARE, MEDICAID, SELFPAY | PROVIDERS: PCP Internal Medicine; Visit Provider Internal Medicine | DX: Z12.31 Encounter for screening mammogram for malignant neoplasm of breast (principal) | CPT/HCPCS: 77063; 77067 ==

== ENCOUNTER 2024-10-16 07:55 | Day surgery (SDC) | payer MEDICARE, SELFPAY ==
[2024-10-16] VITALS (7 sets, daily range): BP systolic 87–138; BP diastolic 48–63; PULSE 60–66; RESP 14–19; TEMP 36.2–36.9; O2SAT 98–100; BMI 22.0
--- NOTE | 2024-10-16 08:36 | MHC.SHP ---
Pre-Procedural Eval Section A - 24 Hr Update-Section A only Date of Service: 10/16/24 The patient is an INPATIENT: No The patient has been examined within 24 hours of the surgical procedure. The History & Physical has been completed within 30 days and I have reviewed it.: No Section B - Complete if H&P > 30 days Chief Complaint: screening, positive family hx Relevant Family History (Specify if Yes): Yes Relevant Social History: None Present Medications: see Short Stay Collaborative assessment Medical History: Significant History (Microcytic anemia Urinary frequency Generalized abdominal pain Oral thrush Vitamin D deficiency Multinodular thyroid) History of Previous Operations: Relevant previous surgery/procedure and date(s) (H/O blepharoplasty History of esophagogastroduodenoscopy (EGD) History of colonoscopy) Allergies: Allergies Allergy/AdvReac Type Severity Reaction Status Date / Time Iodinated Contrast Media (IV Allergy Unconscious Verified 10/16/24 08:25 Contrast Dye) Review of Systems Sugical H&P ROS: Negative: Constitution, Cardiovascular, Respiratory and Gastrointestinal Exam Surgical H&P Exam: Normal: Heart, Normal: Lungs, Normal: Extremities and Normal: Abdomen Plan Diagnosis/Plan: Unchanged I have reviewed the history and physical and performed a pertinent physical examination on my patient. No changes have occurred unless specified. Time Spent With Patient Time: Total time managing care of this patient today ____ minutes.
[2024-10-16] MEDS: Lactated Ringers 1,000 ML 50 ML IVCONT (08:46)
--- NOTE | 2024-10-16 09:28 | HO.ANESPROP2 ---
HPI - Anesthesia Eval Consult details Narrative: for colonoscopy [facility] Active Problems Active Problems: All Active Problems Elevated ferritin (Acute) DNR (do not resuscitate) discussion (Acute) Abdominal bloating (Acute) Lower extremity pain, bilateral (Acute) Vertigo (Acute) Varicose veins of right lower extremity with inflammation (Acute) LUQ pain (Acute) HTN (hypertension), benign (Acute) Palpitations (Acute) Dysphagia (Acute) Microcytic hypochromic anemia (Acute) Vitamin D deficiency (Acute) Multinodular thyroid (Acute) GERD (gastroesophageal reflux disease) (Acute) Family history of colon cancer (Acute) Constipation (Acute) Past Medical History Medical History (Updated 10/16/24 @ 09:43 by Ronit Fox RN) HLD (hyperlipidemia) HTN (hypertension) Microcytic anemia Urinary frequency Generalized abdominal pain Oral thrush Vitamin D deficiency Multinodular thyroid Family History Family History Father Leukemia Mother Colon cancer Sister Diabetes Hypertension Family history of problems with anesthesia: No Surgical History Surgical History H/O blepharoplasty History of esophagogastroduodenoscopy (EGD) History of colonoscopy History of Problems with Anesthesia: No Social History Social History Household Members: Children Housing: Apartment Are you a primary care consultant to a significant other at home: No Do you presently have visiting nurse or other home services: No Alcohol intake: current Alcohol intake frequency: does not drink Patient Tobacco Use Status: Never used Tobacco e-Cigarette/Vaping Use: Never Used Have you been hit, kicked, punched, or otherwise hurt by someone within the past year? If so, by whom?: No Are you DNR?: No Advance Directives: No Advance Directives Information Provided: Yes service: No Current occupational status: employed Meds Allergies Allergy/AdvReac Type Severity Reaction Status Date / Time Iodinated Contrast Media (IV Allergy Unconscious Verified 10/16/24 08:25 Contrast Dye) Active Medications: Current Medications Lactated Ringer's (Lr) 1,000 mls @ 100 mls/hr IVCONT .Q10H WILEY Last Admin: 10/16/24 08:43 Dose: Not Given Lactated Ringer's (Lr) 1,000 mls @ 50 mls/hr IVCONT .Q20H WILEY Last Admin: 10/16/24 08:46 Dose: 50 mls/hr Home Medications ?Medication ?Instructions ?Recorded ?Confirmed ?Last Taken ?Type ezetimibe 10 mg tablet 10 mg PO DAILY 02/27/23 10/16/24 Unknown History fluticasone propionate 50 1 spray intranasal BID 02/27/23 10/16/24 Unknown History mcg/actuation nasal spray,suspension metoprolol succinate 50 mg 50 mg PO DAILY 09/18/23 10/16/24 10/14/24 History tablet,extended release 24 hr diclofenac sodium 75 mg 75 mg PO BID PRN Pain, Mild 08/07/24 10/16/24 08/15/24 History tablet,delayed release lifitegrast 5 % eye drops in a drp ophthalmic (eye) ONCE 08/07/24 Unknown History dropperette (Xiidra) lisinopril 2.5 mg tablet 2.5 mg PO DAILY 08/07/24 10/16/24 Unknown History Exam Height,Weight and Vital Signs: Height 5 ft Weight 51.1 kg Last Vital Signs Temp 98.4 F 10/16/24 08:32 Pulse 63 10/16/24 08:32 Resp 16 10/16/24 08:32 BP 138/63 10/16/24 08:32 Pulse Ox 99 10/16/24 08:32 O2 Del Method Room Air 10/16/24 08:32 Airway Mallampati Class: II TM Dist: >3cm Neck ROM: Full Loose/Missing/Broken Teeth: No Heart: ok Lungs: ok Assessment and Plan Assessment Anesthesia Assessment: Anesthesia Plan Discussed and Chart Reviewed Final Anesthetic Review Family History of Problems with Anesthesia: No History of Problems with Anesthesia: No NPO: Yes ASA Class: II Final Preanesthetic Review: No Changes in Pt Med Stat, Meds/Allgs Chart Reviewed, Consent Obtained/Reviewed and Anes Risks/Benef Reviewed Patient Risk: Low Procedure Risk: Low Anesthetic Plan Anesthetic Plan: MAC: and Agree w/ Assess. and Plan Disposition: Standard PACU
--- NOTE | 2024-10-16 10:00 | HO.OPN-COLON ---
Colonoscopy Operative Note Operative Note Date of Service: 10/16/24 Narrative: COLONOSCOPY TILL CECUM WITH SNARE POLYPECTOMY Pre-op diagnosis: Colon cancer screening, family hx of colon cancer and polyps. Post-op diagnosis:? Colon polyps, Diverticulosis Endoscopist:? Genie Mcghee MD Anesthesia:?MAC Consent: Indications for the procedure and potential complications of bleeding, perforation, reaction to medications and missed diagnosis were discussed with the patient and informed consent was obtained. Instrument: Olympus PCF H 190 L variable stiffness pediatric colonoscope Monitoring: Vital signs and clinical assessment, intermittent blood pressure monitoring, continuous EKG monitoring, Pulse oximetry and Carbon Dioxide monitoring were done throughout the procedure. Please see anesthesia flowsheet. Colon withdrawl time was 11 minutes. Procedure: The patient was placed in the left lateral decubitis position and pre-procedure medications were administered. After a digital rectal examination of the ano-rectum, the video colonoscope was inserted into the rectum and advanced through the colon to the cecum. The colonoscope was slowly withdrawn in a retrograde panoramic fashion and the colon mucosa was carefully examined including a retroflexed view of the rectum. Findings and interventions are described below. Procedure Difficulty: without difficulty Findings: Terminal Ileum: Not evaluated Cecum: Normal Ascending Colon: A 7-8 mm sessile polyp - removed with a cold snare. Transverse Colon: Normal Descending Colon: Normal Sigmoid Colon: Moderate diverticulosis Rectum: Normal Ano-rectum: Hypertrophied anal papillae Colon preparation: Excellent, after some irrigation. [place] Bowel Preparation Scale Right colon; 3 Transverse colon: 3 Left colon; 3 (0 = Unprepared colon segment with mucosa not seen due to solid stool that cannot be cleared. 1 = Portion of mucosa of the colon segment seen, but other areas of the colon segment not well seen due to staining, residual stool and/or opaque liquid. 2 = Minor amount of residual staining, small fragments of stool and/or opaque liquid, but mucosa of colon segment seen well. 3 = Entire mucosa of colon segment seen well with no residual staining, small fragments of stool or opaque liquid) Impression and Post Procedure Diagnosis: Colonoscopy Findings: One small polyp was removed Moderate diverticulosis seen in the sigmoid colon Plan: Pt has a FU appointment on 02/05/25 with Nubia Willard NP. Repeat Colonoscopy in 5 years if polyps are adenomatous and due to family history of colon cancer and polyps. Above findings were reviewed with the patient and relevant handouts were given and the discharge area.
== END 2024-10-16 11:08 | disposition home or self-care (01) ==
PROVIDERS: PCP Internal Medicine; Visit Provider Internal Medicine Gastroenterology
PROC: 0DJD8ZZ Inspection of Lower Intestinal Tract, Via Natural or Artificial Opening Endoscopic (ICD-10-PCS; CPT 45378; principal; 2024-10-16 09:30)
DX: Z12.11 Encounter for screening for malignant neoplasm of colon (principal); D12.2 Benign neoplasm of ascending colon; K62.89 Other specified diseases of anus and rectum; K57.30 Diverticulosis of large intestine without perforation or abscess without bleeding; Z80.0 Family history of malignant neoplasm of digestive organs; I10 Essential (primary) hypertension; E55.9 Vitamin D deficiency, unspecified; E04.2 Nontoxic multinodular goiter
CPT/HCPCS: 45385; 88305; J2003; J2704

== ENCOUNTER → 2024-10-16 07:55 | Outpatient (BNV) | payer MEDICARE, SELFPAY | PROVIDERS: PCP Internal Medicine; Visit Provider Internal Medicine Gastroenterology | DX: Z12.11 Encounter for screening for malignant neoplasm of colon (principal); K63.5 Polyp of colon; K57.90 Diverticulosis of intestine, part unspecified, without perforation or abscess without bleeding | CPT/HCPCS: 45385 ==

== ENCOUNTER 2025-02-05 09:13 | Outpatient (AMB) | payer MEDICARE, MEDICAID, SELFPAY ==
--- NOTE | 2025-02-05 09:26 | A.OFFVIS_ITS ---
Vital Signs 02/05/25 09:32 Height 5 ft Weight 115 lb BMI 22.5 BP 124/69 Blood Pressure Location Rt brachial Pulse 68 Pulse Oximetry (%) 99 Intake Visit Reasons: 6 mos FUV. GERD + CIC. Intake Note: Daily presents to in office follow up s/p colonoscopy. CC: Pt reports that two weeks ago she was invited to eat at [employer] and she began having abdominal discomfort, bloating, and nausea. She states that she is doing a little bit better because she has been cleaning herself and taking home remdies. She c/o constipation, GERD, and feeling weakness. 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 GERD + CIC.: Details: Assessment & Plan (1) Family history of colon cancer: Comment: Due for repeat scope in 2024 Code(s): Z80.0 - Family history of malignant neoplasm of digestive organs Category: Medical (2) Abdominal bloating: Code(s): R14.0 - Abdominal distension (gaseous) Category: Medical (3) GERD (gastroesophageal reflux disease): Code(s): K21.9 - Gastro-esophageal reflux disease without esophagitis Category: Medical (4) LUQ pain: Code(s): R10.12 - Left upper quadrant pain Category: Medical (5) DNR (do not resuscitate) discussion: Code(s): Z71.89 - Other specified counseling Category: Medical (6) Microcytic hypochromic anemia: Code(s): D50.9 - Iron deficiency anemia, unspecified Category: Medical (7) Elevated ferritin: Comment: Negative hemochromatosis genetic study Code(s): R79.89 - Other specified abnormal findings of blood chemistry Category: Medical Plan Bulgarian #Ericaira Live She continue omeprazole prn and magnesium and likes the OTC IB Guard. She is anxious and tearful today. Apparently, she feels she has difficulty communicating with her primary care provider because they do not provide professional Bulgarian interpreters so she always has to bring 1 of her children with her. She really does not want to share her personal business with her children, and the last time she was very upset because her primary care provider, per her report, took her son aside and told him that Daily needed to have a colonoscopy even though the patient wanted a Cologuard test. While clinically her concerns for valid, her methodology of going behind the back of the patient seems to have jeopardize there therapeutic relationship. Today Daily wants to discuss in detail Cologuard versus colonoscopy. One of her big concerns is the fear of the anesthesia more than anything else. She says she is not afraid she will , rather she is afraid that with the after effects and without anyone in her family who will be available to drive her home, she would be vulnerable to being robbed attacked etc. because she ?does not even know on me. ? This is actually a reasonable concern. She says she would be able to get a ride home but it would be a friend and she is bit miss trusting of anyone but her close family. I did tell her that we are using propofol now and unlike the conscious sedation that utilized a benzo and an opiate this is much quicker to wear off and he is usually do not have that retrograde amnesia and severe sedation that goes on for hours anymore. This makes her feel somewhat better. We also discussed utilization of Cologuard. I let her know that we certainly could do this but of course if it comes back positive then we need to talk about colonoscopy could that would be indicative of a polyp that needs to be removed. Her last colonoscopy was in [address] Rubio and was negative. After a long discussion she decides that we will order colonoscopy but she would prefer to have it done with Dr. Mcghee and of course she would prefer propofol anesthesia. She also wishes to fill out a do not resuscitate form and have it on file. Again she does not feel comfortable discussing this in front of her children with her primary. I did go to the website and printed the for and helped her to fill it out to her wishes. She does not want to be intubated or have CPR but she would be agreeable to CPAP use, dialysis and any or all ID treatments including blood transfusions if needed. I let her know that she should keep the paperwork on her because if she goes to a different hospital she will need it to make her wishes clear. She asks me about some lesions on her skin she is concerned about. I did a thorough check and the lesion she was discussing are simple coleman angiomas and I explained to her that these are quite benign. She wanted to review all of her blood work. She is concerned that she is anemic I yet she has not elevated ferritin. She has seen Hematology and they explained to her that this is simply a genetic variant because her body makes smaller red cells than usual. Under these circumstances she would not need any iron therapy. This in fact would be harmful to her liver. I tried to explain this to her never day language, and this does concur with what I read in cyber intel planner last note saying she likely has thalassemia a trait. She also wants an explanation of her cholesterol in detail including the meaning and importance of LDL HDL and triglyceride types. This was provided to her. There are no prior problems with anesthesia or sedation. She simply is very anxious that someone would take advantage of her if she has not fully recovered upon discharge. She denies any cardiac or respiratory problems. There are no infectious disease problems. Again she has a family history of colon cancer. Return office visit in 6 months and of course after the procedures. Orders: Orders Colonoscopy - GI Use Only Today Z80.0 - Family history of malignant neoplasm of digestive organs Medications: New sodium,potassium,mag sulfates 17.5-3.13-1.6 gram (Suprep Bowel Prep Kit) 480 mL orally; FOR COLONOSCOPY PREP 354 mL 0RF Refilled omeprazole 20 mg PO DAILY 30 days 30 caps 6RF K21.9 - Gastro-esophageal reflux disease without esophagitis simethicone after meals 180 mg PO QID 30 days 120 caps 6RF R14.0 - Abdominal distension (gaseous) COLONOSCOPY 10/16/24 Findings: Terminal Ileum: Not evaluated Cecum: Normal Ascending Colon: A 7-8 mm sessile polyp - removed with a cold snare. Transverse Colon: Normal Descending Colon: Normal Sigmoid Colon: Moderate diverticulosis Rectum: Normal Ano-rectum: Hypertrophied anal papillae Impression and Post Procedure Diagnosis: Colonoscopy Findings: One small polyp was removed Moderate diverticulosis seen in the sigmoid colon Plan: Pt has a FU appointment on 02/05/25 with Nubia Willard NP. Repeat Colonoscopy in 5 years if polyps are adenomatous and due to family history of colon cancer and polyps. BIOPSY Received: 10/16/24 Diagnosis Colon, ascending, polypectomy: Fragments of tubular adenoma; negative for high- grade dysplasia or carcinoma TODAYS VISIT Bulgarian #Debo Reardon [facility] Medical History (Updated 10/16/24 @ 09:43 by Ronit Fox RN) HLD (hyperlipidemia) HTN (hypertension) Microcytic anemia Urinary frequency Generalized abdominal pain Oral thrush Vitamin D deficiency Multinodular thyroid Surgical History H/O blepharoplasty History of esophagogastroduodenoscopy (EGD) History of colonoscopy Family History Father Leukemia Mother Colon cancer Sister Diabetes Hypertension Social History Household Members: Children Housing: Apartment Are you a primary physician locums urgent care to a significant other at home: No Do you presently have visiting nurse or other home services: No Alcohol intake: current Alcohol intake frequency: does not drink Patient Tobacco Use Status: Never used Tobacco e-Cigarette/Vaping Use: Never Used service: No Current occupational status: employed Review of Systems Const Denies fatigue, Denies fever(s), Denies night sweats, Denies poor appetite and Denies weight loss ENT Reports Normal hearing present, Denies dental pain, Denies dysphagia, Denies hearing loss, Denies mouth pain, Denies odynophagia, Denies throat swelling, Denies tongue swelling and Reports other (Dentition adequate) Card Reports no additional complaints Resp Reports no additional complaints GI Details: Denies abdominal pain, Denies melena, Denies bloating, Denies hematochezia, Reports constipation, Denies GI cramping, Denies dysphagia, Denies excessive flatus, Denies early satiety, Reports dyspepsia, Reports heartburn, Denies diarrhea, Denies nausea, Denies odynophagia, Denies vomiting and Denies hematemesis Skin/Breast Denies pruritus, Denies lesions, Denies rash and Denies jaundice Neuro Reports Normal hearing present and Denies Abnormal speech present Endo Denies fatigue Aller/Immun Denies throat swelling and Denies tongue swelling Physical Exam Vital Signs: Last Vital Signs Pulse 68 02/05/25 09:32 BP 124/69 02/05/25 09:32 Pulse Ox 99 02/05/25 09:32 BMI result Body Mass Index 22.5 Const General: cooperative, no acute distress, well developed and well groomed Nutritional Appearance: well nourished and obese Orientation/consciousness: oriented to person, oriented to place and oriented to time Limitations: language barrier HEENT Head: Yes normocephalic and Yes atraumatic Eyes General: appearance normal, both eyes and all related structures Pupils: Equal, round and reactive pupils present Neck Neck: Yes normal visual inspection and Yes no lymphadenopathy Thyroid: Thyroid normal Resp Effort & Inspection: normal respiratory effort and able to speak in complete sentences Auscultation: clear to auscultation bilaterally Cardio Rate: regular rate Rhythm: regular rhythm Heart sounds: Normal, physiologic split S2 sound present Peripheral pulses: radial pulses present and posterior tibial pulses present GI Inspection: No distended, Yes Abdominal panniculus present and Yes obesity Palpation (GI): Soft to palpation, nontender, no guarding, not rigid and Hepatosplenomegaly present Percussion: Yes normal to percussion Auscultation: normal bowel sounds Rectal Exam - Female: deferred Skin General skin exam: no rashes or lesions noted, turgor normal, skin not dry, no jaundice, No spider nevi and no striae Rashes: no rashes Nails: normal Neuro General: oriented to person, oriented to place and oriented to time Cranial nerves: Yes Equal, round and reactive pupils present and Yes Normal hearing present Speech: No Abnormal speech present Extrem General: Yes normal to inspection, No clubbing, No cyanosis and No edema Psych Appearance: grossly normal and well kempt Mental Status: mental status grossly normal Speech and movement: Normal speech and movement present Affect: normal affect Attitude: cooperative Thought process: Normal thought process present and not confabulating Thought content: Normal thought content present Insight: Limited insight present (Psych) Judgement: Limited judgement present (Psych) Results Reviewed Results Reviewed: COLONOSCOPY 10/16/24 Findings: Terminal Ileum: Not evaluated Cecum: Normal Ascending Colon: A 7-8 mm sessile polyp - removed with a cold snare. Transverse Colon: Normal Descending Colon: Normal Sigmoid Colon: Moderate diverticulosis Rectum: Normal Ano-rectum: Hypertrophied anal papillae Impression and Post Procedure Diagnosis: Colonoscopy Findings: One small polyp was removed Moderate diverticulosis seen in the sigmoid colon Plan: Pt has a FU appointment on 02/05/25 with Nubia Willard NP. Repeat Colonoscopy in 5 years if polyps are adenomatous and due to family history of colon cancer and polyps. BIOPSY Received: 10/16/24 Diagnosis Colon, ascending, polypectomy: Fragments of tubular adenoma; negative for high- grade dysplasia or carcinoma Assessment & Plan Assessment & Plan (1) GERD (gastroesophageal reflux disease): Code(s): K21.9 - Gastro-esophageal reflux disease without esophagitis Category: Medical (2) Constipation: Code(s): K59.00 - Constipation, unspecified Category: Medical Plan Bulgarian #Debo Live She continue omeprazole prn and magnesium and likes the OTC IB Guard. And she uses a senna tea. Subjective Chief Complaint Reflujo, sensaci?n de llenura, y estre?imiento desde hace ~2 semanas despu?s de consumir sopa de hueso/carne de res. History of Present Illness - GI symptoms began after eating beef bone soup about two weeks ago. - Current symptoms: reflux/heartburn, sensation of abdominal fullness, and constipation. Denies abdominal pain. - Bowel habits: last bowel movement yesterday, small amount; two days ago prior; previously moving well before the soup. Wants to avoid frequent stimulation of bowels. - Home remedies used: chamomile tea, warm water with lemon, and a teaspoon of olive oil; uses senna tea/pills sporadically with good effect but cautious due to strong effect; warm water helps. - Today feels a little better compared to prior days. - Prefers natural remedies and minimal use of ?chemical? medications. - Medications related to GI: magnesium taken regularly; omeprazole used the last few days due to reflux symptoms; previously used IBgard with benefit and plans to purchase again. Aware FDgard is for upper GI and IBgard for lower GI. - Colonoscopy recently completed; informed of a single polyp removed. Past Medical History - History of colon polyp removed on recent colonoscopy. Current Medications - Omeprazole (used over the last few days for reflux) - Magnesium (taken regularly) - Senna tea/pills ([id number], used intermittently) - IBgard ([id number]; previously helpful; plans to resume) Allergies Social History - Diet: avoids red meat; drinks beet and carrot juices. - Exercise: performs regular exercise. . Objective - Laboratory and Diagnostic Results - Recent colonoscopy: one polyp removed; described as typical low- grade/precancerous type. She should repeat her colonoscopy in 5 years. The procedure was well tolerated. The results were explained and the patient is agreeable to the follow-up interval as stated. The bowel pattern has returned to normal. Education was provided to tell any 1st degree relatives about their findings to be sure that they are screened by age 45. Educated that they will be put on a recall list when it is time for their repeat scope but should they move out of state or away from the hospital they will need to remember along with their primary to repeat the procedure in a timely fashion to avoid any adverse complications. Impression & Plan 1. Gastroesophageal reflux with dyspepsia/fullness - Intermittent reflux and upper GI discomfort following ingestion of beef bone soup. No abdominal pain. - Continue omeprazole as needed to control current flare; patient has been using the last few days with benefit. - May use FDgard for upper GI symptoms and IBgard for lower GI; patient plans to resume IBgard which previously helped. - Continue supportive measures that have been helpful (warm water with lemon, chamomile tea, dietary awareness). 2. Constipation - Recent decreased stool output with small, harder BMs; previously regular before triggering food. - Use senna temporarily to stimulate bowel movements; may increase use slightly short term as discussed, then taper back to intermittent use. - Continue hydration and warm water; continue magnesium as per usual routine. - Monitor response; call if not improving. 3. History of colon polyp, status post removal on recent colonoscopy - Single low-grade/precancerous polyp removed. - Next surveillance colonoscopy recommended in 5 years. Follow-up - Routine follow-up in 6 months, sooner if symptoms persist or worsen. Medications: Refilled magnesium oxide 400 mg PO BID 180 tabs 2RF K59.00 - Constipation, unspecified simethicone after meals 180 mg PO QID 120 caps 6RF 30 days R14.0 - Abdominal distension (gaseous) omeprazole 20 mg PO DAILY 30 caps 6RF 30 days K21.9 - Gastro-esophageal reflux disease without esophagitis Coding Level of Care Code Est Pt Level 3 (86344) Diagnoses GERD (gastroesophageal reflux disease) K21.9 Constipation K59.00
[2025-02-05 09:32] VITALS: BP 124/69; PULSE 68; O2SAT 99; BMI 22.5
== END 2025-02-05 10:20 | disposition home or self-care (01) ==
PROVIDERS: PCP Internal Medicine; Visit Provider Nurse Practitioner
DX: K21.9 Gastro-esophageal reflux disease without esophagitis (principal); K59.00 Constipation, unspecified
CPT/HCPCS: 99213

== ENCOUNTER → 2025-02-05 09:13 | Outpatient (BNVA) | payer OTHER, SELFPAY | PROVIDERS: PCP Internal Medicine; Visit Provider Nurse Practitioner | DX: K21.9 Gastro-esophageal reflux disease without esophagitis (principal); K59.00 Constipation, unspecified; R14.0 Abdominal distension (gaseous); Z86.0101 Personal history of adenomatous and serrated colon polyps; Z80.0 Family history of malignant neoplasm of digestive organs | CPT/HCPCS: 99212 ==